=== PATIENT | female | born 1960 | race Caucasian/White ===

== ENCOUNTER → 2016-06-22 | Outpatient (CLI) | payer OTHER ==
[~2016-06-22] VITALS: Ht 157.5 cm; Wt 109.1 kg
[~2016-06-22] MED LIST: CALCTAB5 PO; EFFSR150 PO; IBUP-1428 PO; MELO7.5T5 PO; ONDA4TAB7 SL; PANT40TA PO; TOPI100T20 PO
[2016-06-22 12:09] VITALS: BP 151/84; PULSE 96; Ht 157.5 cm; Wt 109.1 kg
== END | disposition home or self-care (01) ==
LOC: C.NEUR 11:45
PROVIDERS: ATTEND Internal Medicine Pulmonary Disease
DX: G47.33 Obstructive sleep apnea (adult) (pediatric) (principal); G43.009 Migraine without aura, not intractable, without status migrainosus; I10 Essential (primary) hypertension

== ENCOUNTER → 2016-08-25 | Outpatient (CLI) | payer OTHER ==
--- NOTE | 2016-08-25 12:32 | MAMMOGRAPHY REPORT ---
BILATERAL DIGITAL SCREENING MAMMOGRAM TOMOSYNTHESIS WITH CAD: 08/25/2016 CLINICAL HISTORY: Routine screening. Patient has no complaints. TECHNIQUE: Breast tomosynthesis in addition to standard 2D mammography was performed. Current study was also evaluated with a Computer Aided Detection (CAD) system. COMPARISON: Comparison is made to exams dated: 08/21/2015 mammogram, 08/14/2013 mammogram, 08/20/2014 mammogram, 08/08/2012 mammogram, and 02/15/2012 mammogram - [facility]. BREAST COMPOSITION: The tissue of both breasts is almost entirely fatty. FINDINGS: No suspicious masses, calcifications, or areas of architectural distortion are noted in e ither breast. There has been no significant interval change compared to prior exams. There are stab le postsurgical changes from bilateral reduction mammoplasty. Bilateral benign-appearing calcificat ions are not significantly changed. Bilateral asymmetries are stable. IMPRESSION: ACR BI-RADS CATEGORY 2: BENIGN There is no mammographic evidence of malignancy. A 1 year screening mammogram is recommended. The p atient will receive written notification of the results. Approximately 10% of breast cancers are not detected with mammography. A negative mammographic repor t should not delay biopsy if a clinically suggestive mass is present. Alena Cervantes M.D. ah/:08/25/2016 07:40:42 Credit Support Counselor: Selene HARTMAN(R)(M), [facility] letter sent: Normal 1/2 BI-RADS Code: ACR BI-RADS Category 2: Benign
== END | disposition home or self-care (01) ==
LOC: C.MAMM 07:13
PROVIDERS: ATTEND Family Medicine
DX: Z12.31 Encounter for screening mammogram for malignant neoplasm of breast (principal)

== ENCOUNTER → 2017-06-21 | Outpatient (CLI) | payer OTHER ==
[~2017-06-21] VITALS: Ht 157.5 cm; Wt 110.7 kg
[2017-06-21 15:26] VITALS: BP 135/82; PULSE 83; Ht 157.5 cm; Wt 110.7 kg
== END | disposition home or self-care (01) ==
LOC: C.NEUR 14:42
PROVIDERS: ATTEND Internal Medicine Pulmonary Disease
DX: G47.33 Obstructive sleep apnea (adult) (pediatric) (principal); I10 Essential (primary) hypertension; G43.009 Migraine without aura, not intractable, without status migrainosus

== ENCOUNTER → 2017-08-31 | Outpatient (CLI) | payer OTHER ==
--- NOTE | 2017-09-01 07:49 | MAMMOGRAPHY REPORT ---
BILATERAL DIGITAL SCREENING MAMMOGRAM TOMOSYNTHESIS WITH CAD: 08/31/2017 CLINICAL HISTORY: Routine screening. TECHNIQUE: Breast tomosynthesis in addition to standard 2D mammography was performed. Current study was also evaluated with a Computer Aided Detection (CAD) system. COMPARISON: Comparison is made to exams dated: 08/25/2016 mammogram, 08/20/2014 mammogram, 08/21/2015 m ammogram, 08/14/2013 mammogram, 08/08/2012 mammogram, and 08/06/2011 mammogram - [facility]. BREAST COMPOSITION: The tissue of both breasts is almost entirely fatty. FINDINGS: There is evidence of bilateral reduction mammoplasty. Stable focal asymmetry in the upper outer quadrant of the right breast appears similar dating back to at least 07/31/2009, therefore likel y benign. No new suspicious mass, architectural distortion or cluster of microcalcifications is seen . IMPRESSION: ACR BI-RADS CATEGORY 1: NEGATIVE There is no mammographic evidence of malignancy. A 1 year screening mammogram is recommended. The pa tient will receive written notification of the results. Approximately 10% of breast cancers are not detected with mammography. A negative mammographic report should not delay biopsy if a clinically suggestive mass is present. Caitlin Byrne M.D. ay/:08/31/2017 08:09:53 Endodontics Dentist: John Paul HARTMAN(Hi)(M), [facility] letter sent: Normal 1/2 BI-RADS Code: ACR BI-RADS Category 1: Negative
== END | disposition home or self-care (01) ==
LOC: C.MAMM 07:17
PROVIDERS: ATTEND Family Medicine
DX: Z12.31 Encounter for screening mammogram for malignant neoplasm of breast (principal)

== ENCOUNTER 2023-02-01 23:40 | Inpatient (IN) ==
[2023-02-02 00:24] LABS: Appearance Urine Slightly Cloudy (Clear); Bilirubin Urine Negative (Negative); Blood Urine Negative (Negative); Color Urine Yellow; Glucose Urine UA Negative (Negative); Ketones Urine Negative (Negative); Leukocyte Esterase Urine Negative (Negative); Nitrite Urine Negative (Negative); Protein Urine Negative (Negative); Urobilinogen Urine Negative (Negative)
[2023-02-02 00:25] LABS: Basophils # (auto) 0.02 K/uL (0.00-0.20); Basophils % (auto) 0.3 %; Eosinophils # (auto) 0.02 K/uL (0.00-0.50); Eosinophils % (auto) 0.3 %; Hemoglobin 12.3 g/dl (12.0-16.0); Immature Granulocytes # (auto) 0.02 K/uL (0.01-0.20); Immature Granulocytes % (auto) 0.3 %; Lymphocytes % (auto) 16.2 %; Mean Corpuscular Hemoglobin 27.8 pg (25.0-34.0); Mean Corpuscular Hgb Conc 33.2 g/dL (32.0-36.0); Mean Corpuscular Volume 83.7 fL (80.0-100.0); Mean Platelet Volume 10.2 fL (9.4-12.4); Monocytes # (auto) 0.29 K/uL (0.11-0.59); Monocytes % (auto) 4.7 %; Neutrophils # (auto) 4.84 K/uL (1.40-6.50); Neutrophils % (auto) 78.2 %; Platelet Count 177 K/uL (130-400); RDW Coefficient of Variation 14.3 % (11.5-14.5); RDW Standard Deviation 43.4 fL (36.4-46.3); Red Blood Count 4.42 M/uL (4.20-5.40); White Blood Count 6.19 K/ul (4.8-10.8)
[2023-02-02 00:42] LABS: Albumin Globulin Ratio 1.5 (0.9-2); Albumin Level 4.1 gm/dl (3.4-5.0); BUN Creatinine Ratio 14.6 (10-20); Creatinine Clr Calc Pharmacy 77.3 ml/min; Est GFR (African American) 88.3 ml/min; Est GFR (Non-African American) 76.2 ml/min; Globulin 2.8 gm/dl (2.5-4.0); Potassium 3.8 mmol/L (3.5-5.1); Total Protein 6.9 gm/dl (6.0-8.3)
[2023-02-02] MEDS ORDERED: ONDANSETRON INJ 2 MG/ML 2 ML VIAL IV STA (00:42)
[2023-02-02] MEDS ORDERED: SODIUM CHLORIDE 0.9% 1,000 ML IV ONE ×3 (00:42→02:56)
[2023-02-02] MEDS ORDERED: MoRPHine SULFATE 4 MG/ML 1 ML CARP\\VIAL IV STA (00:42)
--- NOTE | 2023-02-02 00:44 | Emergency Department Note ---
Impression & Plan Fever ADMIT ED Provider Note HPI: The patient is a 63-year-old female who presents emergency department with a chief complaint of epigastric pain. Patient states this pain has been ongoing since yesterday morning. Patient states that she was drinking on Tuesday aftern oon had multiple alcoholic beverages and the pain began Tuesday morning when she woke up. Patient states that last night she also began developing some subjective fevers. Patient denies any vomiting but states the pain was getting worse today and therefore she came to the ED to be assessed. Patient states she has had a diminished appetite, on arrival here to the ED the patient is hemodynamically stable, she is in no acute distress on my initial assessment. ROS: - Per HPI Differential Diagnosis: Acute gastritis, acute pancreatitis, acute cholecystitis, choledocholithiasis, diverticulitis flare, pneumonia, urinary tract infection, pyelonephritis, amongst other potential pathologies. *Outpatient medications and allergy history reviewed. *Pertinent external medical records reviewed. PE: General: Alert HEENT: Normocephalic, trachea midline Eyes: Extraocular eye movement is intact, no scleral erythema Pulmonary: Clear to auscultation bilaterally, no wheezing Cardio: Regular rate and rhythm GI: Abdomen is soft to palpation, there is moderate tenderness over the e pigastric area to palpation without guarding or rigidity : No suprapubic tenderness MSK: No evidence of trauma or malformation of the extremities, no edema Skin: No evidence of rash Neuro: Alert, no focal deficits Psychiatric: Cooperative feed mixer: (As interpreted by myself): - An order was placed for continuous cardiac monitoring - Patient was noted to be in sinus rhythm with a rate of 102 EKG: (As interpreted by myself): Rate: 85 Rhythm: Normal sinus rhythm Intervals: Within normal limits ST changes: No ST elevation Time: 0008 Interventions provided in ED: -IV Tylenol, IV fluid bolus, IV Zofran, IV cefepime Medical Decision Making: Shortly after the patient arrived IV was established lab work obtained, patient was placed on drug abuse social worker. Lab work shows no leukocytosis, hemoglobin is normal, platelet count is normal, CMP does not show any critical findings, lipase is noted to be slightly elevated at 151. Urinalysis does not show any evidence of infection. Viral panel testing was obtained and is negative. CT imaging of the abdomen pelvis does not show any acute inflammatory pathology. There is no evidence of any peripancreatic inflammation. Patient's lipase is slightly elevated at 151. She does have epigastric tenderness, she may have an early mild pancreatitis. While here in the ED patient became tachycardic into the low 100s and also spiked a fever to 38.3. She denies any headache and does not appear meningitic on my exam, denies any recent cough or shortness of breath. Denies any recent dysuria. Unclear source for the patient's fever but given her abdominal pain and worsening vital signs she was ordered a full 30 cc/kg of IV fluid, lactic acid, procalcitonin, Lyme testing, and Anaplasma testing were also added. Chest x-ray also added. Patient was prophylactically treated with IV cefepime following drawing blood cultures. I discussed all the above findings with the patient, at this time given fever of unknown origin with tachycardia will admit for broad-spectrum antibiotics and follow-up on blood cultures over concern for sepsis of unknown origin. Patient is in agreement to this plan. [facility] hospitalist service was consulted for admission and the patient was placed for admission in stable condition. Consultants: Dr. Tracy, hospitalist Disposition discussion held by myself with: Patient Diagnosis: 1. Fever of unknown origin 2. Abdominal pain, acute 3. Nausea, acute 4. Elevated lipase Disposition: Admission Gen Guzman DO Emergency Medicine Past Med/Surg History Medical History Common migraine without aura Depression Diabetes mellitus, type 2 Diverticular disease Esophageal reflux Hepatic steatosis Hiatal hernia HTN (hypertension) Hyperlipidemia IBS (irritable bowel syndrome) Insomnia Severe sleep apnea Vertigo Surgical History History of colonoscopy History of esophagogastroduodenoscopy (EGD) History of tooth extraction Hx of arthroscopy of left knee Hx of cataract extraction Hx of section S/P ORIF (open reduction internal fixation) fracture S/P reduction mammoplasty Tear of meniscus of left knee Family History Mother Lung cancer Heart valve replaced Stomach cancer Gallbladder disease Hypertension Kidney disease Lung disease Father Lung cancer Sister Hypertension Atrial fibrillation Ovarian cancer Brother Obstructive sleep apnea Atrial fibrillation Other No significant family history Denies family history of Prostate cancer Myocardial infarction Breast cancer Colorectal cancer Social History Smoking Status: Never smoker Second Hand Exposure: Yes (hx. parents smoked); Do You Dip or Chew Tobacco: No; Hx Alcohol Use: Yes Alcohol type: beer, wine and hard liquor Alcohol Intake Frequency: 2-3 x/Week Alcohol Intake Frequency Comment: 3 drinks/week Hx Substance Use: No Preferred Language: Turkmen Communication Ability: Effective Visual Impairment: No Limitations Hearing Ability: Normal Tube Turner Required: No Beliefs That Will Affect Care: None marital status: Current Living Situation: Spouse current occupational status: retired current occupation: [employer] Work[employer] How many Children do You have: 1 Feels Safe at Home: Yes Childhood Exposure to Second-Hand Smoke: Yes Diet: regular caffeine: Yes during the past year weight has: decreased > 10 lbs Dental Care, Regularly: Yes Physical Activity Frequency: Does not Exercise Seatbelt Use: always Sunscreen Use: Yes Assistive Devices: CPAP and Glasses Allergies Allergies Allergy/AdvReac Type Severity Reaction Status Date / Time hydromorphone [From Dilaudid] AdvReac Severe Migraine Verified 02/02/23 00:53 morphine AdvReac Severe HEADACHE Verified 02/02/23 00:53 Home Meds Home Medications Medication Instructions Recorded Confirmed lorazepam 0.5 mg tablet 0.5 mg PO UD PRN Anxiety #30 tabs 12/28/18 02/02/23 meclizine 25 mg tablet 12.5 - 25 mg PO UD PRN Vertigo #30 03/06/19 02/02/23 tabs cholecalciferol (vitamin D3) 125 125 mcg PO QAM 11/17/21 02/02/23 mcg (5,000 unit) capsule alendronate 5 mg tablet 5 mg PO WK 03/23/22 02/02/23 atorvastatin 10 mg tablet 10 mg PO QPM 02/02/23 02/02/23 metformin 750 mg tablet,extended 750 mg PO QAM 02/02/23 02/02/23 release 24 hr semaglutide 1 mg/dose (4 mg/3 mL) 1 mg subcut WK 02/02/23 02/02/23 subcutaneous pen injector Previous Rx's Medication Instructions Recorded cyclobenzaprine 5 mg tablet 5 mg PO TID PRN muscle spasm #30 12/13/19 tabs dicyclomine 20 mg tablet 20 mg PO QID PRN diarrhea #120 tabs 11/13/20 naproxen 500 mg tablet 500 mg PO BID PRN pain #14 tabs 05/13/21 blood-glucose meter (SmithaTouch #1 ea 08/11/21 Ultra2 Meter kit) pen needle, diabetic 32 gauge x #100 ea 11/04/21" (BD Manju 2nd Gen Pen Needle) lancets (TanslerTouch UltraSoft #100 ea 04/19/22 Lancets) lisinopril 10 mg tablet 10 mg PO QAM #90 tabs 11/08/22 pantoprazole 40 mg tablet,delayed 40 mg PO QAM #90 tabs 11/08/22 release venlafaxine 75 mg capsule,extended 75 mg PO QAM #90 caps 11/08/22 release 24 hr Results & Data (ED) Vital Signs Vital Signs - 24 hr 02/01/23 23:45 02/02/23 00:30 02/02/23 01:00 Temperature 37.5 C Temperature Source Temporal Artery Scan Pulse Rate 95 H 90 82 Pulse Rate from SpO2 Sensor 89 83 Respiratory Rate 17 23 22 Blood Pressure 121/77 148/82 H 159/73 H Blood Pressure Mean 91 104 101 Pulse Oximetry 95 96 93 Oxygen Delivery Method Room Air Room Air Room Air Sepsis Recent Fever Within 48 Hours Yes Sepsis New/Unexplained Change in Mental Status No Sepsis Action Taken by Nursing No Action Required 02/02/23 01:32 02/02/23 01:34 02/02/23 01:34 Temperature Temperature Source Pulse Rate 122 H 114 H Pulse Rate from SpO2 Sensor 115 H Respiratory Rate 15 17 Blood Pressure 146/91 H Blood Pressure Mean 108 Pulse Oximetry 98 Oxygen Delivery Method Sepsis Recent Fever Within 48 Hours Sepsis New/Unexplained Change in Mental Status Sepsis Action Taken by Nursing 02/02/23 02:03 02/02/23 02:00 Temperature 38.3 C H Temperature Source Oral Pulse Rate 111 H Pulse Rate from SpO2 Sensor 111 H Respiratory Rate 24 Blood Pressure 130/76 Blood Pressure Mean 94 Pulse Oximetry 94 Oxygen Delivery Method Room Air Sepsis Recent Fever Within 48 Hours Sepsis New/Unexplained Change in Mental Status Sepsis Action Taken by Nursing Laboratory Data 02/02/23 00:00 02/02/23 00:00 Lab Results 02/02/23 02/02/23 02/02/23 Range/Units 00:00 00:00 00:00 WBC 6.19 (4.8-10.8) K/ul RBC 4.42 (4.20-5.40) M/uL Hgb 12.3 (12.0-16.0) g/dl Hct 37.0 (37.0-47.0) % MCV 83.7 (80.0-100.0) fL MCH 27.8 (25.0-34.0) pg MCHC 33.2 (32.0-36.0) g/dL RDW Std Deviation 43.4 (36.4-46.3) fL RDW Coeff of Louis 14.3 (11.5-14.5) % Plt Count 177 (130-400) K/uL MPV 10.2 (9.4-12.4) fL Immature Gran % (Auto) 0.3 % Neut % (Auto) 78.2 % Lymph % (Auto) 16.2 % [place] % (Auto) 4.7 % Eos % (Auto) 0.3 % Baso % (Auto) 0.3 % Neut # (Auto) 4.84 (1.40-6.50) K/uL Lymph # (Auto) 1.00 L (1.20-3.40) K/uL [place] # (Auto) 0.29 (0.11-0.59) K/uL Eos # (Auto) 0.02 (0.00-0.50) K/uL Baso # (Auto) 0.02 (0.00-0.20) K/uL Immature Gran # (Auto) 0.02 (0.01-0.20) K/uL PT 11.0 (9.0-12.0) Seconds INR 1.0 (0.9-1.1) Sodium 135 L (136-145) mmol/L Potassium 3.8 (3.5-5.1) mmol/L Chloride 101 (98-107) mmol/L Carbon Dioxide 25 (21-32) mmol/L Anion Gap 9 (3-11) BUN 12 (6-23) mg/dl Creatinine 0.82 (0.6-1.2) mg/dl Est Cr Clr Drug Dosing 77.3 ml/min Est GFR ( Amer) 88.3 ml/min Est GFR (Non-Af Amer) 76.2 ml/min BUN/Creatinine Ratio 14.6 (10-20) Glucose 125 H (70-99(Fasting)) mg/dl Calcium 9.0 (8.6-10.3) mg/dl Total Bilirubin 1.0 (0.2-1.0) mg/dl AST 30 (13-39) U/L ALT 74 H (7-52) U/L Alkaline Phosphatase 74 (34-104) U/L Troponin I High Sens 3.4 (0-14) pg/ml Total Protein 6.9 (6.0-8.3) gm/dl Albumin 4.1 (3.4-5.0) gm/dl Globulin 2.8 (2.5-4.0) gm/dl Albumin/Globulin Ratio 1.5 (0.9-2) Lipase 151 H (11-82) U/L Urine Color Urine Appearance (Clear) Urine pH (4.5-7.5) Ur Specific Violet (1.000-1.030) Urine Protein (Negative) Urine Glucose (UA) (Negative) Urine Ketones (Negative) Urine Blood (Negative) Urine Nitrite (Negative) Urine Bilirubin (Negative) Urine Urobilinogen (Negative) Ur Leukocyte Esterase (Negative) Adenovirus (PCR) (NotDetected) B. pertussis DNA (PCR) (NotDetected) B.parapertussis DNA PCR (NotDetected) C. pneumoniae DNA (PCR) (NotDetected) Coronavirus OC43 (PCR) (NotDetected) Coronavirus HKU1 (PCR) (NotDetected) Coronavirus 229E (PCR) (NotDetected) SARS-CoV-2 (PCR) (NotDetected) Coronavirus NL63 (PCR) (NotDetected) Human Metapneumovir PCR (NotDetected) Influenza Type A (PCR) (NotDetected) Influenza Type B (PCR) (NotDetected) M. pneumoniae (PCR) (NotDetected) Parainfluenza 1 (PCR) (NotDetected) Parainfluenza 2 (PCR) (NotDetected) Parainfluenza 3 (PCR) (NotDetected) Parainfluenza 4 (PCR) (NotDetected) RSV (PCR) (NotDetected) Entero/Rhino (PCR) (NotDetected) 02/02/23 02/02/23 Range/Units 00:00 01:44 WBC (4.8-10.8) K/ul RBC (4.20-5.40) M/uL Hgb (12.0-16.0) g/dl Hct (37.0-47.0) % MCV (80.0-100.0) fL MCH (25.0-34.0) pg MCHC (32.0-36.0) g/dL RDW Std Deviation (36.4-46.3) fL RDW Coeff of Louis (11.5-14.5) % Plt Count (130-400) K/uL MPV (9.4-12.4) fL Immature Gran % (Auto) % Neut % (Auto) % Lymph % (Auto) % [place] % (Auto) % Eos % (Auto) % Baso % (Auto) % Neut # (Auto) (1.40-6.50) K/uL Lymph # (Auto) (1.20-3.40) K/uL [place] # (Auto) (0.11-0.59) K/uL Eos # (Auto) (0.00-0.50) K/uL Baso # (Auto) (0.00-0.20) K/uL Immature Gran # (Auto) (0.01-0.20) K/uL PT (9.0-12.0) Seconds INR (0.9-1.1) Sodium (136-145) mmol/L Potassium (3.5-5.1) mmol/L Chloride (98-107) mmol/L Carbon Dioxide (21-32) mmol/L Anion Gap (3-11) BUN (6-23) mg/dl Creatinine (0.6-1.2) mg/dl Est Cr Clr Drug Dosing ml/min Est GFR ( Amer) ml/min Est GFR (Non-Af Amer) ml/min BUN/Creatinine Ratio (10-20) Glucose (70-99(Fasting)) mg/dl Calcium (8.6-10.3) mg/dl Total Bilirubin (0.2-1.0) mg/dl AST (13-39) U/L ALT (7-52) U/L Alkaline Phosphatase (34-104) U/L Troponin I High Sens (0-14) pg/ml Total Protein (6.0-8.3) gm/dl Albumin (3.4-5.0) gm/dl Globulin (2.5-4.0) gm/dl Albumin/Globulin Ratio (0.9-2) Lipase (11-82) U/L Urine Color Yellow Urine Appearance Slightly Cloudy (Clear) Urine pH 6.0 (4.5-7.5) Ur Specific Violet 1.010 (1.000-1.030) Urine Protein Negative (Negative) Urine Glucose (UA) Negative (Negative) Urine Ketones Negative (Negative) Urine Blood Negative (Negative) Urine Nitrite Negative (Negative) Urine Bilirubin Negative (Negative) Urine Urobilinogen Negative (Negative) Ur Leukocyte Esterase Negative (Negative) Adenovirus (PCR) Not Detected (NotDetected) B. pertussis DNA (PCR) Not Detected (NotDetected) B.parapertussis DNA PCR Not Detected (NotDetected) C. pneumoniae DNA (PCR) Not Detected (NotDetected) Coronavirus OC43 (PCR) Not Detected (NotDetected) Coronavirus HKU1 (PCR) Not Detected (NotDetected) Coronavirus 229E (PCR) Not Detected (NotDetected) SARS-CoV-2 (PCR) Not Detected (NotDetected) Coronavirus NL63 (PCR) Not Detected (NotDetected) Human Metapneumovir PCR Not Detected (NotDetected) Influenza Type A (PCR) Not Detected (NotDetected) Influenza Type B (PCR) Not Detected (NotDetected) M. pneumoniae (PCR) Not Detected (NotDetected) Parainfluenza 1 (PCR) Not Detected (NotDetected) Parainfluenza 2 (PCR) Not Detected (NotDetected) Parainfluenza 3 (PCR) Not Detected (NotDetected) Parainfluenza 4 (PCR) Not Detected (NotDetected) RSV (PCR) Not Detected (NotDetected) Entero/Rhino (PCR) Not Detected (NotDetected) Administered Medications Discontinued Medications Sodium Chloride (Nss 1000ml) 1,000 mls @ 999 mls/hr IV .Q1H1M ONE Stop: 02/02/23 01:42 Last Infusion: 02/02/23 01:59 Dose: 0 mls/hr Documented By: Admin: 02/02/23 00:53 Dose: 999 mls/hr Documented By: MARYJO Acetaminophen (Ofirmev) 1,000 mg in 100 mls @ 400 mls/hr IV NOW STA Stop: 02/02/23 02:18 Last Infusion: 02/02/23 02:28 Dose: 0 mls/hr Documented By: Admin: 02/02/23 02:07 Dose: 400 mls/hr Documented By: MARYJO Ioversol (Optiray 320 100ml) 100 ml IV ONCE ONE Stop: 02/02/23 01:33 Last Admin: 02/02/23 01:32 Dose: 90 ml Documented By: PHU Morphine Sulfate (Morphine Sulfate 4 Mg/Ml 1 Ml Carp\\Vial) 4 mg IV NOW STA Stop: 02/02/23 00:43 Last Admin: 02/02/23 00:50 Dose: Not Given Documented By: MARYJO Ondansetron HCl (Ondansetron Inj 2 Mg/Ml 2 Ml Vial) 4 mg IV NOW STA Stop: 02/02/23 00:43 Last Admin: 02/02/23 00:53 Dose: 4 mg Documented By: MARYJO Imaging Data Radiologist's Impression: Abdomen/Pelvis CT 02/02/23 00:36 Exam(s): CT ABDOMEN + PELVIS With Contrast IV Amt: 90 ML OPTIRAY 320 EXAM: CT Abdomen and Pelvis With Intravenous Contrast CLINICAL HISTORY: Reason for exam: epigastric pain. TECHNIQUE: Axial computed tomography images of the abdomen and pelvis with intravenous contrast. CTDI is 28.04 mGy and DLP is 1437.97 mGy-cm. Automated exposure control was utilized for the study. A dose lowering technique was utilized adhering to the principles of ALARA. CONTRAST: Patient received 90 ML OPTIRAY 320 of IV contrast COMPARISON: 02/12/2018. FINDINGS: Lung bases: Minimal bilateral lower lobe atelectasis. ABDOMEN: Liver: Mild diffuse fatty liver. Gallbladder and bile ducts: Unremarkable. No calcified stones. No ductal dilation. Pancreas: Unremarkable. No mass. No ductal dilation. Spleen: Unremarkable. No splenomegaly. Adrenals: Unremarkable. No mass. Kidneys and ureters: Unremarkable. No solid mass. No hydronephrosis. Stomach and bowel: Mild multilevel diverticulosis with no signs of diverticulitis. No obstruction. PELVIS: Appendix: Normal appendix. Bladder: Unremarkable. No mass. Reproductive: Unremarkable as visualized. ABDOMEN and PELVIS: Intraperitoneal space: Unremarkable. No free air. No significant fluid collection. Bones/joints: Multilevel degenerative disease of the spine. No acute fracture. No dislocation. Soft tissues: Unremarkable. Vasculature: Unremarkable. No abdominal aortic aneurysm. Lymph nodes: Unremarkable. No enlarged lymph nodes. IMPRESSION: 1. Diverticulosis with no signs of diverticulitis. No acute appendicitis or bowel obstruction. 2. Mild diffuse fatty liver, otherwise unremarkable abdominal viscera. Electronically signed by: Ny Adam MD 02/02/23 02:22 AM Discharge Plan Visit Data Chief Complaint: Abdominal Pain Stated Complaint: ABDOMINAL PAIN -UPPER INTO BACK,[id number] ED Provider: Gen Guzman Discharge Problem: Fever Forms Stand Alone Forms: [facility] [employer] Prescriptions Prescriptions: No Action dicyclomine 20 mg tablet 20 mg PO QID PRN (Reason: diarrhea) Qty: 120 2RF (DME) pen needle, diabetic [BD Manju 2nd Gen Pen Needle] 32 gauge x 5/32" needle See Rx Instructions .Route Qty: 100 5RF Rx Instructions: USE ONCE DAILY WITH INSULIN; DX CODE- E11.9 (DME) lancets [TanslerTouch UltraSoft Lancets] [facility] See Rx Instructions .Route Qty: 100 3RF Rx Instructions: TEST TWICE DAILY lisinopril 10 mg tablet 10 mg PO QAM Qty: 90 1RF Rx Instructions: TAKE 1 TABLET EVERY MORNING venlafaxine 75 mg capsule,extended release 24hr 75 mg PO QAM Qty: 90 1RF Rx Instructions: TAKE 1 CAPSULE EVERY MORNING pantoprazole 40 mg tablet,delayed release (DR/EC) 40 mg PO QAM Qty: 90 1RF Rx Instructions: TAKE 1 TABLET EVERY MORNING lorazepam 0.5 mg tablet 0.5 mg PO UD PRN (Reason: Anxiety) Qty: 30 meclizine 25 mg tablet 12.5 - 25 mg PO UD PRN (Reason: Vertigo) Qty: 30 (DME) blood-glucose meter [TanslerTouch Ultra2 Meter] Kit See Rx Instructions .Route Qty: 1 0RF Rx Instructions: TEST TWICE DAILY cholecalciferol (vitamin D3) 125 mcg (5,000 unit) capsule 125 mcg PO QAM alendronate 5 mg tablet 5 mg PO WK Rx Instructions: MONDAYS cyclobenzaprine 5 mg tablet 5 mg PO TID PRN (Reason: muscle spasm) Qty: 30 0RF naproxen 500 mg tablet 500 mg PO BID PRN (Reason: pain) Qty: 14 1RF atorvastatin 10 mg tablet 10 mg PO QPM Rx Instructions: TAKE 1 TABLET DAILY IN THE EVENING metformin 750 mg tablet extended release 24 hr 750 mg PO QAM Rx Instructions: TAKE 1 TABLET DAILY IN THE MORNING semaglutide 1 mg/dose (4 mg/3 mL) pen injector 1 mg subcut WK Rx Instructions: THURSDAYS Referrals Referrals: Gisell Massey MD [Primary Care Provider] -
[2023-02-02 00:48] LABS: Troponin I High Sensitivity 3.4 pg/ml (0-14)
[2023-02-02] MEDS ORDERED: OPTIRAY 320 100ml IV ONE (01:32)
[2023-02-02] MEDS ORDERED: ACETAMINOPHEN 1,000 MG/100 ML VIAL IV STA (02:04)
--- NOTE | 2023-02-02 02:23 | CT Scan Report ---
Exam(s): CT ABDOMEN + PELVIS With Contrast IV Amt: 90 ML OPTIRAY 320 EXAM: CT Abdomen and Pelvis With Intravenous Contrast CLINICAL HISTORY: Reason for exam: epigastric pain. TECHNIQUE: Axial computed tomography images of the abdomen and pelvis with intravenous contrast. CTDI is 28.04 mGy and DLP is 1437.97 mGy-cm. Automated exposure control was utilized for the study. A dose lowering technique was utilized adhering to the principles of ALARA. CONTRAST: Patient received 90 ML OPTIRAY 320 of IV contrast COMPARISON: 02/12/2018. FINDINGS: Lung bases: Minimal bilateral lower lobe atelectasis. ABDOMEN: Liver: Mild diffuse fatty liver. Gallbladder and bile ducts: Unremarkable. No calcified stones. No ductal dilation. Pancreas: Unremarkable. No mass. No ductal dilation. Spleen: Unremarkable. No splenomegaly. Adrenals: Unremarkable. No mass. Kidneys and ureters: Unremarkable. No solid mass. No hydronephrosis. Stomach and bowel: Mild multilevel diverticulosis with no signs of diverticulitis. No obstruction. PELVIS: Appendix: Normal appendix. Bladder: Unremarkable. No mass. Reproductive: Unremarkable as visualized. ABDOMEN and PELVIS: Intraperitoneal space: Unremarkable. No free air. No significant fluid collection. Bones/joints: Multilevel degenerative disease of the spine. No acute fracture. No dislocation. Soft tissues: Unremarkable. Vasculature: Unremarkable. No abdominal aortic aneurysm. Lymph nodes: Unremarkable. No enlarged lymph nodes. IMPRESSION: 1. Diverticulosis with no signs of diverticulitis. No acute appendicitis or bowel obstruction. 2. Mild diffuse fatty liver, otherwise unremarkable abdominal viscera. Electronically signed by: Ny Adam MD 02/02/23 02:22 AM
[2023-02-02] MEDS ORDERED: PANTOprazole 40 MG in SYRINGE 0 ML IV ONE (02:25)
[2023-02-02 02:42] LABS: Adenovirus PCR Not Detected (NotDetected); Bordetella parapertussis PCR Not Detected (NotDetected); Bordetella pertussis PCR Not Detected (NotDetected); Chlamydia pneumoniae PCR Not Detected (NotDetected); Coronavirus 229E PCR Not Detected (NotDetected); Coronavirus CoV-2 (COVID19)PCR Not Detected (NotDetected); Coronavirus HKU1 PCR Not Detected (NotDetected); Coronavirus NL63 PCR Not Detected (NotDetected); Coronavirus OC43PCR Not Detected (NotDetected); Human Metapneumovirus PCR Not Detected (NotDetected); Influenza A PCR Not Detected (NotDetected); Influenza B PCR Not Detected (NotDetected); Mycoplasma pneumoniae PCR Not Detected (NotDetected); Parainfluenza Virus 1 PCR Not Detected (NotDetected); Parainfluenza Virus 2 PCR Not Detected (NotDetected); Parainfluenza Virus 3 PCR Not Detected (NotDetected); Parainfluenza Virus 4 PCR Not Detected (NotDetected); Respiratory Syncytial VirusPCR Not Detected (NotDetected); Rhinovirus/Enterovirus PCR Not Detected (NotDetected)
[2023-02-02] MEDS ORDERED: CEFEPIME 2,000 MG/20 ML VIAL IV STA (02:54)
--- NOTE | 2023-02-02 03:32 | History & Physical Report ---
Date of Service February 02, 2023 Assessment & Plan (1) Hepatic steatosis: (2) Hyperlipidemia: (3) Depression: (4) Esophageal reflux: (5) Transaminitis: (6) Elevated lipase: (7) Right upper quadrant pain: (8) Fever: (9) Hypertension: (10) DM2 (diabetes mellitus, type 2): (11) Severe sleep apnea: Plan Fever/right upper quadrant pain/transaminitis/elevated lipase- CT scan with mild fatty liver ALT 74, lipase 151 Examination and laboratories consistent with gallbladder issue possible gallstone pancreatitis Differential also includes alcohol associated pancreatitis NPO Cefepime 2 g IV every 12 hours Order HIDA scan Pantoprazole 40 mg IV daily NSS + KCl 20 mEq at 80 mils per hour Zofran 4 mg IV every 6 hours as needed Serial CBC with differential, chemistry profile and lipase Patient reports having a EGD performed on 01/03/[address] Peck, in which she had gastric polyps but no other issues Consult GI/surgery depend upon results of HIDA scan Diabetes mellitus- Hold metformin and semaglutide Place on Accu-Cheks with NovoLog SSI Hypertension- Hold lisinopril GERD- Pantoprazole changed to IV as noted above History of Present Illness Chief Complaint: The patient presents to the emergency department with complaint of epigastric pain that began yesterday morning, after having had food and alcohol intake the previous day. Last evening she developed fevers, felt warm, had some nausea wit hout vomiting, and did occasionally have pain radiating from her epigastric area around to her side and back. Primary Care Provider: Gisell Massey MD The patient is a 63-year-old female with a past medical history including hypertension, diabetes mellitus, ELVIRA requiring CPAP, hyperlipidemia, GERD, depression, hepatic steatosis and common migraine without aura. Patient presents emergency department with fever, generalized malaise, epigastric pain radiating to her back, and nausea without vomiting. CT scan of abdomen and pelvis showed mild diffuse fatty liver. Significant abnormal laboratories: ALT 74, lipase 151 and glucose 125 Allergies Allergy/AdvReac Type Severity Reaction Status Date / Time hydromorphone [From Dilaudid] AdvReac Severe Migraine Verified 02/02/23 00:53 morphine AdvReac Severe HEADACHE Verified 02/02/23 00:53 Home Medications Medication Instructions Recorded Confirmed Type lorazepam 0.5 mg tablet 0.5 mg PO UD PRN Anxiety #30 tabs 12/28/18 02/02/23 History meclizine 25 mg tablet 12.5 - 25 mg PO UD PRN Vertigo #30 03/06/19 02/02/23 History tabs cyclobenzaprine 5 mg tablet 5 mg PO TID PRN muscle spasm #30 12/13/19 02/02/23 Rx tabs dicyclomine 20 mg tablet 20 mg PO QID PRN diarrhea #120 tabs 11/13/20 02/02/23 Rx naproxen 500 mg tablet 500 mg PO BID PRN pain #14 tabs 05/13/21 02/02/23 Rx blood-glucose meter (OneTouch #1 ea 08/11/21 01/20/23 Rx Ultra2 Meter kit) pen needle, diabetic 32 gauge x #100 ea 11/04/21 01/20/23 Rx 5/32" (BD Manju 2nd Gen Pen Needle) cholecalciferol (vitamin D3) 125 125 mcg PO QAM 11/17/21 02/02/23 History mcg (5,000 unit) capsule alendronate 5 mg tablet 5 mg PO WK 03/23/22 02/02/23 History lancets (OneTouch UltraSoft #100 ea 04/19/22 01/20/23 Rx Lancets) lisinopril 10 mg tablet 10 mg PO QAM #90 tabs 11/08/22 02/02/23 Rx pantoprazole 40 mg tablet,delayed 40 mg PO QAM #90 tabs 11/08/22 02/02/23 Rx release venlafaxine 75 mg capsule,extended 75 mg PO QAM #90 caps 11/08/22 02/02/23 Rx release 24 hr atorvastatin 10 mg tablet 10 mg PO QPM 02/02/23 02/02/23 History metformin 750 mg tablet,extended 750 mg PO QAM 02/02/23 02/02/23 History release 24 hr semaglutide 1 mg/dose (4 mg/3 mL) 1 mg subcut WK 02/02/23 02/02/23 History subcutaneous pen injector Past Med/Surg History Medical History Common migraine without aura Depression Diabetes mellitus, type 2 Diverticular disease Esophageal reflux Hepatic steatosis Hiatal hernia HTN (hypertension) Hyperlipidemia IBS (irritable bowel syndrome) Insomnia Severe sleep apnea Vertigo Surgical History History of colonoscopy History of esophagogastroduodenoscopy (EGD) History of tooth extraction Hx of arthroscopy of left knee Hx of cataract extraction Hx of section S/P ORIF (open reduction internal fixation) fracture S/P reduction mammoplasty Tear of meniscus of left knee Family History Mother Lung cancer Heart valve replaced Stomach cancer Gallbladder disease Hypertension Kidney disease Lung disease Father Lung cancer Sister Hypertension Atrial fibrillation Ovarian cancer Brother Obstructive sleep apnea Atrial fibrillation Other No significant family history Denies family history of Prostate cancer Myocardial infarction Breast cancer Colorectal cancer Social History Smoking Status: Never smoker Second Hand Exposure: Yes (hx. 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 How many Children do You have: 1 Feels Safe at Home: Yes Childhood Exposure to Second-Hand Smoke: Yes Diet: regular caffeine: Yes during the past year weight has: decreased > 10 lbs Dental Care, Regularly: Yes Physical Activity Frequency: Does not Exercise Seatbelt Use: always Sunscreen Use: Yes Assistive Devices: CPAP and Glasses Review of Systems Review of Systems: The patient denies chest pain, palpitations, shortness of breath, dyspnea on exertion, cough, lower extremity swelling, sore throat, chills, sweats, vomiting, diarrhea , constipation, blood in urine or stool, dysuria, urinary frequency or urgency, lightheadedness, dizziness, headache, memory loss, loss of consciousness, rash, abnormal bruising or bleeding, imbalance, focal or generalized weakness, numbness or tingling in arms or legs, generalized arthralgias or myalgias, neck pain, or night sweats. The review of systems is otherwise negative other than for that already noted above, and at least 10 systems have been reviewed. Physical Exam Physical Exam: The patient is awake, alert and oriented 3, well developed and well nourished, normocephalic and atraumatic, lying in bed and in no acute distress. HEENT--PERRL, EOMI, mucous membranes and oropharynx mildly dry. Neck--supple. No JVD. No bruits. Thyroid normal, trachea midline, no adenopathy. Heart--normal S1 and S2. No murmurs, rubs or gallops. Lungs--clear bilaterally, no respiratory distress, no accessory muscle use. Abdomen--tender upon palpation right upper quadrant greater than epigastric area. Extremities--no cyanosis or clubbing. No edema. Dermatologic--normal skin turgor, normal color, no abnormal lymph nodes, no rash. Neurologic--cranial nerves II through XII grossly intact. Rheumatologic--normal range of motion. Psychiatric--normal affect. Results & Data Results & Data Vital Signs (Past 12 Hours) Vital Signs Temp Pulse Resp BP Pulse Ox O2 Del Method 02/02/23 03:07 37.9 C H 02/02/23 03:00 103 H 22 128/64 92 Room Air 02/02/23 02:00 111 H 24 130/76 94 Room Air 02/02/23 02:03 38.3 C H 02/02/23 01:34 146/91 H 02/02/23 01:34 114 H 17 98 02/02/23 01:32 122 H 15 02/02/23 01:00 82 22 159/73 H 93 Room Air 02/02/23 00:30 90 23 148/82 H 96 Room Air 02/01/23 23:45 37.5 C 95 H 17 121/77 95 Room Air Laboratory Results Laboratory Results WBC 6.19 K/ul (4.8-10.8) 02/02/23 00:00 RBC 4.42 M/uL (4.20-5.40) 02/02/23 00:00 Hgb 12.3 g/dl (12.0-16.0) 02/02/23 00:00 Hct 37.0 % (37.0-47.0) 02/02/23 00:00 MCV 83.7 fL (80.0-100.0) 02/02/23 00:00 MCH 27.8 pg (25.0-34.0) 02/02/23 00:00 MCHC 33.2 g/dL (32.0-36.0) 02/02/23 00:00 RDW Std Deviation 43.4 fL (36.4-46.3) 02/02/23 00:00 RDW Coeff of Louis 14.3 % (11.5-14.5) 02/02/23 00:00 Plt Count 177 K/uL (130-400) 02/02/23 00:00 MPV 10.2 fL (9.4-12.4) 02/02/23 00:00 Immature Gran % (Auto) 0.3 % 02/02/23 00:00 Neut % (Auto) 78.2 % 02/02/23 00:00 Lymph % (Auto) 16.2 % 02/02/23 00:00 [place] % (Auto) 4.7 % 02/02/23 00:00 Eos % (Auto) 0.3 % 02/02/23 00:00 Baso % (Auto) 0.3 % 02/02/23 00:00 Neut # (Auto) 4.84 K/uL (1.40-6.50) 02/02/23 00:00 Lymph # (Auto) 1.00 K/uL (1.20-3.40) L 02/02/23 00:00 [place]eadle # (Auto) 0.29 K/uL (0.11-0.59) 02/02/23 00:00 Eos # (Auto) 0.02 K/uL (0.00-0.50) 02/02/23 00:00 Baso # (Auto) 0.02 K/uL (0.00-0.20) 02/02/23 00:00 Immature Gran # (Auto) 0.02 K/uL (0.01-0.20) 02/02/23 00:00 PT 11.0 Seconds (9.0-12.0) 02/02/23 00:00 INR 1.0 (0.9-1.1) 02/02/23 00:00 Sodium 135 mmol/L (136-145) L 02/02/23 00:00 Potassium 3.8 mmol/L (3.5-5.1) 02/02/23 00:00 Chloride 101 mmol/L (98-107) 02/02/23 00:00 Carbon Dioxide 25 mmol/L (21-32) 02/02/23 00:00 Anion Gap 9 (3-11) 02/02/23 00:00 BUN 12 mg/dl (6-23) 02/02/23 00:00 Creatinine 0.82 mg/dl (0.6-1.2) 02/02/23 00:00 Est Cr Clr Drug Dosing 77.3 ml/min 02/02/23 00:00 Est GFR ( Amer) 88.3 ml/min 02/02/23 00:00 Est GFR (Non-Af Amer) 76.2 ml/min 02/02/23 00:00 BUN/Creatinine Ratio 14.6 (10-20) 02/02/23 00:00 Glucose 125 mg/dl (70-99(Fasting)) H 02/02/23 00:00 Lactate 1.2 mmol/L (0.4-2.0) 02/02/23 02:59 Calcium 9.0 mg/dl (8.6-10.3) 02/02/23 00:00 Total Bilirubin 1.0 mg/dl (0.2-1.0) 02/02/23 00:00 AST 30 U/L (13-39) 02/02/23 00:00 ALT 74 U/L (7-52) H 02/02/23 00:00 Alkaline Phosphatase 74 U/L (34-104) 02/02/23 00:00 Troponin I High Sens 3.4 pg/ml (0-14) 02/02/23 00:00 Total Protein 6.9 gm/dl (6.0-8.3) 02/02/23 00:00 Albumin 4.1 gm/dl (3.4-5.0) 02/02/23 00:00 Globulin 2.8 gm/dl (2.5-4.0) 02/02/23 00:00 Albumin/Globulin Ratio 1.5 (0.9-2) 02/02/23 00:00 Lipase 151 U/L (11-82) H 02/02/23 00:00 Procalcitonin 0.26 ng/ml (0-0.5) 02/02/23 00:00 Urine Color Yellow 02/02/23 00:00 Urine Appearance Slightly Cloudy (Clear) 02/02/23 00:00 Urine pH 6.0 (4.5-7.5) 02/02/23 00:00 Ur Specific [place] 1.010 (1.000-1.030) 02/02/23 00:00 Urine Protein Negative (Negative) 02/02/23 00:00 Urine Glucose (UA) Negative (Negative) 02/02/23 00:00 Urine Ketones Negative (Negative) 02/02/23 00:00 Urine Blood Negative (Negative) 02/02/23 00:00 Urine Nitrite Negative (Negative) 02/02/23 00:00 Urine Bilirubin Negative (Negative) 02/02/23 00:00 Urine Urobilinogen Negative (Negative) 02/02/23 00:00 Ur Leukocyte Esterase Negative (Negative) 02/02/23 00:00 Adenovirus (PCR) Not Detected (NotDetected) 02/02/23 01:44 Anaplasma Smear See Comment 02/02/23 00:00 Babesia Smear See Comment 02/02/23 00:00 B. pertussis DNA (PCR) Not Detected (NotDetected) 02/02/23 01:44 B.parapertussis DNA PCR Not Detected (NotDetected) 02/02/23 01:44 Lyme Disease IgG Ab Negative (Negative) 02/02/23 00:00 Lyme Disease IgM Ab Negative (Negative) 02/02/23 00:00 C. pneumoniae DNA (PCR) Not Detected (NotDetected) 02/02/23 01:44 Coronavirus OC43 (PCR) Not Detected (NotDetected) 02/02/23 01:44 Coronavirus HKU1 (PCR) Not Detected (NotDetected) 02/02/23 01:44 Coronavirus 229E (PCR) Not Detected (NotDetected) 02/02/23 01:44 SARS-CoV-2 (PCR) Not Detected (NotDetected) 02/02/23 01:44 Coronavirus NL63 (PCR) Not Detected (NotDetected) 02/02/23 01:44 Human Metapneumovir PCR Not Detected (NotDetected) 02/02/23 01:44 Influenza Type A (PCR) Not Detected (NotDetected) 02/02/23 01:44 Influenza Type B (PCR) Not Detected (NotDetected) 02/02/23 01:44 M. pneumoniae (PCR) Not Detected (NotDetected) 02/02/23 01:44 Parainfluenza 1 (PCR) Not Detected (NotDetected) 02/02/23 01:44 Parainfluenza 2 (PCR) Not Detected (NotDetected) 02/02/23 01:44 Parainfluenza 3 (PCR) Not Detected (NotDetected) 02/02/23 01:44 Parainfluenza 4 (PCR) Not Detected (NotDetected) 02/02/23 01:44 RSV (PCR) Not Detected (NotDetected) 02/02/23 01:44 Entero/Rhino (PCR) Not Detected (NotDetected) 02/02/23 01:44 Impressions Abdomen/Pelvis CT 02/02/23 00:36 Exam(s): CT ABDOMEN + PELVIS With Contrast IV Amt: 90 ML OPTIRAY 320 EXAM: CT Abdomen and Pelvis With Intravenous Contrast CLINICAL HISTORY: Reason for exam: epigastric pain. TECHNIQUE: Axial computed tomography images of the abdomen and pelvis with intravenous contrast. CTDI is 28.04 mGy and DLP is 1437.97 mGy-cm. Automated exposure control was utilized for the study. A dose lowering technique was utilized adhering to the principles of ALARA. CONTRAST: Patient received 90 ML OPTIRAY 320 of IV contrast COMPARISON: 02/12/2018. FINDINGS: Lung bases: Minimal bilateral lower lobe atelectasis. ABDOMEN: Liver: Mild diffuse fatty liver. Gallbladder and bile ducts: Unremarkable. No calcified stones. No ductal dilation. Pancreas: Unremarkable. No mass. No ductal dilation. Spleen: Unremarkable. No splenomegaly. Adrenals: Unremarkable. No mass. Kidneys and ureters: Unremarkable. No solid mass. No hydronephrosis. Stomach and bowel: Mild multilevel diverticulosis with no signs of diverticulitis. No obstruction. PELVIS: Appendix: Normal appendix. Bladder: Unremarkable. No mass. Reproductive: Unremarkable as visualized. ABDOMEN and PELVIS: Intraperitoneal space: Unremarkable. No free air. No significant fluid collection. Bones/joints: Multilevel degenerative disease of the spine. No acute fracture. No dislocation. Soft tissues: Unremarkable. Vasculature: Unremarkable. No abdominal aortic aneurysm. Lymph nodes: Unremarkable. No enlarged lymph nodes. IMPRESSION: 1. Diverticulosis with no signs of diverticulitis. No acute appendicitis or bowel obstruction. 2. Mild diffuse fatty liver, otherwise unremarkable abdominal viscera. Electronically signed by: Ny Adam MD 02/02/23 02:22 AM Code Status & VTE Plan Code Status Full code VTE Prophylaxis Plan VTE Prophylaxis will be ordered: Yes PG Care Time/CCT Total # of Minutes Spent Total Time Spent with Patient: Total time spent is greater than 50% in coordination of care (as documented) at patient's floor/unit and/or counseling patient: Coding Level of Care Code 61297 INT INP/OBS CARE 3/75MIN Diagnoses Hepatic steatosis K76.0 Hyperlipidemia E78.5 Depression F32.9 Esophageal reflux K21.9 Transaminitis R74.01 Elevated lipase R74.8 Right upper quadrant pain R10.11 Fever R50.9 Hypertension I10 DM2 (diabetes mellitus, type 2) E11.9 Severe sleep apnea G47.30
[2023-02-02 03:38] LABS: Procalcitonin 0.26 ng/ml (0-0.5)
[2023-02-02 03:44] LABS: Lyme Ab IgG w/WB Rflx Negative (Negative); Lyme Ab IgM w/WB Rflx Negative (Negative)
[2023-02-02] MEDS ORDERED: ONDANSETRON INJ 2 MG/ML 2 ML VIAL IV PRN (05:33)
[2023-02-02] MEDS ORDERED: CARBOHYDRATES FOR HYPOGLYCEMIA PO PRN (05:33)
[2023-02-02] MEDS ORDERED: GLUCOSE 10 TAB/TUBE PO PRN (05:33)
[2023-02-02] MEDS ORDERED: GLUCAGON FOR INJ 1 MG VIAL SQ PRN (05:33)
[2023-02-02] MEDS ORDERED: MoRPHine SULFATE 4 MG/ML 1 ML CARP\\VIAL IV PRN (05:33)
[2023-02-02] MEDS ORDERED: DEXTROSE 50% 50 ML SYRINGE IV PRN (05:33)
[2023-02-02] MEDS ORDERED: GLUCOSE 40% GEL 15 GM TUBE PO PRN (05:33)
[2023-02-02] MEDS ORDERED: PNEUMOCOCCAL POLYSACCHARIDES 25 MCG/0.5 ML VIAL/SYR IM ONE (06:17)
[2023-02-02] MEDS: PANTOprazole 40 MG in DEXTROSE 5% 100 ML IV SCH ×3 (06:24→16:08)
[2023-02-02] MEDS: NSS + 20MEQ KCL 20 MEQ/1,000 ML BAG IV SCH ×2 (06:24→18:13)
--- NOTE | 2023-02-02 07:32 | XRay Report ---
XR chest 1V portable CLINICAL HISTORY: fever TECHNIQUE: Single frontal radiograph of the chest was obtained. Comparison: Comparison is made to chest radiograph 02/17/2010 FINDINGS: Exam is limited by underpenetration. The cardiomediastinal silhouette is normal. The lungs are clear. No evidence of pleural effusion or pneumothorax. IMPRESSION: No acute abnormalities and in particular no radiographic evidence of pneumonia. ACT 112: Negative or not required by law. Electronically signed by: Surinder Cortes M.D. 02/02/2023 7:30 AM
[2023-02-02] MEDS: INSULIN ASPART PER UNIT CHARGE SC SCH ×4 (08:57→20:51)
[2023-02-02] MEDS: CEFEPIME 2,000 MG in SYRINGE 0 ML IV SCH ×2 (09:43→22:02)
--- OUTSIDE RECORDS SUMMARY | 2023-02-02 12:54 | External Medical Summary | Summary of Care ---
Author Name Unknown Organization [place] [address] Care Team Providers Care Steel Finisher Name Role Phone Gisell Massey MD Primary Care Provider Reason for Visit * Auth/Cert Specialty Diagnoses / Procedures Referred By Michael t Referred To Contact Diagnoses Combined forms of age-related cataract of left eye Combined forms of age-related cataract of left eye [H25.812] Procedures REMOVE CATARACT, INSERT LENS PROSTH LEFT EXTRACAPSULAR CATARACT REMOVAL WITH INTRAOCULAR LENS Referral ID Status Reason Start Date Expiration Date Visits Re quested Visits Authorized [id number] Encounter Details Date Type Department Care Team Description 03/11/2022 Hospital Encounter OR [facility], Operating Room [facility] [address] [facility] [place] [id number] Eder Alberts MD [facility] Eleazar Schofield [address] [address] Allergies Active Allergy Reactions Severity Noted Date Comments Hydromorphone 12/09/2021 Morphine Hcl 09/29/2010 Per patient-severe migraines documented as of this encounter (statuses as of 03/11/2022) Medications Medication Sig Dispensed Refills Start Date End Date Status VITAMIN D 1000 UNIT PO CAPS 2 capsule daily 30 11 02/12/2009 Active LORAzepam (ATIVAN) 0.5 MG TabletIndications:An xiety state Take 1 Tab by mouth 3 times a day as needed for Anxiety. 30 Tab 0 09/24/2014 Active meclizine (ANTIVERT) 25 MG TabletIndications:Ve rtigo Take 1 Tab by mouth 3 times a day as needed for Dizziness. 30 Tab 1 04/03/2015 Active Additional Information Patient not taking. Reported on 03/08/2022 RELPAX 40 MG Tablet Take 40 mg by mouth as needed. 0 04/28/2015 Active pantoprazole (PROTONIX) 40 MG TBECIndications:Esop hageal reflux Take 1 Tab by mouth daily. 90 Tab 1 12/16/2015 Active lisinopril (PRINIVIL) 10 MG Tablet Take 1 Tab by mouth daily. 0 05/03/2016 Active venlafaxine XR (EFFEXOR XR) 75 MG CP24 Take 1 Cap by mouth daily. 0 05/05/2016 Active Atorvastatin Calcium 10 MG Oral Tablet (Lipitor) atorvastatin 10 mg tablet 0 Active metFORMIN HCl ER 750 MG Oral Tablet Extended Release 24 Hour (Glucophage XR) metformin 750 mg tablet extended release 24 hr 0 Active Basaglar KwikPen 100 UNIT/ML Subcutaneous Solution Pen-injector (Insulin Glargine) Basaglar KwikPen U-100 Insulin 100 unit/mL (3 mL) insulin pen 0 Active Ozempic (1 MG/DOSE) 4 MG/3ML Subcutaneous Solution Pen-injector INJECT 1mg ONCE WEEKLY 0 11/17/2021 Active Alendronate Sodium 70 MG Oral Tablet (Fosamax) 0 12/07/2021 Active CPAP every night at bedtime . 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 Allergic rhinitis due to pollen 11/24/19 16 Plantar fasciitis 11/24/2015 Depression with anxiety 05/19/2015 Migraine without aura, not intractable 1 07/20/2014 Benign paroxysmal vertigo 05/19/2015 Obesity, morbid (more than 100 lbs over ideal weight or BMI > 40) 05/19/2015 Impaired fasting glucose 02/12/2009 Esophageal reflux 02/12/2009 ADVANCE DIRECTIVE INFORMATION 01/18/2007 Overview: Yes, Patient instructed to provide copy of advance directive for provider to review and to be scanned into Electronic Medical Record documented as of this encounter (statuses as of 03/11/2022) Resolved Problems Problem Noted Date Resolved Date Nevus, choroidal 09/29/2010 05/19/2015 Obesity, Class II, BMI 35-39.9, isolated (see ac tual BMI) 11/17/2009 05/19/2015 Overview: Per Obesity Protocol, #19 Retinal edema 09/25/2009 05/19/2015 Major depressive disorder 02/12/20092014 Overview: ICD-10 update of inactive term Migraine without aura, intractable 02/12/2009 05/19/2015 Insomnia 02/12/2009 05/19/2015 Overview: ICD-10 update of inactive term Hypertrophy of breast 12/28/2006 02/12/2009 documented as of this encounter (statuses as of 03/11/2022) Immunizations Name Administration Dates Next Due TDAP (age 10 and older)(Boostrix) 02/18/2010 documented as of this encounter Social History Tobacco Use Types Packs/Day Years Used Date Never Smoker Smokeless Tobacco: Never Used Alcohol Use Standard Drinks/Week Comments Yes 0 (1 standard drink = 0.6 oz pure alcohol) drinks 2 x per month- drinks 2 beer or 2 glasses of wine at a time Alcohol Habits Answer Date Recorded How often do you have a drin k containing alcohol? Not asked How many drinks containing a lcohol do you have on a typical day when you are drinking? Not asked How often do you have six or more drinks on one occasion? Not asked Comment: drinks 2 x per month - drinks 2 beer or 2 glasses of wine at a time 05/19/2015 Sex Assigned at Date Recorded Not on file Job Start Date Occupation Industry Not on file Not on file Not on file documented as of this encounter Last Filed Vital Signs Vital Sign Reading Time Taken Comments Blood Pressure 111/76 03/11/2022 8:36 AM EDT Pulse 78 03/11/2022 8:36 AM EDT Temperature 36.5 C (97.7 F) 03/11/2022 8:21 AM ED T Respiratory Rate 16 03/11/2022 8:36 AM EDT Oxygen Saturation 97% 03/11/2022 8:36 AM EDT Inhaled Oxygen Concentration - - Weight 98.4 kg (217 lb) 03/11/2022 7:06 AM EDT Height 157.5 cm (5' 2.01") 03/11/2022 7:06 AM ED T Body Mass Index 39.68 03/11/2022 7:06 AM EDT documented in this encounter Discharge Instructions * Discharge Instr - AVS* Eder Alberts MD - 02/23/2022 2:00 PM EDT Discharge Date: 03/11/22 You may call Doctor Lexus at during business hours and for after-hours emergencies. Your attending physician at the time of your discharge was: Eder Alberts MD The information below provides you with the instructions and the list of medications you need to betaking following discharge from the hospital. If you have any questions, please ask before leaving.Please carry this letter with you when you see your doctor in the clinic. Diet: Normal diet Activity: No lifting or pushing or pulling more than 10 lbs for 1 week. Driving: Do not drive for 24 hours after surgery . Date you may return to work or school: N/A Follow Up - Return appointment(s): 03/12/22 @11:[address] 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 SPECIAL INSTRUCTIONS EYEDROPS for healing and infection prevention. 8 am (Breakfast) 12 noon (Lunch) 6 pm (Supper) 10 pm (Bedtime) Duration PGB X X X X 1 Day PGB X 4 Weeks 1. Use your eye drops 4 times on the afternoon and evening after your surgery. 2. DO NOT RUB OR PUT PRESSURE ON THE EYE for 4 weeks after surgery. 3. Please keep your surgical eye closed on the ride home and then at home for a total of 1-2 hours after surgery. 4. You may sit, walk, watch TV, read, and perform routine activities. 5. NO exercise for 2 weeks after surgery. It is OK to walk. 6. DO NOT go underwater for 2 weeks after surgery, e.g. no swimming or hot-tubs. 7. It is OK to shower, wash your face, shave, shampoo your hair the day AFTER Surgery (a few drops of water are OK). 8. Continue warm compresses for 5 minutes, 2 times per day. 9. Sleep with the shield taped over your eyes for 2 weeks after surgery. 10. NO eye make-up for 2 weeks after surgery. 11. DO NOT make any eye drop changes to your other eye. 12. Dr. Alberts suggests that all patients remain in the area for a minimum of the one week following surgery if traveling within the [place]. Patients traveling internationally should wait 4 weeks. 13. You may return to work soon after surgery; please discuss this with Dr. Alberts. 14. You can expect the following after surgery during the first 4-6 weeks. Itchiness/scratchiness around the eye. Redness in the white of the eye. Double vision/ Fluctuation in vision. Droopiness of the eyelid. 15. Your vision should gradually improve in days and weeks after surgery. If your vision is gettingworse (not better), or your eye more red, or you are having increasing pain, or you are having new floaters or flashing lights, CALL US IMMEDIATELY. IF YOU HAVE ANY PROBLEMS, QUESTIONS OR CONCERNS, DO NOT HESITATE TO CALL US AT [phone] AT ANY TIME I, Eder Alberts MD personally performed the services described in this documentation. All medical record entries made by the scribe were at my direction and in my presence. I have reviewed the chart and agree that the record reflects my personal performance and is accurate and complete. Eder lujan MD. 03/11/2022. 8:19 AM. documented in this encounter H&P Notes * Eder Alberts MD - 03/11/2022 7:31 AM EDT HISTORY & PHYSICAL INTERVAL NOTE [facility] [place] [address] [facility] [place] [id number] History and Physical Update: Name: Rabia Patel Location: OR [facility]/OR Date: 03/11/2022 Time: 7:31 AM DATE OF HISTORY AND PHYSICAL: 03/08/22 BP: 125 mmHg/48 mmHg (03/11/22705) Pulse: 75 (03/11/22705) Temp: 36.61 C (03/11/22705) Resp: 16 (03/11/22705) SpO2: 99 % (03/11/22705) Does patient take a beta yoli? No Did patient stop anticoagulants? No Heart Exam: regular rate and rhythm Lung Exam: clear to auscultation bilaterally Other Pertinent Physical Exam: none This patient has undergone a preprocedural evaluation. A determination has been made to proceed with the planned procedure under [facility] procedural guidelines and the [facility] Non-Emergent, Elective Medical Services and Treatment Recommendations (published on 09-11-19). The community and hospital prevalence of COVID-19 has been discussed as well as this patient's specific risks associated with SARS-CoV-19 infection. Based upon the clinical acuity and patient-specific care considerations, this procedure is deemed a Tier II - Intermediate acuity treatment or service with either progression or the threat of progressive disease related to the delay in treatment. Not providing the service has the potential for increasing morbidity or mortality. I have reviewed the H&P previously performed and examined the patient today. There are no new findings noted. documented in this encounter Nursing Notes * Haily Fraire RN - 03/11/2022 8:49 AM EDT Patient awake and oriented x3. Denies pain. No drainage from eye noted. Tolerating PO fluids. Discharge instructions given and patient verbalizes understanding. Patient ambulated to private vehicle and discharged to home. * Carmen Mcdonald RN - 03/11/2022 8:[address] Alberts was in room at 0807am; signed in at the end. * Haily Fraire RN - 03/11/2022 8:21 AM EDT Pt received PACU II awake, denies pain, eye tape intact to L eye documented in this encounter Plan of Treatment Upcoming Encounters Date Type Specialty Care Team Description 03/25/2022 Hospital Encounter Surgery Eder Alberts MD [address] [place] [address] 03/25/2022 Surgery Surgery Eder Alberts MD [address] [place] [address] right EXTRACAPSULAR CATARACT REMOVAL WITH INTRAOCULAR LENS Scheduled Orders Name Type Priority Associated Diagnoses Orde r Schedule GLUCOSE METER, POINT OF CARE (COMMUNICATION ORDER) Point of Care Testing Routine As Needed until discontinued starting 03/11/2022 GLUCOSE METER, POINT OF CARE (COMMUNICATION ORDER) Point of Care Testing Routine Perform Now for 1 Occurrences starting 03/11/2022 until 03/11/2022 Scheduled Procedures Name Priority Associated Diagnoses Date/Ti me EXTRACAPSULAR CATARACT REMOVAL WITH INTRAOCULAR LENS Combined forms of age-related cataract of left eye 03/11/2022 7:10 AM EDT EXTRACAPSULAR CATARACT REMOVAL WITH INTRAOCULAR LENS Combined forms of age-related cataract of right eye 03/25/2022 7:28 AM EDT Health Maintenance Due Date Last Done Comments Pneumococcal Vaccine: Pediatrics (0 to 5 Years) and At-Risk Patients (6 to 64 Years) (1 - PCV) 01/21/1966 HIV Screening 01/21/1975 Hepatitis C Screening 01/21/1978 Cologuard: Ages 45-75 01/21/2005 FOBT: Ages 45-75 01/21/2005 Sigmoidoscopy: Ages 45-75 01/21/2005 Zoster Vaccines (1 of 2) 01/21/2010 Depression Screening, Annual for Pts 12 and Over 12/29/2016 12/30/2015 Mammogram 08/20/2017 08/21/2015, 08/04, 08/14/2013, Additional history exists PAP SMEAR-EVERY 3 YRS,AGES 21-65 08/03/2018 08/04/2015, 07/24/2012 Diabetes Screening 11/23/2018 11/24/2015, 0 11/24/2015, 05/24/2015, Additional history exists DTaP,Tdap,and Td Vaccines (2 - Td or Tdap) 02/19/2020 02/18/2010 Lipid Panel 05/24/2020 05/24/2015, 11/05, 02/18/2009 Colonoscopy: Ages 45-75 11/24/2020 11/24/2010 Colorectal Cancer Screening (Colonoscopy 10 Years; Sigmoidoscopy 5 Years; Cologuard 3 Years; FOBT 1 Year): Ages 45-75 11/24/2020 COVID-19 Vaccine (4 - Booster for Moderna series) 08/26/2021 07/01/2021, 09/17/2020, 08/20/2020 Influenza Vaccine (FLU shot) (#1) 2022 GARDASIL-HPV IMMUNIZATION SERIES Aged Out No longer eligible based on patient's age to complete this topic Hepatitis B Aged Out No longer eligi ble based on patient's age to complete this topic MENINGOCOCCAL (MENACTRA/MENVEO) Aged Out No longer eligible based on patient's age to complete this topic documented as of this encounter Implants Implanted Type Area Certified Medical Coding Specialist Device Identifier Shelf Expiration Date Model / Serial / Lot Lens Intraoc 19.0 - [id number] - [id number] Implanted:Qty: 1 on 03/11/2022 by Eder Alberts MD at OR [facility] Left: Eye [employer] 11/03/2026 [id number] / [id number] / [id number] documented as of this encounter Procedures Procedure Name Priority Date/Time Associated Diagnosis Comments GLUCOSE METER, POINT OF CARE PERRY 03/11/2022 8:31 AM EDT GLUCOSE METER, POINT OF CARE PERRY 03/11/2022 7:08 AM EDT documented in this encounter Results * GLUCOSE METER, POINT OF CARE (03/11/2022 8:31 AM EDT) Glucose Meter 97 70 - 120 mg/dL LAB[facility] [place] 57-00 Specimen Blood [facility] [place] [address] [facility] [place] [address] * (ABNORMAL) GLUCOSE METER, POINT OF CARE (03/11/2022 7:08 AM EDT) Glucose Meter 126(H) 70 - 120 mg/dL LAB[facility]ATORY [facility] [place] Specimen Blood [facility] [place] [address] [place] [address] documented in this encounter Administered Medications Inactive Administered Medications - up to 3 most recent administrations Medication Order MAR Action Action Date Dose Rate Site Acetaminophen (Tylenol) tab 650 mg 650 mg, Oral, PRN Pain, Mild, Starting on Jaqueline 03/11/22 at 0832, Until Jaqueline 03/11/22 at 1250, For 1 dose, Maximum of 4 grams (4000 mg) per day., Post-op Diclofenac Sodium (Voltaren) 0.1 % ophthalmic solution 1 Drop 1 Drop, Left eye, Q5 MINUTES, First dose on Jaqueline 03/11/22 at 0730, Last dose on Jaqueline 03/11/22 at 0740, For 3 doses, PRE-OP: One drop to left eye every 5 minutes for 3 doses, Pre-Op Given 03/11/2022 7:18 AM EDT 1 Drop documented in this encounter Active and Recently Administered Medications Times are shown in EDT. Scheduled Medication Order 03/09/2022 03/10/2022 03/11/2022 Diclofenac Sodium (Voltaren) 0.1 % ophthalmic solution 1 Drop (COMPLETED) 1 Drop, Left eye, Q5 MINUTES, First dose on Jaqueline 03/11/22 at 0730, Last dose on Jaqueline 03/11/22 at 0740, For 3 doses, PRE-OP: One drop to left eye every 5 minutes for 3 doses, Pre-Op 07 (Given - Provid er: Paola Church RN)07 (Given - Provider: Paola Churhc RN)07 (Given - Provider: Paola Church RN) moxifloxacin (Vigamox) 0.5 % ophthalmic solution 1 Drop (COMPLETED) 1 Drop, Left eye, Q5 MINUTES, First dose on Jaqueline 03/11/22 at 0730, Last dose on Jaqueline 03/11/22 at 0740, For 3 doses, PRE-OP: One drop to left eye every 5 minutes for 3 doses, Pre-Op 0708 (Given - Provid er: Paola Church RN)0712 (Given - Provider: Paola Church RN)0718 (Given - Provider: Paola Church RN) Povidone-Iodine (Betadine) 5 % 2 mL syringe ophthalmic solution 1 Drop 1 Drop, Left eye, ONCE, On Jaqueline 03/11/22 at 0730, For 1 dose, Pre-Op 0730 (Due) proparacaine (Alcaine) 0.5 % ophthalmic solution 1 Drop (COMPLETED) 1 Drop, Left eye, ONCE, On Jaqueline 03/11/22 at 0730, For 1 dose, PRE-OP: 15 minutes prior to scheduled surgery time for 1 dose, Pre-Op 0708 (Given - Provid er: Paola Church RN) tropicamide 1%-cyclopentolate 1%-phenylephrine 2.5% ophthalmic solution 1 Drop (COMPLETED) 1 Drop, Left eye, Q5 MINUTES, First dose on Jaqueline 03/11/22 at 0730, Last dose on Jaqueline 03/11/22 at 0740, For 3 doses, Pre-Op 0708 (Given - Provid er: Paola Church RN)0712 (Given - Provider: Paola Church RN)0718 (Given - Provider: Paola Church RN) Continuous Medication Order 03/09/2022 03/10/2022 03/11/2022 isolyte-S pH 7.4 infusion Intravenous, at 100 mL/hr, Plasma-LYTE 148, isolyte-S, and isolyte-S pH 7.4 are considered equivalent - including for MAR barcode scanning., CONTINUOUS, Starting on Jaqueline 03/11/22 at 0730, Until Jaqueline 03/11/22 at 1250, Pre-Op 0712 (New Bag - Prov ider: Paola Church RN)0744 (Continue from Pre-Op - Provider: All Oshea CRNA)0817 (Anes Intra-Op Fluid - Provider: All Oshea CRNA) PRN Medication Order 03/09/2022 03/10/202203/1103/11/2022 Acetaminophen (Tylenol) tab 650 mg 650 mg, Oral, PRN Pain, Mild, Starting on Jaqueline 03/11/22 at 0832, Until Jaqueline 03/11/22 at 1250, For 1 dose, Maximum of 4 grams (4000 mg) per day., Post-op balanced salt solution (Bss) ophthalmic solution (CANCELED) ONCE PRN INTRA PROCEDURE, Starting on Jaqueline 03/11/22 at 0809, Until Jaqueline 03/11/22 at 0814, Intra-Op 08 (Given - Provid er: Eder Alberts MD - Comment: qs) DUOVISC inj KIT (CANCELED) ONCE PRN INTRA PROCEDURE, Starting on Jaqueline 03/11/22 at 0809, Until Jaqueline 03/11/22 at 0814, Intra-Op 08 (Given - Provid er: Eder Alberts MD) hydroxypropyl methylcellulose (Ocucoat) 2 % intraocular inj (CANCELED) ONCE PRN INTRA PROCEDURE, Starting on Jaqueline 03/11/22 at 0809, Until Jaqueline 03/11/22 at 0814, Intra-Op 08 (Given - Provid er: Eder Alberts MD) Lidocaine 1 % (PF) inj (CANCELED) ONCE PRN INTRA PROCEDURE, Starting on Jaqueline 03/11/22 at 0809, Until Jaqueline 03/11/22 at 0814, Intra-Op 08 (Given - Provid er: Eder Alberts MD) Moxifloxacin intracameral inj (CANCELED) ONCE PRN INTRA PROCEDURE, Starting on Jaqueline 03/11/22 at 0810, Until Jaqueline 03/11/22 at 0814, Intra-Op 08 (Given - Provid er: Eder Alberts MD) tetracaine (Pontocaine) 0.5 % ophthalmic solution (CANCELED) ONCE PRN INTRA PROCEDURE, Starting on Jaqueline 03/11/22 at 0810, Until Jaqueline 03/11/22 at 0814, Intra-Op 0810 (Given - Provid er: Carmen Mcdonald RN) Triamcinolone Acetonide (Triesence) ophth inj (CANCELED) ONCE PRN INTRA PROCEDURE, Starting on Jaqueline 03/11/22 at 0810, Until Jaqueline 03/11/22 at 0814, Intra-Op 0810 (Given - Provid er: Eder Alberts MD) documented in this encounter Advance Directives Documents on File Type Date Recorded 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 Discussion of Advance Directives occurred with: Patient Does the patient have a Living Will? No Does the patient have Health Care Power of Attor toyin? No Care Teams Steel Finisher Relationship Specialty Start Date End Date Gisell Massey MD [address] [place] [address] PCP - General Family Medicine 03/11/22 documented as of this encounter
--- OUTSIDE RECORDS SUMMARY | 2023-02-02 12:54 | External Medical Summary ---
Author Name Unknown Address Unknown Organization : Laboratory Report Ordering Provider Test Date Status RUMA SCOTT 03/11/2022 08:31:11 Final Observation Date Value Abnormality Reference (Units ) Status Glucose Point of Care 03/11/2022 08:31:11 97 70-120 (mg/dL) Final Performing Location
--- OUTSIDE RECORDS SUMMARY | 2023-02-02 12:54 | External Medical Summary ---
Author Name Unknown Address Unknown Organization : Laboratory Report Ordering Provider Test Date Status RUMA SCOTT 03/11/2022 07:08:18 Final Observation Date Value Abnormality Reference (Units ) Status Glucose Point of Care 03/11/2022 07:08:18 126 Above high normal 70-120 (mg/dL) Final Performing Location
--- OUTSIDE RECORDS SUMMARY | 2023-02-02 12:54 | External Medical Summary ---
Author Name Unknown Address Unknown Organization : Laboratory Report Ordering Provider Test Date Status RUMA SCOTT 03/25/2022 07:07:36 Final Observation Date Value Abnormality Reference (Units ) Status Glucose Point of Care 03/25/2022 07:07:36 128 Above high normal 70-120 (mg/dL) Final Performing Location
--- OUTSIDE RECORDS SUMMARY | 2023-02-02 12:54 | External Medical Summary | Summary of Care ---
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 [H25.811] Procedures REMOVE CATARACT, INSERT LENS PROSTH right EXTRACAPSULAR CATARACT REMOVAL WITH INTRAOCULAR LENS Referral ID Status Reason Start Date Expiration Date Visits Re quested Visits Authorized [id number] Encounter Details Date Type Department Care Team Description 03/25/2022 Hospital Encounter OR [facility], Operating Room [facility] [address] [facility] [place] [id number] Eder Alberts MD [facility] Eleazar Schofield [address] [address] Allergies Active Allergy Reactions Severity Noted Date Comments Hydromorphone 12/09/2021 Morphine Hcl 09/29/2010 Per patient-severe migraines documented as of this encounter (statuses as of 03/25/2022) Medications Medication Sig Dispensed Refills Start Date End Date Status VITAMIN D 1000 UNIT PO CAPS 2 capsule daily 30 11 02/12/2009 Active LORAzepam (ATIVAN) 0.5 MG TabletIndications:An xiety state Take 1 Tab by mouth 3 times a day as needed for Anxiety. 30 Tab 0 09/24/2014 Active Additional Information Patient not taking. Reported on 03/25/2022 meclizine (ANTIVERT) 25 MG TabletIndications:Ve rtigo Take [...] (1 MG/DOSE) 4 MG/3ML Subcutaneous Solution Pen-injector Inject under the skin 2 mg once a week . 0 11/17/2021 Active Alendronate Sodium 70 MG Oral Tablet (Fosamax) 0 12/07/2021 Active CPAP every night at bedtime . 0 Active documented as of this encounter (statuses as of 03/25/2022) Active Problems Problem Noted Date Nevus, choroidal [...] as of this encounter (statuses as of 03/25/2022) Resolved Problems Problem Noted Date Resolved Date [...] as of this encounter (statuses as of 03/25/2022) Immunizations Name Administration Dates Next Due TDAP [...] Sign Reading Time Taken Comments Blood Pressure 117/51 03/25/2022 8:15 AM EDT Pulse 80 03/25/2022 8:15 AM EDT Temperature 36.5 C (97.7 F) 03/25/2022 8:15 AM ED T Respiratory Rate 24 03/25/2022 8:15 AM EDT Oxygen Saturation 95% 03/25/2022 8:15 AM EDT Inhaled Oxygen Concentration - - Weight 98.4 kg (217 lb) 03/08/2022 12:38 PM EDT Height 157.5 cm (5' 2") 03/08/2022 12:38 PM EDT Body Mass Index 39.69 03/08/2022 12:38 PM EDT documented in this encounter Discharge Instructions * Discharge Instr - AVS* Eder Alberts MD - 03/09/2022 11:24 AM EDT Discharge Date: 03/25/22 You may call Doctor Lexus at during [...] school: N/A Follow Up - Return appointment(s): 03/26/22 @9:[address] Barrington [facility]- [facility] ([place]) See your medical underwriter in 1day(s). SPECIAL INSTRUCTIONS EYEDROPS for healing [...] DO NOT HESITATE TO CALL US AT [phone] AT ANY TIME I, Eder Alberts MD personally performed the services described in this documentation. All medical record entries made by the scribe were at my direction and in my presence. I have reviewed the chart and agree that the record reflects my personal performance and is accurate and complete. Eder lujan MD. 03/25/2022. 8:03 AM. documented in this encounter H&P Notes * Eder Alberts MD - 03/25/2022 7:20 AM EDT HISTORY & PHYSICAL INTERVAL NOTE [facility] [place] [address] [facility] [place] [id number] History and Physical Update: Name: Rabia Patel Location: OR [facility]/OR Date: 03/25/2022 Time: 7:20 AM DATE OF HISTORY AND PHYSICAL: 03/08/22 BP: 137 mmHg/51 mmHg (03/25/22655) Pulse: 70 (03/25/22655) Temp: 36.5 C (03/25/22655) Resp: 18 (03/25/22655) SpO2: 96 % (03/25/22655) Does patient take a beta yoli? No Did patient stop anticoagulants? No Heart Exam: regular rate and rhythm Lung Exam: clear to auscultation bilaterally Other Pertinent Physical Exam: none This patient has undergone a preprocedural evaluation. A determination has been made to proceed with the planned procedure under [facility] procedural guidelines and the [facility] Non-Emergent, Elective Medical Services and Treatment Recommendations [...] documented in this encounter Nursing Notes * Donna Hicks RN - 03/25/2022 8:10 AM EDT 0803 Patient arrived to PACU2 s/p right eye procedure. Patient awake and orient. Vital signs stable. No complaints of pain noted. IV fluids infusing per MD order. Report received by RN at bedside. documented in this encounter Plan of Treatment Scheduled Orders Name Type Priority Associated Diagnoses Orde r Schedule GLUCOSE METER, POINT OF CARE (COMMUNICATION ORDER) Point of Care Testing Routine Perform Now for 1 Occurrences starting 03/25/2022 until 03/25/2022 Scheduled Procedures Name Priority Associated Diagnoses Date/Ti me EXTRACAPSULAR CATARACT REMOVAL WITH INTRAOCULAR LENS Combined forms of age-related cataract of right eye 03/25/2022 7:02 AM EDT Health Maintenance Due Date Last [...] of this encounter Implants Implanted Type Area Booking Prizer Device Identifier Shelf Expiration Date Model / Serial / Lot Lens Intraoc 19.0 - [id number] - [id number] Implanted:Qty: 1 on 03/11/2022 by Eder Alberts MD at OR [facility] Left: Eye [employer] 11/03/2026 [id number] / [id number] / [id number] Lens Intraoc 18.0 - [id number] - [id number] Implanted:Qty: 1 on 03/25/2022 by Eder Alberts MD at OR [facility] Right: Eye [employer] 01/03/2027 [id number] / [id number] / [id number] documented as of this encounter Procedures Procedure Name Priority Date/Time Associated Diagnosis Comments GLUCOSE METER, POINT OF CARE PERRY 03/25/2022 7:07 AM EDT documented in this encounter Results * (ABNORMAL) GLUCOSE METER, POINT OF CARE (03/25/2022 7:07 AM EDT) Glucose Meter 128(H) 70 - 120 mg/dL LAB[facility]ATORY P [facility]T [place] [address] Specimen Blood LABORATORY [facility] [address] [place] [address] documented in this encounter Administered Medications Inactive Administered Medications - up to 3 most recent administrations Medication Order MAR Action Action Date Dose Rate Site Diclofenac Sodium (Voltaren) 0.1 % ophthalmic solution 1 Drop 1 Drop, Right eye, Q5 MINUTES, First dose on Jaqueline 03/25/22 at 0715, Last dose on Jaqueline 03/25/22 at 0725, For 3 doses, PRE-OP: One drop to right eye every 5 minutes for 3 doses, Pre-Op Given 03/25/2022 7:09 AM EDT 1 Drop documented in this encounter Active and Recently Administered Medications Times are shown in EDT. Scheduled Medication Order 03/23/2022 03/24/2022 03/25/2022 Diclofenac Sodium (Voltaren) 0.1 % ophthalmic solution 1 Drop (COMPLETED) 1 Drop, Right eye, Q5 MINUTES, First dose on Jaqueline 03/25/22 at 0715, Last dose on Jaqueline 03/25/22 at 0725, For 3 doses, PRE-OP: One drop to right eye every 5 minutes for 3 doses, Pre-Op 0659 (Given - Provid er: Estee Baron RN)0704 (Given - Provider: Estee Baron RN)0709 (Given - Provider: Estee Baron RN) moxifloxacin (Vigamox) 0.5 % ophthalmic solution 1 Drop (COMPLETED) 1 Drop, Right eye, Q5 MINUTES, First dose on Jaqueline 03/25/22 at 0715, Last dose on Jaqueline 03/25/22 at 0725, For 3 doses, PRE-OP: One drop to right eye every 5 minutes for 3 doses, Pre-Op 0659 (Given - Provid er: Estee Baron RN)0704 (Given - Provider: Estee Baron RN)0709 (Given - Provider: Estee Baron RN) Povidone-Iodine (Betadine) 5 % 2 mL syringe ophthalmic solution 1 Drop 1 Drop, Right eye, ONCE, On Jaqueline 03/25/22 at 0715, For 1 dose, Pre-Op 0715 (Due) proparacaine (Alcaine) 0.5 % ophthalmic solution 1 Drop (COMPLETED) 1 Drop, Right eye, ONCE, On Jaqueline 03/25/22 at 0715, For 1 dose, PRE-OP: 15 minutes prior to scheduled surgery time for 1 dose, Pre-Op 0658 (Given - Provid er: Estee Baron RN) tropicamide 1%-cyclopentolate 1%-phenylephrine 2.5% ophthalmic solution 1 Drop (COMPLETED) 1 Drop, Right eye, Q5 MINUTES, First dose on Jaqueline 03/25/22 at 0715, Last dose on Jaqueline 03/25/22 at 0725, For 3 doses 0658 (Given - Provid er: Estee Baron RN)0704 (Given - Provider: Estee Baron RN)0709 (Given - Provider: Estee Baron RN) Continuous Medication Order 03/23/2022 03/24/2022 03/25/2022 isolyte-S pH 7.4 infusion Intravenous, at 100 mL/hr, Plasma-LYTE 148, isolyte-S, and isolyte-S pH 7.4 are considered equivalent - including for MAR barcode scanning., CONTINUOUS, Starting on Jaqueline 03/25/22 at 0715, Until Jaqueline 03/25/22 at 1222, Pre-Op 0709 (New Bag - Prov ider: Estee Baron RN)0734 (Continue from Pre-Op - Provider: Caren Jenkins CRNA)0758 (Paused - Provider: Caren Jenkins CRNA - Comment: Switch to gravity)0759 (Restarted - Provider: Caren Jenkins CRNA) isolyte-S pH 7.4 infusion Intravenous, at 100 mL/hr, Plasma-LYTE 148, isolyte-S, and isolyte-S pH 7.4 are considered equivalent - including for MAR barcode scanning., CONTINUOUS, Starting on Jaqueline 03/25/22 at 0845, Until Jaqueline 03/25/22 at 1222, Post-op PRN Medication Order 03/23/2022 03/24/2022 03/25/2022 balanced salt solution (Bss) ophthalmic solution (CANCELED) ONCE PRN INTRA PROCEDURE, Starting on Jaqueline 03/25/22 at 0751, Until Jaqueline 03/25/22 at 0759, Intra-Op 075 (Given - Provid er: Eder Alberts MD - Comment: qs) DUOVISC inj KIT (CANCELED) ONCE PRN INTRA PROCEDURE, Starting on Jaqueline 03/25/22 at 0751, Until Jaqueline 03/25/22 at 0759, Intra-Op 075 (Given - Provid er: Eder Alberts MD - Comment: qs) hydroxypropyl methylcellulose (Ocucoat) 2 % intraocular inj (CANCELED) ONCE PRN INTRA PROCEDURE, Starting on Jaqueline 03/25/22 at 0752, Until Jaqueline 03/25/22 at 0759, Intra-Op 0752 (Given - Provid er: Eder Alberts MD - Comment: qs) Lidocaine 1 % (PF) inj (CANCELED) ONCE PRN INTRA PROCEDURE, Starting on Jaqueline 03/25/22 at 0752, Until Jaqueline 03/25/22 at 0759, Intra-Op 0752 (Given - Provid er: Eder Alberts MD - Comment: qs) Moxifloxacin intracameral inj (CANCELED) ONCE PRN INTRA PROCEDURE, Starting on Jaqueline 03/25/22 at 0752, Until Jaqueline 03/25/22 at 0759, Intra-Op 0752 (Given - Provid er: Eder Alberts MD - Comment: qs) tetracaine (Pontocaine) 0.5 % ophthalmic solution (CANCELED) ONCE PRN INTRA PROCEDURE, Starting on Jaqueline 03/25/22 at 0742, Until Jaqueline 03/25/22 at 0759, Intra-Op 0742 (Given - Provid er: Amanda Ibrahim RN) Triamcinolone Acetonide (Triesence) ophth inj (CANCELED) ONCE PRN INTRA PROCEDURE, Starting on Jaqueline 03/25/22 at 0752, Until Jaqueline 03/25/22 at 0759, Intra-Op 0752 (Given - Provid er: Eder Alberts MD - Comment: qs) documented in this encounter Advance Directives Documents on File Type Date 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 Discussion of Advance Directives occurred with: Patient Does the patient have a Living Will? No Does the patient have Health Care Power of Attor toyin? No No Code 03/11/2022 6:49 AM 03/11/2022 12:55 PM This order reflects the patients wishes and were consensually agreed upon. Discussion of Advance Directives occurred with: Patient Does the patient have a Living Will? No Does the patient have Health Care Power of Attor toyin? No Care Teams Window Cutter Relationship Specialty Start Date End Date Gisell Massey MD [address] [address] PCP - General Family Medicine 03/11/22 documented as of this encounter
--- OUTSIDE RECORDS SUMMARY | 2023-02-02 12:55 | External Medical Summary | Summary of Care ---
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 [address] [place] [address] Maurice Wilder, [address] [place] [address] Choroidal nevus, right*; Type 2 diabetes mellitus with hemoglobin A1c goal of less than 7.0% ([facility]); Mixed type age-related cataract, both eyes Allergies Active Allergy Reactions Severity Noted Date Comments Hydromorphone 12/09/2021 Morphine Hcl 09/29/2010 Per patient-severe migraines documented as of this encounter (statuses as of 12/24/2021) Medications Medication Sig Dispensed Refills Start Date End Date Status VITAMIN D 1000 UNIT PO CAPS 2 capsule daily 30 11 02/12/2009 Active LORAzepam (ATIVAN) 0.5 MG TabletIndications: Anxiety state Take 1 Tab by mouth 3 times a day as needed for Anxiety. 30 Tab 0 09/24/2014 Active meclizine (ANTIVERT) 25 MG TabletIndications: Vertigo Take 1 Tab by mouth 3 times a day as needed for Dizziness. 30 Tab 1 04/03/2015 Active RELPAX 40 MG Tablet Take 40 mg by mouth as needed. 0 04/28/2015 Active pantoprazole (PROTONIX) 40 MG TBECIndications:Es ophageal reflux Take 1 Tab by mouth daily. [...] MG Oral Tablet (Fosamax) 0 12/07/2021 Active MAGNESIUM 500 MG PO TABS one daily 0 02/12/2009 2 Discontinue d(Medicatio n List Clean Up) documented as of this encounter (statuses as of 12/24/2021) Active Problems Problem Noted Date Nevus, choroidal [...] as of this encounter (statuses as of 12/24/2021) Resolved Problems Problem Noted Date Resolved Date [...] as of this encounter (statuses as of 12/24/2021) Immunizations Name Administration Dates Next Due TDAP (age 10 and older)(Boostrix) 02/18/2010 documented as of this encounter Social History Tobacco Use Types Packs/Day Years Used Date Never Smoker Smokeless Tobacco: Never Used Tobacco Cessation:Counseling Given: No Alcohol Use Standard Drinks/Week Comments Yes 0 [...] Sign Reading Time Taken Comments Blood Pressure 117/65 12/09/2021 9:39 AM EDT Pulse 73 12/09/2021 9:39 AM EDT Temperature - - Respiratory Rate 16 12/09/2021 9:39 AM EDT Oxygen Saturation - - Inhaled Oxygen Concentration - - Weight - - Height - - Body Mass Index - - documented in this encounter Progress Notes * Maurice Wilder, - 12/09/2021 9:30 AM EDT [facility] [place] Nursing notes reviewed. Mood and Affect: normal HPI: Rabia Patel is a 61 year old female who presents for choroidal nevus check No other eye complaints. Denies significant pain. Consultation requested by: Dr. Sexton Base Eye Exam Visual Acuity (Snellen - Linear) Right Left Dist cc 20/25 -1 20/30 -2 Correction: Glasses Tonometry (Tonopen, 9:19 AM) Right Left Pressure 21 21 Pupils Pupils Dark Light Shape React APD Right PERRL 3 2 Round Brisk None Left PERRL 3 2 Round Brisk None Visual Hess (Counting fingers) Right Left Full Full Extraocular Movement Right Left Full Full Dilation Both eyes: 0.5% Proparacaine, 1.0% Mydriacyl, 2.5% Phenylephrine @ 9:19 AM Patient cautioned that effects of dilation may last 2-7 hours dependant upon individual reaction. It was discussed that driving while dilated is not recommended. EXTERNAL: The ocular adnexae are unremarkable. SLE: Lids/Lashes: wnl OU Conjunctiva/Sclera: quiet OU Cornea: clear OU Anterior Chamber: deep and quiet OU Iris: normal OU; no NVI OU Lens: 1-2+NSC OU Dilated fundus exam OD: vitreous: clear optic nerve: 0.3, no edema/pallor/NVD macula: +3x3DD flat amelanotic lesion, no orange pigment/srf vessels: trace av nicking midperiphery: wnl periphery: no RT/RD Dilated fundus exam OS: vitreous: clear optic nerve: 0.3, no edema/pallor/NVD macula: wnl vessels: wnl midperiphery: wnl periphery: no RT/RD OCT Interpretation: OD: wnl, no CME/SRFluid, no PVD, OCT over nevus shows no elevation/srfluid--STABLE OS: wnl, no CME/SRFluid, no PVD--STABLE Fundus Photo Interpretation: 05/07/15 OD: +amelontic lesion, no srfluid/orange pig OS: n/a A/P: 1. 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 DM2 -no retinopathy -recommend HgbA1C <7, BP and lipid control. 3. Cataracts OU -becoming visually significant. CC: Dr. Sexton f/u w/ 2 years F/u w/ Dr. Sexton routine yearly Maurice Wilder DO documented in this encounter Nursing Notes * Chana Campoverde, CARMEN - 12/09/2021 9:19 AM EDT Rabia Patel is a 61 year old year old female referred by Dr. Sexton to evaluate for possible nevus. Patient's name preference, 'Rabia'. Patient currently states she has been seen by Dr. Wilder previously for a "freckle in my eye." Pt states she saw Dr. Sexton recently for an ocular health exam and noted she has not had an exam with aretina specialist since before [facility] and Dr. Sexton recommended she re-establish with a retina specialist. Pt denies pain, flashes, or floaters OU. COMPREHENSIVE OCULAR HISTORY Any history in yourself or blood related family of: -Blindness- No -Macular Degeneration- No -Retinal Detachment- No -Glaucoma/Pressure in the Eye- No -Have you ever had any major surgery of serious injury of or around the eyes- no FAMILY HISTORY: Family History Problem Relation Age of Onset Lung Disorder Mother COPD, smoker Hypertension Mother ESRD, PVD Heart Disorder Mother valve replacement, bicuspid aortic valve Cancer Mother lung Cancer Father ,lung cancer, smoker Hypertension Father Other (Other) Father PVD, carotid stenosis Heart Disorder Sister palpitations No Past Hx Sister No Past Hx Brother No Past Hx Brother No Past Hx Daughter Diabetes No significant family history Eye Problems No significant family history Thyroid Disorder No significant family history Stroke No significant family history SOCIAL HISTORY: Social History Tobacco Use Smoking status: Never Smoker Smokeless tobacco: Never Used Substance Use Topics Alcohol use: Yes Comment: drinks 2 x per month- drinks 2 beer or 2 glasses of wine at a time Drug use: No PMH: Past Medical History: Diagnosis Date Allergic rhinitis due to pollen 11/24/2015 Benign neoplasm of colon 11/24/2010 polyp, path shows hyperplastic tissue repeat in 10 years Benign paroxysmal vertigo 05/19/2015 Depression with anxiety 05/19/2015 Hypertension Migraine without aura, not intractable 05/19/2015 Obesity, morbid (more than 100 lbs over ideal weight or BMI > 40) (FORM[facility]LY [facility]) 05/19/2015 Plantar fasciitis 11/24/2015 Patient Active Problem List Diagnosis Code ADVANCE DIRECTIVE INFORMATION Impaired fasting glucose R73.01 Esophageal reflux K21.9 Depression with anxiety F41.8 Migraine without aura, not intractable G43.009 Benign paroxysmal vertigo H81.10 Obesity, morbid (more than 100 lbs over ideal weight or BMI > 40) ([facility]LY [facility]) E66.01 Allergic rhinitis due to pollen J30.1 Plantar fasciitis M72.2 Nevus, choroidal D31.30 History obtained from: Patient ROS: 1. Constitutional : No weight loss, feeling tired, fever. 2. HENT: No hearing loss, headache. 3. Cardio: No MD, CHF, Aneurysm. 4. Pulm: No asthma, COPD, trouble breathing. 5. GI: Positive for acid reflux. 6. : No protein in urine, dialysis, kidney stones. 7. Neuro: No stroke, seizures. 8. Endo: Positive for diabetes How long have you been diabetic? Since approx age 53. Do you check your sugar daily? YES. Fasting BS this mornin mg/dl. Last Hemoglobin A1C: 7.2 (October 2021) Lab Results Component Value Date/Time HGBA1C 5.4 11/24/2015 08:35 AM HGBA1C 5.9 05/24/2015 09:28 AM HGBA1C 6.1 (H) 02/18/2009 08:16 AM 9. Skin: No rashes, unusual moles. 10. Muscl/skel: No arthritis. 11. Eyes: see exam. Do you drive? yes documented in this encounter Plan of Treatment Health Maintenance Due Date Last Done Comments COVID-19 Vaccine (#1) 1960 Pneumococcal Vaccine: Pediatrics (0 to 5 Years) and At-Risk Patients (6 to 64 Years) (1 - PCV) 01/21/1966 Cologuard: Ages 45-75 01/21/2005 FOBT: Ages 45-75 01/21/2005 Sigmoidoscopy: Ages 45-75 01/21/2005 Zoster Vaccines (1 of 2) 01/21/2010 BREAST CANCER SCREENING DISCUSSION YEARLY AGES 40-75 08/20/2016 08/21/2015, 08/20/2014, 08/14/2013, Additional history exists Depression Screening, Annual for Pts 12 and Over 12/29/2016 12/30/2015 PAP SMEAR-EVERY 3 YRS,AGES 21-65 08/03/2018 08/04/2015, 07/24/2012 Diabetes Screening 11/23/2018 11/24/2015, 0 11/24/2015, 05/24/2015, Additional history exists DTaP,Tdap,and Td Vaccines (2 - Td or Tdap) 02/19/2020 02/18/2010 Lipid Panel 05/24/2020 05/24/2015, 11/05, 02/18/2009 Colonoscopy: Ages 45-75 11/24/2020 11/24/2010 Colorectal Cancer Screening (Colonoscopy 10 Years; Sigmoidoscopy 5 Years; Cologuard 3 Years; FOBT 1 Year): Ages 45-75 11/24/2020 Influenza Vaccine (FLU shot) (#1) 2022 GARDASIL-HPV IMMUNIZATION SERIES Aged Out No longer eligible based on patient's age to complete this topic Hepatitis B Aged Out No longer eligi ble based on patient's age to complete this topic MENINGOCOCCAL (MENACTRA/MENVEO) Aged Out No longer eligible based on patient's age to complete this topic documented as of this encounter Implants Not on filedocumented as of this encounter Visit Diagnoses Diagnosis Choroidal nevus, right- Primary Type 2 diabetes mellitus with hemoglobin A1c goal of less than 7.0% (HCC) Mixed type age-related cataract, both eyes documented in this encounter Advance Directives Documents on File Type Date Recorded 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
--- OUTSIDE RECORDS SUMMARY | 2023-02-02 12:55 | External Medical Summary | Summary of Care ---
Author Name Unknown Organization [place] [address] Care Team Providers Care Photovoltaic Testing Technician Name Role Phone Unavailable Primary Care Provider Unavailabl e Encounter Details Date Type Department Care Team Description 11/09/2021 Orders Only Outcomes Research Department [address] [place] [address] Enrike Ferris CHRA MyCode Research Other*[id number] Allergies Active Allergy Reactions Severity Noted Date Comments Morphine Hcl 09/29/2010 Per patient-severe migraines documented as of this encounter (statuses as of 11/09/2021) Medications Medication Sig Dispensed Refills Start Date End Date Status MAGNESIUM 500 MG PO TABS one daily 0 02/12/2009 Active VITAMIN D 1000 UNIT PO CAPS 2 capsule daily 30 11 02/12/2009 Active LORAzepam (ATIVAN) 0.5 MG TabletIndications:Anxi ety state Take 1 Tab by mouth 3 times a day as needed for Anxiety. 30 Tab 0 09/24/2014 Active meclizine (ANTIVERT) 25 MG TabletIndications:Vert igo Take 1 Tab by mouth 3 times a day as needed for Dizziness. 30 Tab 1 04/03/2015 Active RELPAX 40 MG Tablet Take 40 mg by mouth as needed. 0 04/28/2015 Active pantoprazole (PROTONIX) 40 MG TBECIndications:Esopha geal reflux Take 1 Tab by mouth daily. 90 Tab 1 12/16/2015 Active lisinopril (PRINIVIL) 10 MG Tablet Take 1 Tab by mouth daily. 0 05/03/2016 Active venlafaxine XR (EFFEXOR XR) 75 MG CP24 Take 1 Cap by mouth daily. 0 05/05/2016 Active documented as of this encounter (statuses as of 11/09/2021) Active Problems Problem Noted Date Nevus, choroidal [...] as of this encounter (statuses as of 11/09/2021) Resolved Problems Problem Noted Date Resolved Date [...] as of this encounter (statuses as of 11/09/2021) Immunizations Name Administration Dates Next Due TDAP [...] Assigned at Date Recorded Not on file documented as of this encounter Plan of Treatment Scheduled Orders Name Type Priority Associated Diagnoses Orde r Schedule MYCODE INITIAL ADULT Lab Routine MyCode Research Other*[id number] Expected: 11/09/2021 (Approximate), Expires: 11/29/2022 Health Maintenance Due Date Last Done Comments COVID-19 Vaccine (1) 01[birth year]21/1965 Cologuard: Ages 45-75 01/21/2005 FOBT: Ages 45-75 01/21/2005 Sigmoidoscopy: Ages 45-75 01/21/2005 Zoster Vaccines (1 of 2) 01/21/2010 BREAST CANCER SCREENING DISCUSSION YEARLY AGES 40-75 08/20/2016 08/21/2015, 08/20/2014, 08/14/2013, Additional history exists Depression Screening, Annual for Pts 12 and Over 12/29/2016 12/30/2015 PAP SMEAR-EVERY 3 YRS,AGES 21-65 08/03/2018 08/04/2015, 07/24/2012 DIABETES SCREEN EVERY 3 YRS-AGE 45 AND ABOVE 11/23/2018 11/24/2015, 11/24/2015, 05/24/2015, Additional history exists DTaP,Tdap,and Td Vaccines (2 - Td or Tdap) 02/19/2020 02/18/2010 LIPID SCREEN EVERY 5 YRS-WOMEN AGE 45-75 05/24/2020 05/24/2015, 11/27/2013, 02/18/2009 Colonoscopy: Ages 45-75 11/24/2020 11/24/2010 Colorectal Cancer Screening (Colonoscopy 10 Years; Sigmoidoscopy 5 Years; Cologuard 3 Years; FOBT 1 Year): Ages 45-75 11/24/2020 Influenza Vaccine (FLU shot) (Season Ended) 2022 GARDASIL-HPV IMMUNIZATION SERIES Aged Out No longer eligible based on patient's age to complete this topic MENINGOCOCCAL (MENACTRA/MENVEO) Aged Out No longer eligible based on patient's age to complete this topic Pneumococcal Vaccine: Pediatrics (0 to 5 Years) and At-Risk Patients (6 to 64 Years) Aged Out No longer eligible based on patient's age to complete this topic documented as of this encounter Implants Not on filedocumented as of this encounter Visit Diagnoses Diagnosis MyCode Research Other*[id number] documented in this encounter Advance Directives Documents on File Type Date Recorded Patient Training Development Manager Expl anation Advanced Directive service a yasmin default Advanced Directive Advanced Directive Advanced Directive Advanced Directive Advanced Directive Advanced Directive Advanced Directive 12/09/2006 12:00 AM serv ice area default
--- OUTSIDE RECORDS SUMMARY | 2023-02-02 12:55 | External Medical Summary | Summary of Care ---
Author Name Unknown Organization [place] [address] Care Team Providers Care Hand Brush Filler Name Role Phone Unavailable Primary Care Provider Unavailabl e Reason for Visit * Reason Comments NEW PATIENT Encounter Details Date Type Department Care Team Description 12/09/2021 Office Visit Ophthalmology, [facility] [address] [place] [address] Maurice Wilder, [address] [place] [address] Choroidal nevus, right*; Type 2 diabetes mellitus with hemoglobin A1c goal of less than 7.0% ([facility]); Mixed type age-related cataract, both eyes Allergies Active Allergy Reactions Severity Noted Date Comments Hydromorphone 12/09/2021 Morphine Hcl 09/29/2010 Per patient-severe migraines documented as of this encounter (statuses as of 01/25/2022) Medications Medication Sig Dispensed Refills Start Date [...] as of this encounter (statuses as of 01/25/2022) Active Problems Problem Noted Date Nevus, choroidal [...] as of this encounter (statuses as of 01/25/2022) Resolved Problems Problem Noted Date Resolved Date [...] as of this encounter (statuses as of 01/25/2022) Immunizations Name Administration Dates Next Due TDAP [...] - 12/09/2021 9:30 AM EDT [facility]LES [facility] [place] Nursing notes reviewed. [...] an exam with aretina specialist since before ANTWAN and Dr. Sexton recommended she re-establish with [...] ideal weight or BMI > 40) ([facility]) 05/19/2015 Plantar fasciitis 11/24/2015 Patient Active Problem List Diagnosis Code ADVANCE DIRECTIVE INFORMATION Impaired fasting glucose R73.01 Esophageal reflux K21.9 Depression with anxiety F41.8 Migraine without aura, not intractable G43.009 Benign paroxysmal vertigo H81.10 Obesity, morbid (more than 100 lbs over ideal weight or BMI > 40) ([facility]) E66.01 Allergic rhinitis due to pollen J30.1 [...] Documents on File Type Date Recorded Patient Systems Trainer Expl anation Advanced Directive service a yasmin default Advanced Directive Advanced Directive Advanced Directive Advanced Directive Advanced Directive Advanced Directive Advanced Directive Advanced Directive 12/09/2006 12:00 AM serv [facility] default
--- OUTSIDE RECORDS SUMMARY | 2023-02-02 12:55 | External Medical Summary | Summary of Care ---
Author Name Unknown Organization [place] [address] Care Team Providers Care Fashion Editor Name Role Phone Unavailable Primary Care Provider Unavailabl e Encounter Details Date Type Department Care Team Description 09/18/2019 Orders Only Outcomes Research Department [address] [place] [address] Enrike Ferris CHRA MyCode Research Other*[id number] Allergies Active Allergy Reactions Severity Noted Date Comments Morphine Hcl 09/29/2010 Per patient-severe migraines documented as of this encounter (statuses as of 09/18/2019) Medications Medication Sig Dispensed Refills Start Date [...] as of this encounter (statuses as of 09/18/2019) Active Problems Problem Noted Date Nevus, choroidal [...] as of this encounter (statuses as of 09/18/2019) Resolved Problems Problem Noted Date Resolved Date [...] as of this encounter (statuses as of 09/18/2019) Immunizations Name Administration Dates Next Due TDAP (age 10 and older)(Boostrix) 02/18/2010 documented as of this encounter Social History Tobacco Use Types Packs/Day Years Used Date Never Smoker Smokeless Tobacco: Never Used Alcohol Use Drinks/Week oz/Week Comments Yes drinks 2 x per month- drinks 2 beer or 2 glasses of wine at a time Sex Assigned at Date Recorded Not on file Job Start Date Occupation Industry Not on file Not on file Not on file Travel History Travel Start Travel End documented as of this encounter Plan of Treatment Scheduled Orders Name Type Priority Associated Diagnoses Orde r Schedule MYCODE INITIAL ADULT Lab Routine MyCode Research Other*[id number] Expected: 09/18/2019 (Approximate), Expires: 10/07/2020 Health Maintenance Due Date Last Done Comments Zoster Vaccines (1 of 2) 01/21/2010 *DEPRESSION SCREENING,ANNUAL FOR PTS 12 AND OVER 07/01/2014 BREAST CANCER SCREENING DISCUSSION YEARLY AGES 40-75 08/20/2016 08/21/2015, 08/20/2014, 08/14/2013, Additional history exists *BASIC METABOLIC PANEL (BMP) FOR HTN YEARLY 11/26/2016 PAP SMEAR-EVERY 3 YRS,AGES 21-65 08/03/2018 08/04/2015, 07/24/2012 DIABETES SCREEN EVERY 3 YRS-AGE 45 AND ABOVE 11/23/2018 11/24/2015, 11/24/2015, 05/24/2015, Additional history exists Influenza Vaccine (FLU shot) (#1) 2019 DTaP,Tdap,and Td Vaccines (2 - Td) 02/19/2020 02/18/2010 LIPID SCREEN EVERY 5 YRS-WOMEN AGE 45-75 05/24/2020 05/24/2015, 11/27/2013, 02/18/2009 MENINGOCOCCAL (MENACTRA/MENVEO) Aged Out No longer eligible based on patient's age to complete this topic Pneumococcal Vaccine: Pediatrics (0 to 5 Years) and At-Risk Patients (6 to 64 Years) Aged Out No longer eligible based on patient's age to complete this topic documented as of this encounter Implants Not on filedocumented as of this encounter Visit Diagnoses Diagnosis MyCode Research Other*[id number] documented in this encounter Advance Directives Documents on File Type Date Recorded Patient Real Estate Photographer Expl anation Advanced Directive service a yasmin default Advanced Directive 12/09/2006 12:00 AM serv ice area default Advanced Directive Advanced Directive Advanced Directive Advanced Directive Advanced Directive Advanced Directive
--- OUTSIDE RECORDS SUMMARY | 2023-02-02 12:55 | External Medical Summary | Summary of Care ---
Author Name Unknown Organization [place] [address] Care Team Providers Care Music Industry Intern Name Role Phone Unavailable Primary Care Provider Unavailabl e Reason for Visit * Reason Onset Date Comments Pre Op Discussion 03/08/2022 PAT call-surge timothy Encounter Details Date Type Department Care Team Description 03/08/2022 Telephone OR [facility], Operating Room [facility] [address] [facility] [place] [id number] Eder Alberts MD [facility] [address] [address] Pre Op Discussion (PAT call-surgeries ) Allergies Active Allergy Reactions Severity Noted Date Comments Hydromorphone 12/09/2021 Morphine Hcl 09/29/2010 Per patient-severe migraines documented as of this encounter (statuses as of 03/08/2022) Medications Medication Sig Dispensed Refills Start Date [...] MG Oral Tablet (Fosamax) 0 12/07/2021 Active documented as of this encounter (statuses as of 03/08/2022) Active Problems Problem Noted Date Nevus, choroidal [...] as of this encounter (statuses as of 03/08/2022) Resolved Problems Problem Noted Date Resolved Date [...] as of this encounter (statuses as of 03/08/2022) Immunizations Name Administration Dates Next Due TDAP [...] as of this encounter Plan of Treatment Upcoming Encounters Date Type Specialty Care Team Description 03/11/2022 Hospital Encounter Surgery Eder Alberts MD [address] [place] [address] 03/11/2022 Surgery Surgery Eder Alberts MD [address] [place] [address] LEFT EXTRACAPSULAR CATARACT REMOVAL WITH INTRAOCULAR LENS 03/25/2022 Hospital Encounter Surgery Eder Alberts MD [address] [place] [address] 03/25/2022 Surgery Surgery Eder Alberts MD [address] [place], [place] [address] right EXTRACAPSULAR CATARACT REMOVAL WITH INTRAOCULAR LENS Scheduled Procedures Name Priority Associated Diagnoses Date/Ti me EXTRACAPSULAR CATARACT REMOVAL WITH INTRAOCULAR LENS Combined forms of age-related cataract of left eye 03/11/2022 7:45 AM EDT EXTRACAPSULAR CATARACT REMOVAL WITH INTRAOCULAR [...] Not on filedocumented as of this encounter Advance Directives Documents on File Type Date Recorded Patient Engineering Design Supervisor Expl anation Advanced Directive service a yasmin default Advanced Directive Advanced Directive Advanced Directive Advanced Directive Advanced Directive Advanced Directive Advanced Directive Advanced Directive Advanced Directive Advanced Directive 12/09/2006 12:00 AM serv ice area default
--- OUTSIDE RECORDS SUMMARY | 2023-02-02 12:55 | External Medical Summary | Summary of Care ---
Author Name Unknown Organization [place] [address] Care Team Providers Care Golf Course Ranger Name Role Phone Unavailable Primary Care Provider Unavailabl e Encounter Details Date Type Department Care Team Description 10/13/2020 Orders Only Outcomes Research Department [address] [place] [address] Enrike Ferris CHRA MyCode Research Other*[id number] Allergies Active Allergy Reactions Severity Noted Date Comments Morphine Hcl 09/29/2010 Per patient-severe migraines documented as of this encounter (statuses as of 10/13/2020) Medications Medication Sig Dispensed Refills Start Date [...] as of this encounter (statuses as of 10/13/2020) Active Problems Problem Noted Date Nevus, choroidal [...] as of this encounter (statuses as of 10/13/2020) Resolved Problems Problem Noted Date Resolved Date [...] as of this encounter (statuses as of 10/13/2020) Immunizations Name Administration Dates Next Due TDAP [...] MYCODE INITIAL ADULT Lab Routine MyCode Research Other*[id number] Expected: 10/13/2020 (Approximate), Expires: 11/02/2021 Health Maintenance Due Date Last Done Comments [...] history exists DTaP,Tdap,and Td Vaccines (2 - Td) 02/19/2020 02/18/2010 LIPID SCREEN EVERY 5 YRS-WOMEN AGE 45-75 05/24/2020 05/24/2015, 11/27/2013, 02/18/2009 Influenza Vaccine (FLU shot) (Season Ended) 2021 MENINGOCOCCAL (MENACTRA/MENVEO) Aged Out No longer eligible based on patient's age to complete this topic Pneumococcal Vaccine: Pediatrics (0 to 5 Years) and At-Risk Patients (6 to 64 Years) Aged Out No longer eligible based on patient's age to complete this topic documented as of this encounter Implants Not on filedocumented as of this encounter Visit Diagnoses Diagnosis MyCode Research Other*[id number] documented in this encounter Advance Directives Documents on File Type Date Recorded Patient Disaster Recovery Analyst Expl anation Advanced Directive service a yasmin default Advanced Directive 12/09/2006 12:00 AM serv ice area default Advanced Directive Advanced Directive Advanced Directive Advanced Directive Advanced Directive Advanced Directive
--- OUTSIDE RECORDS SUMMARY | 2023-02-02 12:55 | External Medical Summary | Summary of Care ---
Author Name Unknown Organization [place] [address] Care Team Providers Care Copy Camera Operator Name Role Phone Unavailable Primary Care Provider Unavailabl e Reason for Visit * Reason Comments NEW PATIENT Encounter Details Date Type Department Care Team Description 12/09/2021 Office Visit Ophthalmology, [facility] [address] [place] [address] Maurice Wilder, [address] [place] [address] Choroidal nevus, right*; Type 2 diabetes mellitus with hemoglobin A1c goal of less than 7.0% ([facility]); Mixed type age-related cataract, both eyes Allergies Active Allergy Reactions Severity Noted Date Comments Hydromorphone 12/09/2021 Morphine Hcl 09/29/2010 Per patient-severe migraines documented as of this encounter (statuses as of 12/09/2021) Medications Medication Sig Dispensed Refills Start Date [...] as of this encounter (statuses as of 12/09/2021) Active Problems Problem Noted Date Nevus, choroidal [...] as of this encounter (statuses as of 12/09/2021) Resolved Problems Problem Noted Date Resolved Date [...] as of this encounter (statuses as of 12/09/2021) Immunizations Name Administration Dates Next Due TDAP [...] - 12/09/2021 9:30 AM EDT [facility]LES SN[facility]ER [facility] [place] Nursing notes reviewed. [...] over ideal weight or BMI > 40) ([facility]) 05/19/2015 Plantar fasciitis 11/24/2015 Patient Active Problem List Diagnosis Code ADVANCE DIRECTIVE INFORMATION Impaired fasting glucose R73.01 Esophageal reflux K21.9 Depression with anxiety F41.8 Migraine without aura, not intractable G43.009 Benign paroxysmal vertigo H81.10 Obesity, morbid (more than 100 lbs over ideal weight or BMI > 40) ([facility]) E66.01 Allergic rhinitis due to pollen J30.1 Plantar fasciitis M72.2 Nevus, choroidal D31.30 History obtained from: Patient ROS: 1. Constitutional : No weight loss, feeling tired, fever. 2. HENT: No hearing loss, headache. 3. Cardio: No SC, CHF, Aneurysm. 4. Pulm: No asthma, COPD, [...] Last Done Comments COVID-19 Vaccine (#1) 1960 Cologuard: Ages 45-75 01/21/2005 FOBT: Ages 45-75 [...] Documents on File Type Date Recorded Patient Senior Project Engineer Expl anation Advanced Directive service a yasmin default Advanced Directive Advanced Directive Advanced Directive Advanced Directive Advanced Directive Advanced Directive Advanced Directive Advanced Directive 12/09/2006 12:00 AM serv [facility] default
--- OUTSIDE RECORDS SUMMARY | 2023-02-02 12:55 | External Medical Summary | Summary of Care ---
Author Name Unknown Organization [place] [address] Phone Care Team Providers Care Fertilizer Mixer Name Role Phone Unavailable Primary Care Provider Unavailabl e Encounter Details Date Type Department Care Team Description 02/10/2018 Orders Only Outcomes Research Department [address] [place] [address] Kervin Mercado CHRA MyCode Research Other*[id number] Allergies Active Allergy Reactions Severity Noted Date Comments Morphine Hcl 09/29/2010 Per patient-severe migraines as of this encounter Medications Prescription Sig. Disp. Refills Start Date End Date Status MAGNESIUM 500 MG PO TABS one daily 0 02/12/2009 Active VITAMIN D 1000 UNIT PO CAPS 2 capsule daily 30 11 02/12/2009 Active LORAzepam (ATIVAN) 0.5 MG TabletIndications:Anxie ty state Take 1 Tab by mouth 3 times a day as needed for Anxiety. 30 Tab 0 09/24/2014 Active meclizine (ANTIVERT) 25 MG TabletIndications:Verti go Take 1 Tab by mouth 3 times a day as needed for Dizziness. 30 Tab 1 04/03/2015 Active RELPAX 40 MG Tablet Take 40 mg by mouth as needed. 04/28/2015 Active pantoprazole (PROTONIX) 40 MG TBECIndications:Esophag eal reflux Take 1 Tab by mouth daily. 90 Tab 1 12/16/2015 Active lisinopril (PRINIVIL) 10 MG Tablet Take 1 Tab by mouth daily. 05/03/2016 Active venlafaxine XR (EFFEXOR XR) 75 MG CP24 Take 1 Cap by mouth daily. 05/05/2016 Active as of this encounter Active Problems Problem Noted Date Nevus, choroidal 05/08/2016 Allergic rhinitis due to pollen 11/24/19 16 Plantar fasciitis 11/24/2015 Depression with anxiety 05/19/2015 Migraine without aura, not intractable 1 07/20/2014 Benign paroxysmal vertigo 05/19/2015 Obesity, morbid (more than 100 lbs over ideal weight or BMI > 40) ([facility]) 05/19/2015 Impaired fasting glucose 02/12/2009 Esophageal reflux 02/12/2009 ADVANCE DIRECTIVE INFORMATION 01/18/2007 Overview: Yes, Patient instructed to provide copy of advance directive for provider to review and to be scanned into Electronic Medical Record as of this encounter Resolved Problems Problem Noted Date Resolved Date Nevus, choroidal 09/29/2010 05/19/2015 Obesity, Class II, BMI 35-39.9, isolated (see ac tual BMI) 11/17/2009 05/19/2015 Overview: Per Obesity Protocol, #19 Retinal edema 09/25/2009 05/19/2015 Major depressive disorder 02/12/20092014 Overview: ICD-10 update of inactive term Migraine without aura, intractable 02/12/2009 05/19/2015 Insomnia 02/12/2009 05/19/2015 Overview: ICD-10 update of inactive term Hypertrophy of breast 12/28/2006 02/12/2009 as of this encounter Immunizations Name Dates Previously Given Next Due TDAP (age 10 and older)(Boostrix) 02/18/2010 as of this encounter Social History Tobacco Use Types Packs/Day Years Used Date Never Smoker Smokeless Tobacco: Never Used Alcohol Use Drinks/Week oz/Week Comments Yes drinks 2 x per month- drinks 2 beer or 2 glasses of wine at a time Sex Assigned at Date Recorded Not on file as of this encounter Plan of Treatment Scheduled Tests Name Priority Associated Diagnoses Order S chedule MYCODE INITIAL ADULT Routine MyCode Research Other*[id number] Expected: 02/10/2018, Expires: 03/02/2019 Health Maintenance Due Date Last Done Comments *DEPRESSION SCREENINGDANIELLE FOR PTS 18 AND OVER 07/01/2014 BREAST CANCER SCREENING DISCUSSION YEARLY AGES 40-75 08/20/2016 08/21/2015, 08/20/2014, 08/14/2013, Additional history exists *BASIC METABOLIC PANEL (BMP) FOR HTN YEARLY 11/26/2016 Influenza Vaccine (FLU shot) (#1) 2018 PAP SMEAR-EVERY 3 YRS,AGES 21-65 08/03/2018 08/04/19 16, 07/24/2012 DIABETES SCREEN EVERY 3 YRS- AGE 45 AND ABOVE 11/23/2018 11/24/2015, 11/24/2015, 05/24/2015, Additional history exists DTaP,Tdap,and Td Vaccines (2 - Td) 02/19/2020 02/18/2010 LIPID SCREEN EVERY 5 YRS-WOM EN AGE 45-75 05/24/2020 05/24/2015, 11/27/2013, 02/18/2009 as of this encounter Implants Not on fileas of this encounter Visit Diagnoses Diagnosis MYCODE RESEARCH OTHER*[id number] in this encounter
--- OUTSIDE RECORDS SUMMARY | 2023-02-02 12:55 | External Medical Summary | Summary of Care ---
Author Name Unknown Organization [facility] Address [place] [address] Care Team Providers Care Planning And Analysis Manager Name Role Phone Unavailable Primary Care Provider Unavailabl e Reason for Visit * Reason Comments Follow Up Encounter Details Date Type Department Care Team Description 04/26/2018 Office Visit Ophthalmology, [facility] [address] [facility] [place] [address] Maurice Wilder DO [address] [facility] [place] [address] [phone] Nevus of choroid of right eye* Allergies Active Allergy Reactions Severity Noted Date Comments Morphine Hcl 09/29/2010 Per patient-severe migraines as of this encounter Medications Medication Sig Dispensed Refills Start Date [...] Cap by mouth daily. 0 05/05/2016 Active as of this encounter Active [...] file Travel History Travel Start Travel End as of this encounter Progress Notes * Maurice Wilder, - 04/26/2018 7:45 AM EST MYLES SNID[facility] [place] Nursing notes reviewed. Mood and Affect: normal HPI: Rabia Patel is a 58 year old female who presents for choroidal nevus check No other eye complaints. Denies significant pain. Consultation requested by: Dr. Sexton Base Eye Exam Visual Acuity (Snellen - Linear) Right Left Dist cc 20/25-1 20/20 Correction: Glasses Tonometry (Tonopen, 7:54 AM) Right Left Pressure 26 16 Tonometry #2 (Tonopen, 7:54 AM) Right Left Pressure 26 Tonometry #3 (Tonopen, 7:54 AM) Right Left Pressure 22 Pupils Pupils APD Right PERRL None Left PERRL None Visual Hess (Counting fingers) Right Left Full Full Extraocular Movement Right Left Full Full EXTERNAL: The ocular adnexae are unremarkable. SLE: Lids/Lashes: wnl OU Conjunctiva/Sclera: quiet OU Cornea: clear OU Anterior Chamber: deep and quiet OU Iris: normal OU; no NVI OU Lens: trace-1+ NSC OU Dilated fundus exam OD: vitreous: clear optic nerve: 0.3, no edema/pallor/NVD macula: +3x3DD flat amelanotic lesion, no orange pigment/srf vessels: +av nicking midperiphery: wnl periphery: no RT/RD Dilated [...] -photos 09/25/09, 09/14, 05/20 -no change 2. H/o Resolved Retinal heme OD -CBC w/ diff unremarkable, FBS showed pre-diabetes 3. Trace NSC OU -not visually significant CC: Dr. Sexton f/u w/ ri 2 years nevus check, repeat fundus photos F/u w/ Dr. Sexton routine Maurice Wilder, in this encounter Nursing Notes * Chana Mcgrath, [facility] - 04/26/2018 7:54 AM JELLY Patel is a 58 year old female who presents for follow up amelanotic nevus OD. Referred by: Self Patient's name preference, 'Rabia'. [email or web address] User Status: Active Have you addressed [facility] with the patient? Yes Last visit: 05/07/2016 She currently c/o that vision is a little worse. Are you diabetic? No Are you being treated for macular degeneration? NO. Phenylephrine Hydrochloride 2.5% and Tropicamide Ophthalmic Solution 1% inserted into Both eyes 7:[address]? yes Patient advised not to drive while eye's are dilated or vision is blurred. Pt/Family verbalizes understanding. Date of last OCT OU: 05/07/2016 OCT image(s) of both eyes acquired and filed/scanned into chart. in this encounter Plan of Treatment Health Maintenance Due Date Last Done Comments *DEPRESSION SCREENING, DANIELLE Summers FOR PTS 18 AND OVER 07/01/2014 BREAST [...] fileas of this encounter Visit Diagnoses Diagnosis Nevus of choroid of right eye- Primary in this encounter Advance Directives Patient has advance care planning documents on file. For more information, please contact: [place] [phone]
--- OUTSIDE RECORDS SUMMARY | 2023-02-02 12:55 | External Medical Summary | Summary of Care ---
Author Name Unknown Organization [place] [address] Care Team Providers Care Emergency Response Coordinator Name Role Phone Unavailable Primary Care Provider Unavailabl e Reason for Visit * Reason Comments NEW PATIENT Encounter Details Date Type Department Care Team Description 12/09/2021 Office Visit Ophthalmology, [facility] [address] [place] [address] Maurice Wilder, [address] [place] [address] Choroidal nevus, right*; Type 2 diabetes mellitus with hemoglobin A1c goal of less than 7.0% ([facility]); Mixed type age-related cataract, both eyes [...] - 12/09/2021 9:30 AM EDT MYLES SNIDER [facility] [place] Nursing notes reviewed. [...] ideal weight or BMI > 40) ([facility]) 05/19/2015 Plantar fasciitis 11/24/2015 Patient Active Problem List Diagnosis Code ADVANCE DIRECTIVE INFORMATION Impaired fasting glucose R73.01 Esophageal reflux K21.9 Depression with anxiety F41.8 Migraine without aura, not intractable G43.009 Benign paroxysmal vertigo H81.10 Obesity, morbid (more than 100 lbs over ideal weight or BMI > 40) ([facility]) E66.01 Allergic rhinitis due to pollen J30.1 Plantar fasciitis M72.2 Nevus, choroidal D31.30 History obtained from: Patient ROS: 1. Constitutional : No weight loss, feeling tired, fever. 2. HENT: No hearing loss, headache. 3. Cardio: No RI, CHF, Aneurysm. 4. Pulm: No asthma, COPD, [...] Documents on File Type Date Recorded Patient Clinical Rn Manager Expl anation Advanced Directive service a yasmin default Advanced Directive Advanced Directive Advanced Directive Advanced Directive Advanced Directive Advanced Directive Advanced Directive Advanced Directive 12/09/2006 12:00 AM [facility] default
--- OUTSIDE RECORDS SUMMARY | 2023-02-02 12:56 | External Medical Summary ---
Author Name Unknown Organization K08:[facility] [address] [place] [address] Laboratory Report Ordering Provider Test Date Status JAIME CHAN MCNULTY 11/27/2013 14:10:00-0400 Pamela l Obs # Observation Date Value ABNL Reference Status Pe rforming Location 1 hours fasting 11/27/2013 14:14-0400 12 hours Final 2 Triglyceride 11/27/2013 22:20-0400 122 <200 mg/dL Final TRIGLYCERIDE REFERENCE RANGES (mg/dL) <150 NORMAL 150-199 BORDERLINE HIGH 200-499 HIGH >499 VERY HIGH TOTAL CHOLESTEROL REFERENCE RANGES(mg/dL) <200 DESIRABLE 200-239 BORDERLINE HIGH >239 HIGH HDL CHOLESTEROL REFERENCE RANGES(mg/dL) <40 LOW(UNDESIRABLE) >59 HIGH(DESIRABLE) LDL CHOLESTEROL REFERENCE RANGES(mg/dL) <100 OPTIMAL GOAL FOR HIGH RISK PATIENTS 100-129 NEAR OR ABOVE NORMAL 130-159 BORDERLINE HIGH 160-189 HIGH >189 VERY HIGH
--- OUTSIDE RECORDS SUMMARY | 2023-02-02 12:56 | External Medical Summary ---
Author Name BERNARDO PHAM Organization K01:[facility], [address] [address] Support Name Relationship Address Phone BERNARDO PHAMSANDRA PROV Unknown Unavailabl e Laboratory Report Ordering Provider Test Date Status SANDRA BERNARDO PHAM 05/01/2012 14:40:00-0500 Final Obs # Observation Date Value ABNL Reference Status Pe rforming Location 1 specimen 05/01/2012 14:40-0500 CLEAN CATCH URINE Final 2 result 05/02/2012 13:51-0500 LESS THAN 10,000 COLONIES/ML MIXED DAVID Final 3 report status 05/02/2012 13:51-0500 05/02/2012 FINAL Final
--- OUTSIDE RECORDS SUMMARY | 2023-02-02 12:56 | External Medical Summary ---
Author Name Unknown Address [address] [place] [address] [place] [address] Phone Organization K08:[address] [place] [address] Laboratory Report Ordering Provider Test Date Status JOSIE SANDOVALBRYANNARADHA PAC [id number] Final Obs # Observation Date Value Abnormality Reference Status [facility] Location 0 specimen [id number] VAGINAL Final [address] [place] [address] 1 Wet Prep / YRN [id number] MANY EPITHELIAL CELLS PRESENT Final [address] [place] [address] 2 Wet Prep / YRN [id number] FEW POLYMORPHONUCLE AR LEUKOCYTES SEEN Final [address] [place] [address] 3 Wet Prep / YRN [id number] FEW BACTERIA SEEN Final [address] [place] [address] 4 Wet Prep / YRN [id number] NO TRICHOMONAS VAGINALIS DETECTED. Final [address] [place] [address] 5 report status [id number] 06/05/2015 FINAL Final [address] [place] [address]
--- OUTSIDE RECORDS SUMMARY | 2023-02-02 12:56 | External Medical Summary ---
Author Name SEAN VALDEZ MD Organization K08:[address] [place] [address] Support Name Relationship Address Phone MIGUEL ESTRADA III, MD PROV Unknown Unavailabl e Laboratory Report Ordering Provider Test Date Status MIGUEL ESTRADA III, MD 05/15/2012 07:40:00-0500 Final Obs # Observation Date Value ABNL Reference Status Pe rforming Location 1 ESR 05/15/2012 09:25-0500 15 0-20 mm/hour Final
--- OUTSIDE RECORDS SUMMARY | 2023-02-02 12:56 | External Medical Summary ---
Author Name Unknown Organization K08:[facility] [address] [place] [address] Laboratory Report Ordering Provider Test Date Status SHEILA GUERRA DO 04/05/2014 07:38:00-0400 F inal Obs # Observation Date Value ABNL Reference Status Pe rforming Location 1 Glucose, fasting 04/05/2014 09:38-0400 112 H 70-99 mg/dL Final Based on guidlines from [place] <100 mg/dL normal 100-125 mg/dL pre-diabetes >125 mg/dL diabetes, confirm by repeat testing on a different day
--- OUTSIDE RECORDS SUMMARY | 2023-02-02 12:56 | External Medical Summary ---
Author Name SEAN VALDEZ MD Organization K01:[facility] [address] [address] Support Name Relationship Address Phone MIGUEL ESTRADA III, MD PROV Unknown Unavailabl e Laboratory Report Ordering Provider Test Date Status MIGUEL ESTRADA III, MD 05/15/2012 07:40:00-0500 Final Obs # Observation Date Value ABNL Reference Status Pe rforming Location 1 Vitamin B12 05/15/2012 15:09-0500 294 211-946 pg/mL Final
--- OUTSIDE RECORDS SUMMARY | 2023-02-02 12:56 | External Medical Summary ---
Author Name Unknown Address [address] [id number] Phone Organization K01:[facility] [address] [id number] Laboratory Report Ordering Provider Test Date Status TRACE GRAFF MD [id number] Final Obs # Observation Date Value Abnormality Reference Status Performing Location 0 TSH [id number] 3.49 0.27-4.2 Final [facility] [address] [facility] [address] 1 FREE T4 REFLEXIVE [id number] NOT APPLICABLE 0.9-1.7 Final [facility] [address] [facility] [address]
--- OUTSIDE RECORDS SUMMARY | 2023-02-02 12:56 | External Medical Summary ---
Author Name Unknown Address [address] [id number] Phone Organization K01:[facility] [address] [facility] [address] Laboratory Report Ordering Provider Test Date Status TRACE GRAFF MD 11/24/2015 08:35:00 Final Obs # Observation Date Value Abnormality Reference Status Performing Location 0 BUN 11/24/2015 14:44 11 6-20 Final [facility] [address] [facility] [address] 1 Creatinine 11/24/2015 14:44 0.8 0.5-1.0 Final
--- OUTSIDE RECORDS SUMMARY | 2023-02-02 12:56 | External Medical Summary ---
Author Name Unknown Organization K08:[facility] [address] [place] [address] Laboratory Report Ordering Provider Test Date Status JAIME MCNULTY 11/27/2013 14:10:00-0400 Pamela garcia Obs # Observation Date Value ABNL Reference Status Pe rforming Location 1 Glucose 11/27/2013 15:09-0400 84 70-120 mg/dL Final
--- OUTSIDE RECORDS SUMMARY | 2023-02-02 12:56 | External Medical Summary ---
Author Name Unknown Organization K08:[facility] [address] [place] [address] Laboratory Report Ordering Provider Test Date Status SHEILA GUERRA DO 04/05/2014 07:38:00-0400 F inal Obs # Observation Date Value ABNL Reference Status Pe rforming Location 1 WBC 04/05/2014 08:51-0400 5.71 4.00-10.80 K/uL Final 2 RBC 04/05/2014 08:51-0400 4.53 3.85-5.15 M/uL Final 3 HGB 04/05/2014 08:51-0400 12.2 12.0-15.3 g/dL Final 4 HCT 04/05/2014 08:51-0400 38.3 36.0-45.2 % Final 5 MCV 04/05/2014 08:51-0400 84.5 81.5-97.5 fL Final 6 MCH 04/05/2014 08:51-0400 26.9 L 27.0-34.0 pg Final 7 MCHC 04/05/2014 08:51-0400 31.9 L 32.0-36.0 g/dL Final 8 RDW 04/05/2014 08:51-0400 14.7 11.5-15.5 % Final 9 PLT 04/05/2014 08:51-0400 249 140-400 K/uL Final 10 MPV 04/05/2014 08:51-0400 10.7 6.6-11.1 fL Final 11 Segs 04/05/2014 08:51-0400 55 40-75 % Final 12 Lymphocytes 04/05/2014 08:51-0400 35 18-42 % Final 13 Monos 04/05/2014 08:51-0400 7 1-11 % Final 14 Eosinophils 04/05/2014 08:51-0400 3 0-6 % Final 15 Basos 04/05/2014 08:51-0400 0 0-2 % Final 16 Segmented Neutrophils, Abs 04/05/2014 08:51-0400 3.16 1.8-7.7 K/uL Final 17 Lymphs, Abs 04/05/2014 08:51-0400 1.98 1.0-4.8 K/uL Final 18 Monos, Abs 04/05/2014 08:51-0400 0.39 0.0-1.1 K/uL Final 19 Eos, Abs 04/05/2014 08:51-0400 0.16 0.0-0.7 K/uL Final 20 Basos, Abs 04/05/2014 08:51-0400 0.02 0.0-0.2 K/uL Final
--- OUTSIDE RECORDS SUMMARY | 2023-02-02 12:56 | External Medical Summary ---
Author Name Unknown Address [address] [phone] Phone Organization K01:[facility] [address] [facility] [address] Laboratory Report Ordering Provider Test Date Status TRACE GRAFF MD 11/24/2015 08:35:00 Final Obs # Observation Date Value Abnormality Reference Status Performing Location 0 HbA1C 11/24/2015 14:44 5.4 4.0-6.4 Final [facility] [address] [facility] [address]
--- OUTSIDE RECORDS SUMMARY | 2023-02-02 12:56 | External Medical Summary ---
Author Name SEAN VALDEZ MD Organization K08:[address] [place] [address] Support Name Relationship Address Phone SEAN VALDEZ MD, MIGUEL PROV Unknown Unavailabl e Laboratory Report Ordering Provider Test Date Status IMGUEL ESTRADA III, MD 05/15/2012 07:40:00-0500 Final Obs # Observation Date Value ABNL Reference Status Pe rforming Location 1 WBC 05/15/2012 08:35-0500 6.23 4.00-10.80 K/uL Final 2 RBC 05/15/2012 08:35-0500 4.68 3.85-5.15 M/uL Final 3 HGB 05/15/2012 08:35-0500 12.6 12.0-14.5 g/dL Final 4 HCT 05/15/2012 08:35-0500 38.2 36.0-44.5 % Final 5 MCV 05/15/2012 08:35-0500 81.6 81.5-97.5 fL Final 6 MCH 05/15/2012 08:35-0500 26.9 L 27.0-34.0 pg Final 7 MCHC 05/15/2012 08:35-0500 33.0 32.0-36.0 g/dL Final 8 RDW 05/15/2012 08:35-0500 14.2 11.5-15.5 % Final 9 PLT 05/15/2012 08:35-0500 260 140-400 K/uL Final 10 MPV 05/15/2012 08:35-0500 9.8 6.6-11.1 fL Final 11 diff type 05/15/2012 08:35-0500 AUTO Final 12 Segs 05/15/2012 08:37-0500 57 40-75 % Final 13 Lymphocytes 05/15/2012 08:37-0500 35 18-42 % Final 14 Monos 05/15/2012 08:37-0500 6 1-11 % Final 15 Eosinophils 05/15/2012 08:37-0500 2 0-6 % Final 16 Segmented Neutrophils, Abs 05/15/2012 08:37-0500 3.56 1.8-7.7 K/uL Final 17 Lymphs, Abs 05/15/2012 08:37-0500 2.18 1.0-4.8 K/uL Final 18 Monos, Abs 05/15/2012 08:37-0500 0.37 0.0-1.1 K/uL Final 19 Eos, Abs 05/15/2012 08:37-0500 0.12 0.0-0.7 K/uL Final
--- OUTSIDE RECORDS SUMMARY | 2023-02-02 12:56 | External Medical Summary ---
Author Name SEAN VALDEZ MD Organization K01:[facility], [address] [address] Support Name Relationship Address Phone MIGUEL ESTRADA III, MD PROV Unknown Unavailabl e Laboratory Report Ordering Provider Test Date Status MIGUEL ESTRADA III, MD 05/15/2012 07:40:00-0500 Final Obs # Observation Date Value ABNL Reference Status Pe rforming Location 1 TSH 05/15/2012 15:09-0500 3.92 0.27-4.2 uIU/mL Final
--- OUTSIDE RECORDS SUMMARY | 2023-02-02 12:56 | External Medical Summary ---
Author Name Unknown Address [address] [phone] Phone Organization K01:[facility] [address] [phone] Laboratory Report Ordering Provider Test Date Status TRACE GRAFF MD [id number] Final Obs # Observation Date Value Abnormality Reference Status Performing Location 0 BUN [id number] 12 6-20 Final [facility] [address] [facility] [address] 1 Creatinine [id number] 0.8 0.5-1.0 [facility] [address] [facility] [address]
--- OUTSIDE RECORDS SUMMARY | 2023-02-02 12:56 | External Medical Summary ---
Author Name SEAN VALDEZ MD Organization K08:[facility] [address] [place] [address] Support Name Relationship Address Phone MIGUEL ESTRADA III, MD PROV Unknown Unavailabl e Laboratory Report Ordering Provider Test Date Status MIGUEL ESTRADA III, MD 05/15/2012 07:40:00-0500 Final Obs # Observation Date Value ABNL Reference Status Pe rforming Location 1 BUN 05/15/2012 09:28-0500 10 6-20 mg/dL Final 2 Creatinine 05/15/2012 09:28-0500 0.8 0.5-1.1 mg/dL Final GFR should be used to assess renal function. Plasma/Serum creatinine may not be able to properly reflect renal function in some cases.
--- OUTSIDE RECORDS SUMMARY | 2023-02-02 12:56 | External Medical Summary ---
Author Name Unknown Address [address] [phone] Phone Organization K01:[facility] [address] [id number] Laboratory Report Ordering Provider Test Date Status TRACE GRAFF MD [id number] Final Obs # Observation Date Value Abnormality Reference Status Performing Location 0 HbA1C [id number] 5.9 4.0-6.4 Final [facility] [address] [facility] [address]
--- OUTSIDE RECORDS SUMMARY | 2023-02-02 12:56 | External Medical Summary ---
Author Name Unknown Address [address] [place] [address] [place] [address] Phone Organization K08:[address] [place] [address] Laboratory Report Ordering Provider Test Date Status TRACE GRAFF MD [id number] Final Obs # Observation Date Value Abnormality Reference Status Performing Location 0 hours fasting [id number] [address] [place] [address] 1 Triglyceride [id number] 78 <[address] [place] [address]
--- OUTSIDE RECORDS SUMMARY | 2023-02-02 12:56 | External Medical Summary ---
Author Name SEAN VALDEZ MD Organization K01:[employer] [facility], [address] [address] Support Name Relationship Address Phone SEAN VALDEZ MD, MIGUEL PROV Unknown Unavailabl e Laboratory Report Ordering Provider Test Date Status MIGUEL ESTRADA III, MD 05/15/2012 07:40:00-0500 Final Obs # Observation Date Value ABNL Reference Status Pe rforming Location 1 LYME G/M AB 2 11:08-050 0 NEGATIVE NEG Final 2 B. burgdorferi IgG / IgM Index (Lyme Dz) 2 11:08-050 0 0.09 <0.91 INDEX Final 3 LYME G/M COMMENT 2 11:08-050 0 Lyme screen negative,per CDC guidelines Western blot testing not performed. Final
[2023-02-02] MEDS ORDERED: SINCALIDE 2 MCG in 0.9 % SODIUM CHLORIDE 100 ML IV ONE (13:15)
--- NOTE | 2023-02-02 17:03 | Nuclear Medicine Report ---
NM hepatobiliary EF CLINICAL HISTORY: RUQ pain, elevated AST, Lipase COMPARISON STUDY: CT of the abdomen and pelvis February 02, 2023. TECHNIQUE: 5.5 mCi of technetium 99m Choletec was injected IV at 12:49 PM on February 02, 2023. Imaging of the abdomen was performed in the anterior projection at 60 minutes. No gallbladder activity was i dentified and therefore imaging was carried out for an additional 3 hours. FINDINGS: Hepatic uptake of radiotracer is prompt and homogeneous. No activity within the gallbladder was noted at 60 minutes. Imaging was carried out for additional 3 hours and no gallbladder activity is identified. This suggests cystic duct obstruction. IMPRESSION: No radiotracer within the gallbladder at 4 hours. This suggests cystic duct obstruction a nd favors acute cholecystitis. ACT 112: Negative or not required by law. Electronically signed by: Marvin Souza M.D. 02/02/2023 5:01 PM
[2023-02-02] MEDS: metroNIDAZOLE 500 MG/100 ML BAG IV SCH (19:52)
[2023-02-02] MEDS: ACETAMINOPHEN 1,000 MG/100 ML VIAL IV PRN (20:55)
[2023-02-03] MEDS: metroNIDAZOLE 500 MG/100 ML BAG IV SCH (03:02)
[2023-02-03 06:25] LABS: Basophils # (auto) 0.01 K/uL (0.00-0.20); Basophils % (auto) 0.3 %; Eosinophils # (auto) 0.03 K/uL (0.00-0.50); Eosinophils % (auto) 0.8 %; Hematocrit (blood only) 30.6 % (37.0-47.0); Hemoglobin 9.7 g/dl (12.0-16.0); Immature Granulocytes # (auto) 0.01 K/uL (0.01-0.20); Immature Granulocytes % (auto) 0.3 %; Lymphocytes # (auto) 1.31 K/uL (1.20-3.40); Lymphocytes % (auto) 35.2 %; Mean Corpuscular Hemoglobin 27.2 pg (25.0-34.0); Mean Corpuscular Hgb Conc 31.7 g/dL (32.0-36.0); Monocytes # (auto) 0.42 K/uL (0.11-0.59); Monocytes % (auto) 11.3 %; Neutrophils # (auto) 1.94 K/uL (1.40-6.50); Neutrophils % (auto) 52.1 %; Platelet Count 118 K/uL (130-400); RDW Coefficient of Variation 14.6 % (11.5-14.5); RDW Standard Deviation 46.6 fL (36.4-46.3); Red Blood Count 3.56 M/uL (4.20-5.40); White Blood Count 3.72 K/ul (4.8-10.8)
[2023-02-03 06:49] LABS: Albumin Globulin Ratio 1.4 (0.9-2); Albumin Level 3.3 gm/dl (3.4-5.0); BUN Creatinine Ratio 11.9 (10-20); Bilirubin,Total 0.6 mg/dl (0.2-1.0); Calcium 7.7 mg/dl (8.6-10.3); Creatinine Clr Calc Pharmacy 95.4 ml/min; Est GFR (African American) 108.4 ml/min; Est GFR (Non-African American) 93.5 ml/min; Globulin 2.4 gm/dl (2.5-4.0); Potassium 3.8 mmol/L (3.5-5.1); Total Protein 5.7 gm/dl (6.0-8.3)
[2023-02-03 07:11] LABS: Estimated Average Glucose 120 mg/dl; Hemoglobin A1C 5.8 % (4.5-5.6)
[2023-02-03] MEDS: NSS + 20MEQ KCL 20 MEQ/1,000 ML BAG IV SCH ×2 (07:27→20:06)
[2023-02-03] MEDS: ACETAMINOPHEN 1,000 MG/100 ML VIAL IV PRN ×3 (07:35→23:06)
--- NOTE | 2023-02-03 07:47 | Hospitalist Progress Note ---
Date of Service February 03, 2023 Assessment & Plan (1) Cholecystitis: Plan: With fevers and abdominal pain on admission, since improve on IV Abx Hgb 9.7, suspect dilutional, no evidence of bleeding No leukocytosis, LFTs improving CTAP without clear acute pathology, mild fatty liver HIDA scan with evidence of cystic duct obstruction and likely acute cholecystitis, abdominal US also with evidence of acute cholecystitis, as well as 1cm CBD dilation General Surgery and GI consulted to see patient today for recommendations regarding her imaging findings Continue Zosyn for gram negative/anaerobic coverage (2) DM2 (diabetes mellitus, type 2): Plan: NPO for now in the event of procedure SSI ordered, adjust as needed with BSGs and when able to have PO (3) Hypertension: Plan: Holding lisinopril at this time, BP normotensive (4) Severe sleep apnea: Plan: CPAP HS (5) Esophageal reflux: Plan: Continue PPI IV Admission and Anticipated Discharge Date Admission Date: February 02, 2023 Subjective No acute overnight events, denies abdominal pain right now, no CP/SOB/nausea. Physical Exam Constitutional: WD/WN, vitals as above Respiratory: normal respiratory effort, lungs clear to auscultation Cardiovascular: RRR, no murmur, no edema Gastrointestinal (Abdomen): normal bowel sounds, abdomen soft, RUQ tender Skin: no rashes, warm and dry Psychiatric: A+Ox3, euthymic affect Results & Data Results & Data Vital Signs (Past 12 Hours) Vital Signs Temp Pulse Resp BP Pulse Ox O2 Del Method 02/02/23 21:30 37.5 C 78 18 104/67 96 Room Air PG Care Time/CCT Total # of Minutes Spent Total Time Spent with Patient: Total time spent is greater than 50% in coordination of care (as documented) at patient's floor/unit and/or counseling patient: Coding Level of Care Code 60903 SUB INP/OBS CARE 2/35MIN Diagnoses Cholecystitis K81.9 DM2 (diabetes mellitus, type 2) E11.9 Hypertension I10 Severe sleep apnea G47.30 Esophageal reflux K21.9
[2023-02-03] MEDS: INSULIN ASPART PER UNIT CHARGE SC SCH ×4 (07:59→17:01)
[2023-02-03] MEDS ORDERED: PIPERACILLIN/TAZOBACTAM 4.5 GM in DEXTROSE 5% 100 ML IV ONE (08:00)
[2023-02-03] MEDS ORDERED: PANTOprazole 40 MG in DEXTROSE 5% 100 ML IV SCH (09:00)
[2023-02-03] MEDS: PANTOprazole 40 MG in SYRINGE 0 ML IV SCH (10:16)
[2023-02-03] MEDS: PIPERACILLIN/TAZOBACTAM 4.5 GM in DEXTROSE 5% 100 ML IV SCH ×2 (12:06→20:20)
--- NOTE | 2023-02-03 12:54 | Gastrointestinal Consultation ---
Date of Consultation February 03, 2023 Assessment & Plan (1) Right upper quadrant pain: (2) Cholecystitis: Plan -NPO for now. -Continue IV abx as prescribed. -Await general surgery consultation in regard to need for cholecystectomy. -Continue supportive care per primary team. Thank you for allowing us to participate in the care of this patient. If you have any questions or concerns, please do not hesitate to contact us. Supervising Physician Co-Signing Physician Notes I saw the patient and agree with the findings as documented by ANKIT Devine continue abx, await surgical recs regarding possible ccy. History of Present Illness Reason for Consultation: Cystic duct obstruction, acute cholecystitis Requesting Physician: Dr. Hairston Attending Physician: Neelima Hairston, History of Present Illness Patient is a 63 year-old female with a history of DM2, HLD, IBS, and sleep apnea admitted with RUQ pain, fevers and abnormal HIDA scan demonstrating cystic duct obstruction concerning for acute cholecystitis. ALT and lipase were mildly elevated at 74 and 151 respectively although repeat labs today were normal. She states she was seen by general surgery and is planned to have gall bladder ultrasound today. Reports ongoing RUQ pain but no n/v or further f/c. She has been placed on NPO status and initiated on IV abx. Outpatient work up with recent EGD by Dr. Peck and [facility]. Colonoscopy was performed in 2020. Allergies Allergy/AdvReac Type Severity Reaction Status Date / Time hydromorphone [From Dilaudid] AdvReac Severe Migraine Verified 02/02/23 00:53 morphine AdvReac Severe HEADACHE Verified 02/02/23 00:53 Home Medications Medication Instructions Recorded Confirmed Type lorazepam 0.5 mg tablet 0.5 mg PO UD PRN Anxiety #30 tabs 12/28/18 02/02/23 History meclizine 25 mg tablet 12.5 - 25 mg PO UD PRN Vertigo #30 03/06/19 02/02/23 History tabs cyclobenzaprine 5 mg tablet 5 mg PO TID PRN muscle spasm #30 12/13/19 02/02/23 Rx tabs dicyclomine 20 mg tablet 20 mg PO QID PRN diarrhea #120 tabs 11/13/20 02/02/23 Rx naproxen 500 mg tablet 500 mg PO BID PRN pain #14 tabs 05/13/21 02/02/23 Rx blood-glucose meter (OneTouch #1 ea 08/11/21 01/20/23 Rx Ultra2 Meter kit) pen needle, diabetic 32 gauge x #100 ea 11/04/21 01/20/23 Rx 5/32" (BD Manju 2nd Gen Pen Needle) cholecalciferol (vitamin D3) 125 125 mcg PO QAM 11/17/21 02/02/23 History mcg (5,000 unit) capsule alendronate 5 mg tablet 5 mg PO WK 03/23/22 02/02/23 History lancets (OneTouch UltraSoft #100 ea 04/19/22 01/20/23 Rx Lancets) lisinopril 10 mg tablet 10 mg PO QAM #90 tabs 11/08/22 02/02/23 Rx pantoprazole 40 mg tablet,delayed 40 mg PO QAM #90 tabs 11/08/22 02/02/23 Rx release venlafaxine 75 mg capsule,extended 75 mg PO QAM #90 caps 11/08/22 02/02/23 Rx release 24 hr atorvastatin 10 mg tablet 10 mg PO QPM 02/02/23 02/02/23 History metformin 750 mg tablet,extended 750 mg PO QAM 02/02/23 02/02/23 History release 24 hr semaglutide 1 mg/dose (4 mg/3 mL) 1 mg subcut WK 02/02/23 02/02/23 History subcutaneous pen injector Patient History Medical History Common migraine without aura HX Depression Diabetes mellitus, type 2 NIDDM Diverticular disease hx Esophageal reflux Hepatic steatosis Hiatal hernia HTN (hypertension) Hyperlipidemia IBS (irritable bowel syndrome) Insomnia Severe sleep apnea cpap Vertigo HX Surgical History History of colonoscopy History of esophagogastroduodenoscopy (EGD) History of tooth extraction Hx of arthroscopy of left knee Hx of cataract extraction RT/LT Hx of section x1 S/P ORIF (open reduction internal fixation) fracture left arm with hardware S/P reduction mammoplasty Tear of meniscus of left knee with surgical intervention Family History Mother Lung cancer Heart valve replaced Stomach cancer Gallbladder disease Hypertension Kidney disease Lung disease Father Lung cancer Sister Hypertension Atrial fibrillation Ovarian cancer Brother Obstructive sleep apnea Atrial fibrillation Other No significant family history Denies family history of Prostate cancer Myocardial infarction Breast cancer Colorectal cancer Social History Smoking Status: Never smoker Second Hand Exposure: Yes (hx. 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 How many Children do You have: 1 Feels Safe at Home: Yes Childhood Exposure to Second-Hand Smoke: Yes Diet: regular caffeine: Yes during the past year weight has: decreased > 10 lbs Dental Care, Regularly: Yes Physical Activity Frequency: Does not Exercise Seatbelt Use: always Sunscreen Use: Yes Assistive Devices: CPAP Review of Systems Constitutional: as per Subjective / HPI Gastrointestinal: as per Subjective / HPI Physical Exam Constitutional: + obese; no acute distress Respiratory: normal respiratory effort, lungs clear to auscultation Cardiovascular: RRR, no murmur, no edema Gastrointestinal (Abdomen): Inspection/Auscultation: normal bowel sounds Percussion/Palpation: + abdomen tender (RUQ) and abdomen soft; no guarding and abdomen not rigid Psychiatric: A+Ox3, euthymic affect Results & Data Vital Signs (Past 12 Hours) Vital Signs Temp Pulse Resp BP Pulse Ox O2 Del Method 02/03/23 07:08 36.7 C 66 16 108/69 98 Room Air Diagnostic Findings Laboratory Results WBC 3.72 K/ul (4.8-10.8) L 02/03/23 05:58 RBC 3.56 M/uL (4.20-5.40) L 02/03/23 05:58 Hgb 9.7 g/dl (12.0-16.0) L 02/03/23 05:58 Hct 30.6 % (37.0-47.0) L 02/03/23 05:58 MCV 86.0 fL (80.0-100.0) 02/03/23 05:58 MCH 27.2 pg (25.0-34.0) 02/03/23 05:58 MCHC 31.7 g/dL (32.0-36.0) L 02/03/23 05:58 RDW Std Deviation 46.6 fL (36.4-46.3) H 02/03/23 05:58 RDW Coeff of [place] 14.6 % (11.5-14.5) H 02/03/23 05:58 Plt Count 118 K/uL (130-400) L 02/03/23 05:58 MPV 10.0 fL (9.4-12.4) 02/03/23 05:58 Immature Gran % (Auto) 0.3 % 02/03/23 05:58 Neut % (Auto) 52.1 % 02/03/23 05:58 Lymph % (Auto) 35.2 % 02/03/23 05:58 [place] % (Auto) 11.3 % 02/03/23 05:58 Eos % (Auto) 0.8 % 02/03/23 05:58 Baso % (Auto) 0.3 % 02/03/23 05:58 Neut # (Auto) 1.94 K/uL (1.40-6.50) 02/03/23 05:58 Lymph # (Auto) 1.31 K/uL (1.20-3.40) 02/03/23 05:58 [place] # (Auto) 0.42 K/uL (0.11-0.59) 02/03/23 05:58 Eos # (Auto) 0.03 K/uL (0.00-0.50) 02/03/23 05:58 Baso # (Auto) 0.01 K/uL (0.00-0.20) 02/03/23 05:58 Immature Gran # (Auto) 0.01 K/uL (0.01-0.20) 02/03/23 05:58 PT 11.0 Seconds (9.0-12.0) 02/02/23 00:00 INR 1.0 (0.9-1.1) 02/02/23 00:00 Sodium 140 mmol/L (136-145) 02/03/23 05:58 Potassium 3.8 mmol/L (3.5-5.1) 02/03/23 05:58 Chloride 109 mmol/L (98-107) H 02/03/23 05:58 Carbon Dioxide 26 mmol/L (21-32) 02/03/23 05:58 Anion Gap 5 (3-11) 02/03/23 05:58 BUN 8 mg/dl (6-23) 02/03/23 05:58 Creatinine 0.67 mg/dl (0.6-1.2) 02/03/23 05:58 Est Cr Clr Drug Dosing 95.4 ml/min 02/03/23 05:58 Est GFR ( Amer) 108.4 ml/min 02/03/23 05:58 Est GFR (Non-Af Amer) 93.5 ml/min 02/03/23 05:58 BUN/Creatinine Ratio 11.9 (10-20) 02/03/23 05:58 Glucose 102 mg/dl (70-99(Fasting)) H 02/03/23 05:58 POC Glucose 99 mg/dl (70-99) 02/03/23 11:53 Estimat Average Glucose 120 mg/dl 02/03/23 05:58 Hemoglobin A1c 5.8 % (4.5-5.6) H 02/03/23 05:58 Lactate 1.2 mmol/L (0.4-2.0) 02/02/23 02:59 Calcium 7.7 mg/dl (8.6-10.3) L 02/03/23 05:58 Total Bilirubin 0.6 mg/dl (0.2-1.0) 02/03/23 05:58 AST 19 U/L (13-39) 02/03/23 05:58 ALT 40 U/L (7-52) 02/03/23 05:58 Alkaline Phosphatase 57 U/L (34-104) 02/03/23 05:58 Troponin I High Sens 3.4 pg/ml (0-14) 02/02/23 00:00 Total Protein 5.7 gm/dl (6.0-8.3) L 02/03/23 05:58 Albumin 3.3 gm/dl (3.4-5.0) L 02/03/23 05:58 Globulin 2.4 gm/dl (2.5-4.0) L 02/03/23 05:58 Albumin/Globulin Ratio 1.4 (0.9-2) 02/03/23 05:58 Lipase 42 U/L (11-82) 02/03/23 05:58 Procalcitonin 0.26 ng/ml (0-0.5) 02/02/23 00:00 Urine Color Yellow 02/02/23 00:00 Urine Appearance Slightly Cloudy (Clear) 02/02/23 00:00 Urine pH 6.0 (4.5-7.5) 02/02/23 00:00 Ur Specific [place] 1.010 (1.000-1.030) 02/02/23 00:00 Urine Protein Negative (Negative) 02/02/23 00:00 Urine Glucose (UA) Negative (Negative) 02/02/23 00:00 Urine Ketones Negative (Negative) 02/02/23 00:00 Urine Blood Negative (Negative) 02/02/23 00:00 Urine Nitrite Negative (Negative) 02/02/23 00:00 Urine Bilirubin Negative (Negative) 02/02/23 00:00 Urine Urobilinogen Negative (Negative) 02/02/23 00:00 Ur Leukocyte Esterase Negative (Negative) 02/02/23 00:00 Adenovirus (PCR) Not Detected (NotDetected) 02/02/23 01:44 Anaplasma Smear See Comment 02/02/23 00:00 Babesia Smear See Comment 02/02/23 00:00 B. pertussis DNA (PCR) Not Detected (NotDetected) 02/02/23 01:44 B.parapertussis DNA PCR Not Detected (NotDetected) 02/02/23 01:44 Lyme Disease IgG Ab Negative (Negative) 02/02/23 00:00 Lyme Disease IgM Ab Negative (Negative) 02/02/23 00:00 C. pneumoniae DNA (PCR) Not Detected (NotDetected) 02/02/23 01:44 Coronavirus OC43 (PCR) Not Detected (NotDetected) 02/02/23 01:44 Coronavirus HKU1 (PCR) Not Detected (NotDetected) 02/02/23 01:44 Coronavirus 229E (PCR) Not Detected (NotDetected) 02/02/23 01:44 SARS-CoV-2 (PCR) Not Detected (NotDetected) 02/02/23 01:44 Coronavirus NL63 (PCR) Not Detected (NotDetected) 02/02/23 01:44 Human Metapneumovir PCR Not Detected (NotDetected) 02/02/23 01:44 Influenza Type A (PCR) Not Detected (NotDetected) 02/02/23 01:44 Influenza Type B (PCR) Not Detected (NotDetected) 02/02/23 01:44 M. pneumoniae (PCR) Not Detected (NotDetected) 02/02/23 01:44 Parainfluenza 1 (PCR) Not Detected (NotDetected) 02/02/23 01:44 Parainfluenza 2 (PCR) Not Detected (NotDetected) 02/02/23 01:44 Parainfluenza 3 (PCR) Not Detected (NotDetected) 02/02/23 01:44 Parainfluenza 4 (PCR) Not Detected (NotDetected) 02/02/23 01:44 RSV (PCR) Not Detected (NotDetected) 02/02/23 01:44 Entero/Rhino (PCR) Not Detected (NotDetected) 02/02/23 01:44 Impressions Abdomen/Pelvis CT 02/02/23 00:36 Exam(s): CT ABDOMEN + PELVIS With Contrast IV Amt: 90 ML OPTIRAY 320 EXAM: CT Abdomen and Pelvis With Intravenous Contrast CLINICAL HISTORY: Reason for exam: epigastric pain. TECHNIQUE: Axial computed tomography images of the abdomen and pelvis with intravenous contrast. CTDI is 28.04 mGy and DLP is 1437.97 mGy-cm. Automated exposure control was utilized for the study. A dose lowering technique was utilized adhering to the principles of ALARA. CONTRAST: Patient received 90 ML OPTIRAY 320 of IV contrast COMPARISON: 02/12/2018. FINDINGS: Lung bases: Minimal bilateral lower lobe atelectasis. ABDOMEN: Liver: Mild diffuse fatty liver. Gallbladder and bile ducts: Unremarkable. No calcified stones. No ductal dilation. Pancreas: Unremarkable. No mass. No ductal dilation. Spleen: Unremarkable. No splenomegaly. Adrenals: Unremarkable. No mass. Kidneys and ureters: Unremarkable. No solid mass. No hydronephrosis. Stomach and bowel: Mild multilevel diverticulosis with no signs of diverticulitis. No obstruction. PELVIS: Appendix: Normal appendix. Bladder: Unremarkable. No mass. Reproductive: Unremarkable as visualized. ABDOMEN and PELVIS: Intraperitoneal space: Unremarkable. No free air. No significant fluid collection. Bones/joints: Multilevel degenerative disease of the spine. No acute fracture. No dislocation. Soft tissues: Unremarkable. Vasculature: Unremarkable. No abdominal aortic aneurysm. Lymph nodes: Unremarkable. No enlarged lymph nodes. IMPRESSION: 1. Diverticulosis with no signs of diverticulitis. No acute appendicitis or bowel obstruction. 2. Mild diffuse fatty liver, otherwise unremarkable abdominal viscera. Electronically signed by: Ny Adam MD 02/02/23 02:22 AM Chest X-Ray 02/02/23 02:54 XR chest 1V portable CLINICAL HISTORY: fever TECHNIQUE: Single frontal radiograph of the chest was obtained. Comparison: Comparison is made to chest radiograph 02/17/2010 FINDINGS: Exam is limited by underpenetration. The cardiomediastinal silhouette is normal. The lungs are clear. No evidence of pleural effusion or pneumothorax. IMPRESSION: No acute abnormalities and in particular no radiographic evidence of pneumonia. ACT 112: Negative or not required by law. Electronically signed by: Surinder Cortes M.D. 02/02/2023 7:30 AM Hepatobiliary Scan Nuclear Medicine 02/02/23 03:32 NM hepatobiliary EF CLINICAL HISTORY: RUQ pain, elevated AST, Lipase COMPARISON STUDY: CT of the abdomen and pelvis February 02, 2023. TECHNIQUE: 5.5 mCi of technetium 99m Choletec was injected IV at 12:49 PM on February 02, 2023. Imaging of the abdomen was performed in the anterior projection at 60 minutes. No gallbladder activity was identified and therefore imaging was carried out for an additional 3 hours. FINDINGS: Hepatic uptake of radiotracer is prompt and homogeneous. No activity within the gallbladder was noted at 60 minutes. Imaging was carried out for additional 3 hours and no gallbladder activity is identified. This suggests cystic duct obstruction. IMPRESSION: No radiotracer within the gallbladder at 4 hours. This suggests cystic duct obstruction and favors acute cholecystitis. ACT 112: Negative or not required by law. Electronically signed by: Marvin Souza M.D. 02/02/2023 5:01 PM PG Care Time/CCT Total # of Minutes Spent Total Time Spent with Patient: Total time spent is greater than 50% in coordination of care (as documented) at patient's floor/unit and/or counseling patient: Coding Level of Care Code 03424 OFFICE CONSULT LVL Diagnoses Right upper quadrant pain R10.11 Cholecystitis K81.9
--- NOTE | 2023-02-03 14:16 | Surgery Consultation ---
Date of Consultation February 03, 2023 Assessment & Plan (1) Cholecystitis: (2) Right upper quadrant pain: (3) Elevated lipase: (4) Transaminitis: Plan 63 year-old female with now 4 day history of epigastric and RUQ abdominal pain with associated nausea and no vomiting with HIDA scan showing acute cholecystitis, mild elevation in alt and lipase now resolved. RUQ abdominal pain on examination. No leukocytosis, afebrile. Plan: Will obtain US to further evaluate gallbladder. Continue IV antibiotics continue npo until further work-up continue pain management as needed continue medical management Dr. Davidson has seen and examined patient, agrees with above. History of Present Illness Reason for Consultation: acute cholecystitis Requesting Physician: Neelima Hairston DO Attending Physician: Neelima Hairston DO History of Present Illness Rabia is a 63 year-old female with history of HTN, DM2, IBS, migraines, hepatic steatosis, hyperlipidemia, sleep apnea, vertigo who presented to ED with complaint of mid to right upper abdominal pain with associated nausea that began at 6 am Tuesday. Had some beer and hot dogs on Tuesday and pain started on Tuesday. No associated fever, chills, chest pain, shortness of breath, changes in bowel habits, diarrhea, constipation, blood in stools, acholic stools, difficulty urinating. No prior history of gallbladder issues. ER work-up included labs which showed no leukocytosis, afebrile, slight increase in ALT and lipase, however t. bili normal. CT scan of abdomen and pelvis with IV contrast showing no acute abnormality. HIDA scan obtained which showed cystic duct obstruction consistent with acute cholecystitis. She currently states her pain is still present in RUQ but managable with Tylenol. No nausea or vomiting. [place] hot last night with sweating but no fevers. History of prior . No other abdominal surgeries. Allergies Allergy/AdvReac Type Severity Reaction Status Date / Time hydromorphone [From Dilaudid] AdvReac Severe Migraine Verified 02/02/23 00:53 morphine AdvReac Severe HEADACHE Verified 02/02/23 00:53 Home Medications Medication Instructions Recorded Confirmed Type lorazepam 0.5 mg tablet 0.5 mg PO UD PRN Anxiety #30 tabs 12/28/18 02/02/23 History meclizine 25 mg tablet 12.5 - 25 mg PO UD PRN Vertigo #30 03/06/19 02/02/23 History tabs cyclobenzaprine 5 mg tablet 5 mg PO TID PRN muscle spasm #30 12/13/19 02/02/23 Rx tabs dicyclomine 20 mg tablet 20 mg PO QID PRN diarrhea #120 tabs 11/13/20 02/02/23 Rx naproxen 500 mg tablet 500 mg PO BID PRN pain #14 tabs 05/13/21 02/02/23 Rx blood-glucose meter (OneTouch #1 ea 08/11/21 01/20/23 Rx Ultra2 Meter kit) pen needle, diabetic 32 gauge x #100 ea 11/04/21 01/20/23 Rx 532" (BD Manju 2nd Gen Pen Needle) cholecalciferol (vitamin D3) 125 125 mcg PO QAM 11/17/21 02/02/23 History mcg (5,000 unit) capsule alendronate 5 mg tablet 5 mg PO WK 03/23/22 02/02/23 History lancets (OneTouch UltraSoft #100 ea 04/19/22 01/20/23 Rx Lancets) lisinopril 10 mg tablet 10 mg PO QAM #90 tabs 11/08/22 02/02/23 Rx pantoprazole 40 mg tablet,delayed 40 mg PO QAM #90 tabs 11/08/22 02/02/23 Rx release venlafaxine 75 mg capsule,extended 75 mg PO QAM #90 caps 11/08/22 02/02/23 Rx release 24 hr atorvastatin 10 mg tablet 10 mg PO QPM 02/02/23 02/02/23 History metformin 750 mg tablet,extended 750 mg PO QAM 02/02/23 02/02/23 History release 24 hr semaglutide 1 mg/dose (4 mg/3 mL) 1 mg subcut WK 02/02/23 02/02/23 History subcutaneous pen injector Patient History Medical History Common migraine without aura HX Depression Diabetes mellitus, type 2 NIDDM Diverticular disease hx Esophageal reflux Hepatic steatosis Hiatal hernia HTN (hypertension) Hyperlipidemia IBS (irritable bowel syndrome) Insomnia Severe sleep apnea cpap Vertigo HX Surgical History History of colonoscopy History of esophagogastroduodenoscopy (EGD) History of tooth extraction Hx of arthroscopy of left knee Hx of cataract extraction RT/LT Hx of section x1 S/P ORIF (open reduction internal fixation) fracture left arm with hardware S/P reduction mammoplasty Tear of meniscus of left knee with surgical intervention Family History Mother Lung cancer Heart valve replaced Stomach cancer Gallbladder disease Hypertension Kidney disease Lung disease Father Lung cancer Sister Hypertension Atrial fibrillation Ovarian cancer Brother Obstructive sleep apnea Atrial fibrillation Other No significant family history Denies family history of Prostate cancer Myocardial infarction Breast cancer Colorectal cancer Social History Smoking Status: Never smoker Second Hand Exposure: Yes (hx. parents smoked); Do You Dip or Chew Tobacco: No; Hx Alcohol Use: Yes Alcohol type: beer Alcohol Intake Frequency: 2-3 x/Week Alcohol Intake Frequency Comment: 3 drinks/week Hx Substance Use: No Preferred Language: Gambian Communication Ability: Effective Visual Impairment: No Limitations Hearing Ability: Normal Probe Operator Required: No Beliefs That Will Affect Care: None marital status: Current Living Situation: Spouse current occupational status: retired current occupation: [employer] How many Children do You have: 1 Feels Safe at Home: Yes Childhood Exposure to Second-Hand Smoke: Yes Diet: regular caffeine: Yes during the past year weight has: decreased > 10 lbs Dental Care, Regularly: Yes Physical Activity Frequency: Does not Exercise Seatbelt Use: always Sunscreen Use: Yes Assistive Devices: CPAP Review of Systems Review of Systems: All systems reviewed & are unremarkable except as noted in HPI & below Physical Exam Constitutional: WD/WN, vitals as above + obese, cooperative and comfortable; no acute distress and not ill appearing Respiratory: normal respiratory effort, lungs clear to auscultation Cardiovascular: RRR, no murmur, no edema Gastrointestinal (Abdomen): Inspection/Auscultation: abdomen normal to inspection and + abdominal surgical scar (lower scar); abdomen not distended Percussion/Palpation: + abdomen tender (RUQ on deep palpation) and abdomen soft; no guarding, abdomen not rigid and abdomen not firm Skin: no rashes, warm and dry no jaundice Psychiatric: A+Ox3, euthymic affect Results & Data Vital Signs (Past 12 Hours) Vital Signs Temp Pulse Resp BP Pulse Ox O2 Del Method 02/03/23 07:08 36.7 C 66 16 108/69 98 Room Air Laboratory Results 02/03/23 02/03/23 02/03/23 Range/Units 16:44 11:53 07:38 WBC (4.8-10.8) K/ul RBC (4.20-5.40) M/uL Hgb (12.0-16.0) g/dl Hct (37.0-47.0) % MCV (80.0-100.0) fL MCH (25.0-34.0) pg MCHC (32.0-36.0) g/dL RDW Std Deviation (36.4-46.3) fL RDW Coeff of Louis (11.5-14.5) % Plt Count (130-400) K/uL MPV (9.4-12.4) fL Immature Gran % (Auto) % Neut % (Auto) % Lymph % (Auto) % Boyd % (Auto) % Eos % (Auto) % Baso % (Auto) % Neut # (Auto) (1.40-6.50) K/uL Lymph # (Auto) (1.20-3.40) K/uL Boyd # (Auto) (0.11-0.59) K/uL Eos # (Auto) (0.00-0.50) K/uL Baso # (Auto) (0.00-0.20) K/uL Immature Gran # (Auto) (0.01-0.20) K/uL Sodium (136-145) mmol/L Potassium (3.5-5.1) mmol/L Chloride (98-107) mmol/L Carbon Dioxide (21-32) mmol/L Anion Gap (3-11) BUN (6-23) mg/dl Creatinine (0.6-1.2) mg/dl Est Cr Clr Drug Dosing ml/min Est GFR ( Amer) ml/min Est GFR (Non-Af Amer) ml/min BUN/Creatinine Ratio (10-20) Glucose (70-99(Fasting)) mg/dl POC Glucose 96 99 117 H (70-99) mg/dl Estimat Average Glucose mg/dl Hemoglobin A1c (4.5-5.6) % Calcium (8.6-10.3) mg/dl Total Bilirubin (0.2-1.0) mg/dl AST (13-39) U/L ALT (7-52) U/L Alkaline Phosphatase (34-104) U/L Total Protein (6.0-8.3) gm/dl Albumin (3.4-5.0) gm/dl Globulin (2.5-4.0) gm/dl Albumin/Globulin Ratio (0.9-2) Lipase (11-82) U/L 02/03/23 02/03/23 02/03/23 Range/Units 05:58 05:58 05:58 WBC 3.72 L (4.8-10.8) K/ul RBC 3.56 L (4.20-5.40) M/uL Hgb 9.7 L (12.0-16.0) g/dl Hct 30.6 L (37.0-47.0) % MCV 86.0 (80.0-100.0) fL MCH 27.2 (25.0-34.0) pg MCHC 31.7 L (32.0-36.0) g/dL RDW Std Deviation 46.6 H (36.4-46.3) fL RDW Coeff of Louis 14.6 H (11.5-14.5) % Plt Count 118 L (130-400) K/uL MPV 10.0 (9.4-12.4) fL Immature Gran % (Auto) 0.3 % Neut % (Auto) 52.1 % Lymph % (Auto) 35.2 % Boyd % (Auto) 11.3 % Eos % (Auto) 0.8 % Baso % (Auto) 0.3 % Neut # (Auto) 1.94 (1.40-6.50) K/uL Lymph # (Auto) 1.31 (1.20-3.40) K/uL Boyd # (Auto) 0.42 (0.11-0.59) K/uL Eos # (Auto) 0.03 (0.00-0.50) K/uL Baso # (Auto) 0.01 (0.00-0.20) K/uL Immature Gran # (Auto) 0.01 (0.01-0.20) K/uL Sodium 140 (136-145) mmol/L Potassium 3.8 (3.5-5.1) mmol/L Chloride 109 H (98-107) mmol/L Carbon Dioxide 26 (21-32) mmol/L Anion Gap 5 (3-11) BUN 8 (6-23) mg/dl Creatinine 0.67 (0.6-1.2) mg/dl Est Cr Clr Drug Dosing 95.4 ml/min Est GFR ( Amer) 108.4 ml/min Est GFR (Non-Af Amer) 93.5 ml/min BUN/Creatinine Ratio 11.9 (10-20) Glucose 102 H (70-99(Fasting)) mg/dl POC Glucose (70-99) mg/dl Estimat Average Glucose 120 mg/dl Hemoglobin A1c 5.8 H (4.5-5.6) % Calcium 7.7 L (8.6-10.3) mg/dl Total Bilirubin 0.6 (0.2-1.0) mg/dl AST 19 (13-39) U/L ALT 40 (7-52) U/L Alkaline Phosphatase 57 (34-104) U/L Total Protein 5.7 L (6.0-8.3) gm/dl Albumin 3.3 L (3.4-5.0) gm/dl Globulin 2.4 L (2.5-4.0) gm/dl Albumin/Globulin Ratio 1.4 (0.9-2) Lipase 42 (11-82) U/L 02/02/23 Range/Units 20:47 WBC (4.8-10.8) K/ul RBC (4.20-5.40) M/uL Hgb (12.0-16.0) g/dl Hct (37.0-47.0) % MCV (80.0-100.0) fL MCH (25.0-34.0) pg MCHC (32.0-36.0) g/dL RDW Std Deviation (36.4-46.3) fL RDW Coeff of Louis (11.5-14.5) % Plt Count (130-400) K/uL MPV (9.4-12.4) fL Immature Gran % (Auto) % Neut % (Auto) % Lymph % (Auto) % Boyd % (Auto) % Eos % (Auto) % Baso % (Auto) % Neut # (Auto) (1.40-6.50) K/uL Lymph # (Auto) (1.20-3.40) K/uL Boyd # (Auto) (0.11-0.59) K/uL Eos # (Auto) (0.00-0.50) K/uL Baso # (Auto) (0.00-0.20) K/uL Immature Gran # (Auto) (0.01-0.20) K/uL Sodium (136-145) mmol/L Potassium (3.5-5.1) mmol/L Chloride (98-107) mmol/L Carbon Dioxide (21-32) mmol/L Anion Gap (3-11) BUN (6-23) mg/dl Creatinine (0.6-1.2) mg/dl Est Cr Clr Drug Dosing ml/min Est GFR ( Amer) ml/min Est GFR (Non-Af Amer) ml/min BUN/Creatinine Ratio (10-20) Glucose (70-99(Fasting)) mg/dl POC Glucose 102 H (70-99) mg/dl Estimat Average Glucose mg/dl Hemoglobin A1c (4.5-5.6) % Calcium (8.6-10.3) mg/dl Total Bilirubin (0.2-1.0) mg/dl AST (13-39) U/L ALT (7-52) U/L Alkaline Phosphatase (34-104) U/L Total Protein (6.0-8.3) gm/dl Albumin (3.4-5.0) gm/dl Globulin (2.5-4.0) gm/dl Albumin/Globulin Ratio (0.9-2) Lipase (11-82) U/L Diagnostic Findings NM hepatobiliary EF CLINICAL HISTORY: RUQ pain, elevated AST, Lipase COMPARISON STUDY: CT of the abdomen and pelvis February 02, 2023. TECHNIQUE: 5.5 mCi of technetium 99m Choletec was injected IV at 12:49 PM on February 02, 2023. Imaging of the abdomen was performed in the anterior projection at 60 minutes. No gallbladder activity was identified and therefore imaging was carried out for an additional 3 hours. FINDINGS: Hepatic uptake of radiotracer is prompt and homogeneous. No activity within the gallbladder was noted at 60 minutes. Imaging was carried out for additional 3 hours and no gallbladder activity is identified. This suggests cystic duct obstruction. IMPRESSION: No radiotracer within the gallbladder at 4 hours. This suggests cystic duct obstruction and favors acute cholecystitis. Exam(s): CT ABDOMEN + PELVIS With Contrast IV Amt: 90 ML OPTIRAY 320 EXAM: CT Abdomen and Pelvis With Intravenous Contrast CLINICAL HISTORY: Reason for exam: epigastric pain. TECHNIQUE: Axial computed tomography images of the abdomen and pelvis with intravenous contrast. CTDI is 28.04 mGy and DLP is 1437.97 mGy-cm. Automated exposure control was utilized for the study. A dose lowering technique was utilized adhering to the principles of ALARA. CONTRAST: Patient received 90 ML OPTIRAY 320 of IV contrast COMPARISON: 02/12/2018. FINDINGS: Lung bases: Minimal bilateral lower lobe atelectasis. ABDOMEN: Liver: Mild diffuse fatty liver. Gallbladder and bile ducts: Unremarkable. No calcified stones. No ductal dilation. Pancreas: Unremarkable. No mass. No ductal dilation. Spleen: Unremarkable. No splenomegaly. Adrenals: Unremarkable. No mass. Kidneys and ureters: Unremarkable. No solid mass. No hydronephrosis. Stomach and bowel: Mild multilevel diverticulosis with no signs of diverticulitis. No obstruction. PELVIS: Appendix: Normal appendix. Bladder: Unremarkable. No mass. Reproductive: Unremarkable as visualized. ABDOMEN and PELVIS: Intraperitoneal space: Unremarkable. No free air. No significant fluid collection. Bones/joints: Multilevel degenerative disease of the spine. No acute fracture. No dislocation. Soft tissues: Unremarkable. Vasculature: Unremarkable. No abdominal aortic aneurysm. Lymph nodes: Unremarkable. No enlarged lymph nodes. IMPRESSION: 1. Diverticulosis with no signs of diverticulitis. No acute appendicitis or bowel obstruction. 2. Mild diffuse fatty liver, otherwise unremarkable abdominal viscera.
--- NOTE | 2023-02-03 14:33 | Ultrasound Report ---
ULTRASOUND RIGHT UPPER QUADRANT ABDOMEN CLINICAL HISTORY: Right upper quadrant abdominal pain. Abnormal hepatobiliary scan. COMPARISON STUDY: Abdominal CT dated 02/02/2023. Nuclear hepatobiliary scan dated 02/02/2023. TECHNIQUE: Real-time, grayscale, and color flow sonography of the right upper quadrant of the abdomen was performed. Images are reviewed in the transverse and longitudinal planes. FINDINGS: Liver: The liver is enlarged and demonstrates heterogeneous increased echotexture indicating steatosi s. No significant intrahepatic biliary ductal dilatation is seen. The main portal vein is patent. Gallbladder: The gallbladder is distended, and the wall is mildly thickened measuring up to 3 mm. No shadowing gallstones are identified. No pericholecystic fluid is seen. A sonographic Ty's sign is reportedly present. The common bile duct is dilated, measuring up to 1.0 cm in diameter. Pancreas: Visualized portions of the pancreatic head and body are normal in appearance. Right kidney: Survey images of the right kidney demonstrate normal size and echotexture. There is no hydronephrosis. Ascites: None. IMPRESSION: 1. Abnormal gallbladder as above with a positive sonographic Ty's sign. No shadowing gallstones a re identified. When correlated with yesterday's HIDA scan findings are highly suspicious for acute ch olecystitis, which may be acalculus. Surgical assessment is advised. 2. The common bile duct is dilated measuring up to 1.0 cm diameter. Underlying choledocholithiasis is not excluded. 3. Hepatomegaly and hepatic steatosis. ACT 112: Negative or not required by law. Electronically signed by: Reginaldo Amin M.D. 02/03/2023 2:32 PM
[2023-02-03] MEDS ORDERED: Nursing to Pharmacy Communication SCH (17:00)
[2023-02-04] MEDS: INSULIN ASPART PER UNIT CHARGE SC SCH ×5 (00:29→20:32)
[2023-02-04] MEDS: PIPERACILLIN/TAZOBACTAM 4.5 GM in DEXTROSE 5% 100 ML IV SCH ×3 (04:02→19:49)
[2023-02-04 07:54] LABS: Basophils # (auto) 0.02 K/uL (0.00-0.20); Basophils % (auto) 0.5 %; Eosinophils # (auto) 0.07 K/uL (0.00-0.50); Eosinophils % (auto) 1.6 %; Hematocrit (blood only) 30.5 % (37.0-47.0); Hemoglobin 9.8 g/dl (12.0-16.0); Immature Granulocytes # (auto) 0.01 K/uL (0.01-0.20); Immature Granulocytes % (auto) 0.2 %; Lymphocytes # (auto) 1.15 K/uL (1.20-3.40); Lymphocytes % (auto) 26.3 %; Mean Corpuscular Hemoglobin 27.5 pg (25.0-34.0); Mean Corpuscular Hgb Conc 32.1 g/dL (32.0-36.0); Mean Corpuscular Volume 85.7 fL (80.0-100.0); Mean Platelet Volume 10.6 fL (9.4-12.4); Monocytes # (auto) 0.28 K/uL (0.11-0.59); Monocytes % (auto) 6.4 %; Neutrophils # (auto) 2.84 K/uL (1.40-6.50); Platelet Count 142 K/uL (130-400); RDW Coefficient of Variation 14.6 % (11.5-14.5); RDW Standard Deviation 45.9 fL (36.4-46.3); Red Blood Count 3.56 M/uL (4.20-5.40); White Blood Count 4.37 K/ul (4.8-10.8)
[2023-02-04 08:15] LABS: Albumin Globulin Ratio 1.4 (0.9-2); Albumin Level 3.4 gm/dl (3.4-5.0); BUN Creatinine Ratio 11.9 (10-20); Bilirubin,Total 0.7 mg/dl (0.2-1.0); Calcium 7.6 mg/dl (8.6-10.3); Creatinine Clr Calc Pharmacy 108.4 ml/min; Est GFR (African American) 113.1 ml/min; Est GFR (Non-African American) 97.5 ml/min; Globulin 2.5 gm/dl (2.5-4.0); Potassium 3.6 mmol/L (3.5-5.1); Total Protein 5.9 gm/dl (6.0-8.3)
[2023-02-04] MEDS: NSS + 20MEQ KCL 20 MEQ/1,000 ML BAG IV SCH ×2 (09:10→18:05)
--- NOTE | 2023-02-04 09:18 | Surgery Progress Note ---
Date of Service February 04, 2023 Assessment & Plan (1) Cholecystitis: (2) Right upper quadrant pain: (3) Elevated lipase: (4) Transaminitis: (5) Acute cholecystitis: Plan 63 year-old female with now 4 day history of epigastric and RUQ abdominal pain with associated nausea and no vomiting with HIDA scan showing acute cholecystitis, mild elevation in alt and lipase now resolved. RUQ abdominal pain on examination. No leukocytosis, afebrile. Plan: Will obtain US to further evaluate gallbladder. Continue IV antibiotics continue npo until further work-up continue pain management as needed continue medical management Dr. Davidson has seen and examined patient, agrees with above. 02/04/2023 9:[address] Davidson I reviewed pt's H/P, labs , U/S HIDA scan with pt. diagnosis- acute cholecystitis, plan: Recommend to do a laparoscopy cholecystectomy possible cholangiogram possible open. I did talk to patient about the benefits the risk and alternatives of the procedure. I indicated the risks may include but not limited to such as a bleeding, infection, injury to other organs. Bile leak. May need ERCP, incisional hernia. Patient understood. she agreed with surgery, she signed informed consent. I answered all questions. Admission and Anticipated Discharge Date Admission Date: February 02, 2023 Subjective No acute overnight events, denies abdominal pain right now, no CP/SOB/nausea. 02/04/2023 9:12 AM, DR. Davidson F/U acute cholecystitis. pt is still have a lot of RUQ pain with nausea, no vomiting, no fever, I reviewed U/S study and HIDA scan with pt. diagnosis- acute cholecystitis. Review of Systems Constitutional: as per Subjective / HPI Eyes: as per Subjective / HPI Respiratory: as per Subjective / HPI severe sleep apnea Cardiovascular: Additional Comments: HTN Gastrointestinal: splenomegaly, GERD, esophageal dysphagia Neurologic: memory loss, Psychiatric: insomnia, depression Endocrine: DM Hematologic / Lymphatic: as per Subjective / HPI Physical Exam Constitutional: WD/WN, vitals as above mild distress Eyes: PERRL, conjunctivae normal, anicteric sclerae Neck: trachea midline, no thyromegaly Respiratory: normal respiratory effort, lungs clear to auscultation Cardiovascular: RRR, no murmur, no edema Gastrointestinal (Abdomen): significant tenderness at RUQ, no rebound pain, no distend, BS +. Musculoskeletal: no cyanosis or clubbing, extremities motor strength 5/5 Neurologic: patellar DTR's 2+ bilat, sensation intact Psychiatric: A+Ox3, euthymic affect Results & Data Vital Signs (Past 12 Hours) Vital Signs Temp Pulse Resp BP Pulse Ox O2 Del Method 02/04/23 07:10 36.8 C 68 16 124/75 96 Room Air 02/03/23 22:45 89 20 143/85 H 100 Room Air Laboratory Results Lab Results 02/02/23 02/02/23 02/02/23 Range/Units 00:00 00:00 00:00 WBC 6.19 (4.8-10.8) K/ul RBC 4.42 (4.20-5.40) M/uL Hgb 12.3 (12.0-16.0) g/dl Hct 37.0 (37.0-47.0) % MCV 83.7 (80.0-100.0) fL MCH 27.8 (25.0-34.0) pg MCHC 33.2 (32.0-36.0) g/dL RDW Std Deviation 43.4 (36.4-46.3) fL RDW Coeff of Louis 14.3 (11.5-14.5) % Plt Count 177 (130-400) K/uL MPV 10.2 (9.4-12.4) fL Immature Gran % (Auto) 0.3 % Neut % (Auto) 78.2 % Lymph % (Auto) 16.2 % Christian % (Auto) 4.7 % Eos % (Auto) 0.3 % Baso % (Auto) 0.3 % Neut # (Auto) 4.84 (1.40-6.50) K/uL Lymph # (Auto) 1.00 L (1.20-3.40) K/uL Christian # (Auto) 0.29 (0.11-0.59) K/uL Eos # (Auto) 0.02 (0.00-0.50) K/uL Baso # (Auto) 0.02 (0.00-0.20) K/uL Immature Gran # (Auto) 0.02 (0.01-0.20) K/uL PT 11.0 (9.0-12.0) Seconds INR 1.0 (0.9-1.1) Sodium 135 L (136-145) mmol/L Potassium 3.8 (3.5-5.1) mmol/L Chloride 101 (98-107) mmol/L Carbon Dioxide 25 (21-32) mmol/L Anion Gap 9 (3-11) BUN 12 (6-23) mg/dl Creatinine 0.82 (0.6-1.2) mg/dl Est Cr Clr Drug Dosing 77.3 ml/min Est GFR ( Amer) 88.3 ml/min Est GFR (Non-Af Amer) 76.2 ml/min BUN/Creatinine Ratio 14.6 (10-20) Glucose 125 H (70-99(Fasting)) mg/dl POC Glucose (70-99) mg/dl Estimat Average Glucose mg/dl Hemoglobin A1c (4.5-5.6) % Lactate (0.4-2.0) mmol/L Calcium 9.0 (8.6-10.3) mg/dl Total Bilirubin 1.0 (0.2-1.0) mg/dl AST 30 (13-39) U/L ALT 74 H (7-52) U/L Alkaline Phosphatase 74 (34-104) U/L Troponin I High Sens 3.4 (0-14) pg/ml Total Protein 6.9 (6.0-8.3) gm/dl Albumin 4.1 (3.4-5.0) gm/dl Globulin 2.8 (2.5-4.0) gm/dl Albumin/Globulin Ratio 1.5 (0.9-2) Lipase 151 H (11-82) U/L Procalcitonin (0-0.5) ng/ml Urine Color Urine Appearance (Clear) Urine pH (4.5-7.5) Ur Specific [place] (1.000-1.030) Urine Protein (Negative) Urine Glucose (UA) (Negative) Urine Ketones (Negative) Urine Blood (Negative) Urine Nitrite (Negative) Urine Bilirubin (Negative) Urine Urobilinogen (Negative) Ur Leukocyte Esterase (Negative) Adenovirus (PCR) (NotDetected) Anaplasma Smear Babesia Smear B. pertussis DNA (PCR) (NotDetected) B.parapertussis DNA PCR (NotDetected) Lyme Disease IgG Ab (Negative) Lyme Disease IgM Ab (Negative) C. pneumoniae DNA (PCR) (NotDetected) Coronavirus OC43 (PCR) (NotDetected) Coronavirus HKU1 (PCR) (NotDetected) Coronavirus 229E (PCR) (NotDetected) SARS-CoV-2 (PCR) (NotDetected) Coronavirus NL63 (PCR) (NotDetected) Human Metapneumovir PCR (NotDetected) Influenza Type A (PCR) (NotDetected) Influenza Type B (PCR) (NotDetected) M. pneumoniae (PCR) (NotDetected) Parainfluenza 1 (PCR) (NotDetected) Parainfluenza 2 (PCR) (NotDetected) Parainfluenza 3 (PCR) (NotDetected) Parainfluenza 4 (PCR) (NotDetected) RSV (PCR) (NotDetected) Entero/Rhino (PCR) (NotDetected) 02/02/23 02/02/23 02/02/23 Range/Units 00:00 00:00 00:00 WBC (4.8-10.8) K/ul RBC (4.20-5.40) M/uL Hgb (12.0-16.0) g/dl Hct (37.0-47.0) % MCV (80.0-100.0) fL MCH (25.0-34.0) pg MCHC (32.0-36.0) g/dL RDW Std Deviation (36.4-46.3) fL RDW Coeff of Louis (11.5-14.5) % Plt Count (130-400) K/uL MPV (9.4-12.4) fL Immature Gran % (Auto) % Neut % (Auto) % Lymph % (Auto) % Christian % (Auto) % Eos % (Auto) % Baso % (Auto) % Neut # (Auto) (1.40-6.50) K/uL Lymph # (Auto) (1.20-3.40) K/uL Christian # (Auto) (0.11-0.59) K/uL Eos # (Auto) (0.00-0.50) K/uL Baso # (Auto) (0.00-0.20) K/uL Immature Gran # (Auto) (0.01-0.20) K/uL PT (9.0-12.0) Seconds INR (0.9-1.1) Sodium (136-145) mmol/L Potassium (3.5-5.1) mmol/L Chloride (98-107) mmol/L Carbon Dioxide (21-32) mmol/L Anion Gap (3-11) BUN (6-23) mg/dl Creatinine (0.6-1.2) mg/dl Est Cr Clr Drug Dosing ml/min Est GFR ( Amer) ml/min Est GFR (Non-Af Amer) ml/min BUN/Creatinine Ratio (10-20) Glucose (70-99(Fasting)) mg/dl POC Glucose (70-99) mg/dl Estimat Average Glucose mg/dl Hemoglobin A1c (4.5-5.6) % Lactate (0.4-2.0) mmol/L Calcium (8.6-10.3) mg/dl Total Bilirubin (0.2-1.0) mg/dl AST (13-39) U/L ALT (7-52) U/L Alkaline Phosphatase (34-104) U/L Troponin I High Sens (0-14) pg/ml Total Protein (6.0-8.3) gm/dl Albumin (3.4-5.0) gm/dl Globulin (2.5-4.0) gm/dl Albumin/Globulin Ratio (0.9-2) Lipase (11-82) U/L Procalcitonin 0.26 (0-0.5) ng/ml Urine Color Yellow Urine Appearance Slightly Cloudy (Clear) Urine pH 6.0 (4.5-7.5) Ur Specific [place] 1.010 (1.000-1.030) Urine Protein Negative (Negative) Urine Glucose (UA) Negative (Negative) Urine Ketones Negative (Negative) Urine Blood Negative (Negative) Urine Nitrite Negative (Negative) Urine Bilirubin Negative (Negative) Urine Urobilinogen Negative (Negative) Ur Leukocyte Esterase Negative (Negative) Adenovirus (PCR) (NotDetected) Anaplasma Smear See Comment Babesia Smear See Comment B. pertussis DNA (PCR) (NotDetected) B.parapertussis DNA PCR (NotDetected) Lyme Disease IgG Ab Negative (Negative) Lyme Disease IgM Ab Negative (Negative) C. pneumoniae DNA (PCR) (NotDetected) Coronavirus OC43 (PCR) (NotDetected) Coronavirus HKU1 (PCR) (NotDetected) Coronavirus 229E (PCR) (NotDetected) SARS-CoV-2 (PCR) (NotDetected) Coronavirus NL63 (PCR) (NotDetected) Human Metapneumovir PCR (NotDetected) Influenza Type A (PCR) (NotDetected) Influenza Type B (PCR) (NotDetected) M. pneumoniae (PCR) (NotDetected) Parainfluenza 1 (PCR) (NotDetected) Parainfluenza 2 (PCR) (NotDetected) Parainfluenza 3 (PCR) (NotDetected) Parainfluenza 4 (PCR) (NotDetected) RSV (PCR) (NotDetected) Entero/Rhino (PCR) (NotDetected) 02/02/23 02/02/23 02/02/23 Range/Units 01:44 02:59 07:45 WBC (4.8-10.8) K/ul RBC (4.20-5.40) M/uL Hgb (12.0-16.0) g/dl Hct (37.0-47.0) % MCV (80.0-100.0) fL MCH (25.0-34.0) pg MCHC (32.0-36.0) g/dL RDW Std Deviation (36.4-46.3) fL RDW Coeff of Louis (11.5-14.5) % Plt Count (130-400) K/uL MPV (9.4-12.4) fL Immature Gran % (Auto) % Neut % (Auto) % Lymph % (Auto) % Christian % (Auto) % Eos % (Auto) % Baso % (Auto) % Neut # (Auto) (1.40-6.50) K/uL Lymph # (Auto) (1.20-3.40) K/uL Christian # (Auto) (0.11-0.59) K/uL Eos # (Auto) (0.00-0.50) K/uL Baso # (Auto) (0.00-0.20) K/uL Immature Gran # (Auto) (0.01-0.20) K/uL PT (9.0-12.0) Seconds INR (0.9-1.1) Sodium (136-145) mmol/L Potassium (3.5-5.1) mmol/L Chloride (98-107) mmol/L Carbon Dioxide (21-32) mmol/L Anion Gap (3-11) BUN (6-23) mg/dl Creatinine (0.6-1.2) mg/dl Est Cr Clr Drug Dosing ml/min Est GFR ( Amer) ml/min Est GFR (Non-Af Amer) ml/min BUN/Creatinine Ratio (10-20) Glucose (70-99(Fasting)) mg/dl POC Glucose 121 H (70-99) mg/dl Estimat Average Glucose mg/dl Hemoglobin A1c (4.5-5.6) % Lactate 1.2 (0.4-2.0) mmol/L Calcium (8.6-10.3) mg/dl Total Bilirubin (0.2-1.0) mg/dl AST (13-39) U/L ALT (7-52) U/L Alkaline Phosphatase (34-104) U/L Troponin I High Sens (0-14) pg/ml Total Protein (6.0-8.3) gm/dl Albumin (3.4-5.0) gm/dl Globulin (2.5-4.0) gm/dl Albumin/Globulin Ratio (0.9-2) Lipase (11-82) U/L Procalcitonin (0-0.5) ng/ml Urine Color Urine Appearance (Clear) Urine pH (4.5-7.5) Ur Specific [place] (1.000-1.030) Urine Protein (Negative) Urine Glucose (UA) (Negative) Urine Ketones (Negative) Urine Blood (Negative) Urine Nitrite (Negative) Urine Bilirubin (Negative) Urine Urobilinogen (Negative) Ur Leukocyte Esterase (Negative) Adenovirus (PCR) Not Detected (NotDetected) Anaplasma Smear Babesia Smear B. pertussis DNA (PCR) Not Detected (NotDetected) B.parapertussis DNA PCR Not Detected (NotDetected) Lyme Disease IgG Ab (Negative) Lyme Disease IgM Ab (Negative) C. pneumoniae DNA (PCR) Not Detected (NotDetected) Coronavirus OC43 (PCR) Not Detected (NotDetected) Coronavirus HKU1 (PCR) Not Detected (NotDetected) Coronavirus 229E (PCR) Not Detected (NotDetected) SARS-CoV-2 (PCR) Not Detected (NotDetected) Coronavirus NL63 (PCR) Not Detected (NotDetected) Human Metapneumovir PCR Not Detected (NotDetected) Influenza Type A (PCR) Not Detected (NotDetected) Influenza Type B (PCR) Not Detected (NotDetected) M. pneumoniae (PCR) Not Detected (NotDetected) Parainfluenza 1 (PCR) Not Detected (NotDetected) Parainfluenza 2 (PCR) Not Detected (NotDetected) Parainfluenza 3 (PCR) Not Detected (NotDetected) Parainfluenza 4 (PCR) Not Detected (NotDetected) RSV (PCR) Not Detected (NotDetected) Entero/Rhino (PCR) Not Detected (NotDetected) 02/02/23 02/02/23 02/02/23 Range/Units 11:35 17:08 20:47 WBC (4.8-10.8) K/ul RBC (4.20-5.40) M/uL Hgb (12.0-16.0) g/dl Hct (37.0-47.0) % MCV (80.0-100.0) fL MCH (25.0-34.0) pg MCHC (32.0-36.0) g/dL RDW Std Deviation (36.4-46.3) fL RDW Coeff of Louis (11.5-14.5) % Plt Count (130-400) K/uL MPV (9.4-12.4) fL Immature Gran % (Auto) % Neut % (Auto) % Lymph % (Auto) % Christian % (Auto) % Eos % (Auto) % Baso % (Auto) % Neut # (Auto) (1.40-6.50) K/uL Lymph # (Auto) (1.20-3.40) K/uL Christian # (Auto) (0.11-0.59) K/uL Eos # (Auto) (0.00-0.50) K/uL Baso # (Auto) (0.00-0.20) K/uL Immature Gran # (Auto) (0.01-0.20) K/uL PT (9.0-12.0) Seconds INR (0.9-1.1) Sodium (136-145) mmol/L Potassium (3.5-5.1) mmol/L Chloride (98-107) mmol/L Carbon Dioxide (21-32) mmol/L Anion Gap (3-11) BUN (6-23) mg/dl Creatinine (0.6-1.2) mg/dl Est Cr Clr Drug Dosing ml/min Est GFR ( Amer) ml/min Est GFR (Non-Af Amer) ml/min BUN/Creatinine Ratio (10-20) Glucose (70-99(Fasting)) mg/dl POC Glucose 119 H 100 H 102 H (70-99) mg/dl Estimat Average Glucose mg/dl Hemoglobin A1c (4.5-5.6) % Lactate (0.4-2.0) mmol/L Calcium (8.6-10.3) mg/dl Total Bilirubin (0.2-1.0) mg/dl AST (13-39) U/L ALT (7-52) U/L Alkaline Phosphatase (34-104) U/L Troponin I High Sens (0-14) pg/ml Total Protein (6.0-8.3) gm/dl Albumin (3.4-5.0) gm/dl Globulin (2.5-4.0) gm/dl Albumin/Globulin Ratio (0.9-2) Lipase (11-82) U/L Procalcitonin (0-0.5) ng/ml Urine Color Urine Appearance (Clear) Urine pH (4.5-7.5) Ur Specific [place] (1.000-1.030) Urine Protein (Negative) Urine Glucose (UA) (Negative) Urine Ketones (Negative) Urine Blood (Negative) Urine Nitrite (Negative) Urine Bilirubin (Negative) Urine Urobilinogen (Negative) Ur Leukocyte Esterase (Negative) Adenovirus (PCR) (NotDetected) Anaplasma Smear Babesia Smear B. pertussis DNA (PCR) (NotDetected) B.parapertussis DNA PCR (NotDetected) Lyme Disease IgG Ab (Negative) Lyme Disease IgM Ab (Negative) C. pneumoniae DNA (PCR) (NotDetected) Coronavirus OC43 (PCR) (NotDetected) Coronavirus HKU1 (PCR) (NotDetected) Coronavirus 229E (PCR) (NotDetected) SARS-CoV-2 (PCR) (NotDetected) Coronavirus NL63 (PCR) (NotDetected) Human Metapneumovir PCR (NotDetected) Influenza Type A (PCR) (NotDetected) Influenza Type B (PCR) (NotDetected) M. pneumoniae (PCR) (NotDetected) Parainfluenza 1 (PCR) (NotDetected) Parainfluenza 2 (PCR) (NotDetected) Parainfluenza 3 (PCR) (NotDetected) Parainfluenza 4 (PCR) (NotDetected) RSV (PCR) (NotDetected) Entero/Rhino (PCR) (NotDetected) 02/03/23 02/03/23 02/03/23 Range/Units 05:58 05:58 05:58 WBC 3.72 L (4.8-10.8) K/ul RBC 3.56 L (4.20-5.40) M/uL Hgb 9.7 L (12.0-16.0) g/dl Hct 30.6 L (37.0-47.0) % MCV 86.0 (80.0-100.0) fL MCH 27.2 (25.0-34.0) pg MCHC 31.7 L (32.0-36.0) g/dL RDW Std Deviation 46.6 H (36.4-46.3) fL RDW Coeff of Louis 14.6 H (11.5-14.5) % Plt Count 118 L (130-400) K/uL MPV 10.0 (9.4-12.4) fL Immature Gran % (Auto) 0.3 % Neut % (Auto) 52.1 % Lymph % (Auto) 35.2 % Christian % (Auto) 11.3 % Eos % (Auto) 0.8 % Baso % (Auto) 0.3 % Neut # (Auto) 1.94 (1.40-6.50) K/uL Lymph # (Auto) 1.31 (1.20-3.40) K/uL Christian # (Auto) 0.42 (0.11-0.59) K/uL Eos # (Auto) 0.03 (0.00-0.50) K/uL Baso # (Auto) 0.01 (0.00-0.20) K/uL Immature Gran # (Auto) 0.01 (0.01-0.20) K/uL PT (9.0-12.0) Seconds INR (0.9-1.1) Sodium 140 (136-145) mmol/L Potassium 3.8 (3.5-5.1) mmol/L Chloride 109 H (98-107) mmol/L Carbon Dioxide 26 (21-32) mmol/L Anion Gap 5 (3-11) BUN 8 (6-23) mg/dl Creatinine 0.67 (0.6-1.2) mg/dl Est Cr Clr Drug Dosing 95.4 ml/min Est GFR ( Amer) 108.4 ml/min Est GFR (Non-Af Amer) 93.5 ml/min BUN/Creatinine Ratio 11.9 (10-20) Glucose 102 H (70-99(Fasting)) mg/dl POC Glucose (70-99) mg/dl Estimat Average Glucose 120 mg/dl Hemoglobin A1c 5.8 H (4.5-5.6) % Lactate (0.4-2.0) mmol/L Calcium 7.7 L (8.6-10.3) mg/dl Total Bilirubin 0.6 (0.2-1.0) mg/dl AST 19 (13-39) U/L ALT 40 (7-52) U/L Alkaline Phosphatase 57 (34-104) U/L Troponin I High Sens (0-14) pg/ml Total Protein 5.7 L (6.0-8.3) gm/dl Albumin 3.3 L (3.4-5.0) gm/dl Globulin 2.4 L (2.5-4.0) gm/dl Albumin/Globulin Ratio 1.4 (0.9-2) Lipase 42 (11-82) U/L Procalcitonin (0-0.5) ng/ml Urine Color Urine Appearance (Clear) Urine pH (4.5-7.5) Ur Specific [place] (1.000-1.030) Urine Protein (Negative) Urine Glucose (UA) (Negative) Urine Ketones (Negative) Urine Blood (Negative) Urine Nitrite (Negative) Urine Bilirubin (Negative) Urine Urobilinogen (Negative) Ur Leukocyte Esterase (Negative) Adenovirus (PCR) (NotDetected) Anaplasma Smear Babesia Smear B. pertussis DNA (PCR) (NotDetected) B.parapertussis DNA PCR (NotDetected) Lyme Disease IgG Ab (Negative) Lyme Disease IgM Ab (Negative) C. pneumoniae DNA (PCR) (NotDetected) Coronavirus OC43 (PCR) (NotDetected) Coronavirus HKU1 (PCR) (NotDetected) Coronavirus 229E (PCR) (NotDetected) SARS-CoV-2 (PCR) (NotDetected) Coronavirus NL63 (PCR) (NotDetected) Human Metapneumovir PCR (NotDetected) Influenza Type A (PCR) (NotDetected) Influenza Type B (PCR) (NotDetected) M. pneumoniae (PCR) (NotDetected) Parainfluenza 1 (PCR) (NotDetected) Parainfluenza 2 (PCR) (NotDetected) Parainfluenza 3 (PCR) (NotDetected) Parainfluenza 4 (PCR) (NotDetected) RSV (PCR) (NotDetected) Entero/Rhino (PCR) (NotDetected) 02/03/23 02/03/23 02/03/23 Range/Units 07:38 11:53 16:44 WBC (4.8-10.8) K/ul RBC (4.20-5.40) M/uL Hgb (12.0-16.0) g/dl Hct (37.0-47.0) % MCV (80.0-100.0) fL MCH (25.0-34.0) pg MCHC (32.0-36.0) g/dL RDW Std Deviation (36.4-46.3) fL RDW Coeff of Louis (11.5-14.5) % Plt Count (130-400) K/uL MPV (9.4-12.4) fL Immature Gran % (Auto) % Neut % (Auto) % Lymph % (Auto) % Christian % (Auto) % Eos % (Auto) % Baso % (Auto) % Neut # (Auto) (1.40-6.50) K/uL Lymph # (Auto) (1.20-3.40) K/uL Christian # (Auto) (0.11-0.59) K/uL Eos # (Auto) (0.00-0.50) K/uL Baso # (Auto) (0.00-0.20) K/uL Immature Gran # (Auto) (0.01-0.20) K/uL PT (9.0-12.0) Seconds INR (0.9-1.1) Sodium (136-145) mmol/L Potassium (3.5-5.1) mmol/L Chloride (98-107) mmol/L Carbon Dioxide (21-32) mmol/L Anion Gap (3-11) BUN (6-23) mg/dl Creatinine (0.6-1.2) mg/dl Est Cr Clr Drug Dosing ml/min Est GFR ( Amer) ml/min Est GFR (Non-Af Amer) ml/min BUN/Creatinine Ratio (10-20) Glucose (70-99(Fasting)) mg/dl POC Glucose 117 H 99 96 (70-99) mg/dl Estimat Average Glucose mg/dl Hemoglobin A1c (4.5-5.6) % Lactate (0.4-2.0) mmol/L Calcium (8.6-10.3) mg/dl Total Bilirubin (0.2-1.0) mg/dl AST (13-39) U/L ALT (7-52) U/L Alkaline Phosphatase (34-104) U/L Troponin I High Sens (0-14) pg/ml Total Protein (6.0-8.3) gm/dl Albumin (3.4-5.0) gm/dl Globulin (2.5-4.0) gm/dl Albumin/Globulin Ratio (0.9-2) Lipase (11-82) U/L Procalcitonin (0-0.5) ng/ml Urine Color Urine Appearance (Clear) Urine pH (4.5-7.5) Ur Specific [place] (1.000-1.030) Urine Protein (Negative) Urine Glucose (UA) (Negative) Urine Ketones (Negative) Urine Blood (Negative) Urine Nitrite (Negative) Urine Bilirubin (Negative) Urine Urobilinogen (Negative) Ur Leukocyte Esterase (Negative) Adenovirus (PCR) (NotDetected) Anaplasma Smear Babesia Smear B. pertussis DNA (PCR) (NotDetected) B.parapertussis DNA PCR (NotDetected) Lyme Disease IgG Ab (Negative) Lyme Disease IgM Ab (Negative) C. pneumoniae DNA (PCR) (NotDetected) Coronavirus OC43 (PCR) (NotDetected) Coronavirus HKU1 (PCR) (NotDetected) Coronavirus 229E (PCR) (NotDetected) SARS-CoV-2 (PCR) (NotDetected) Coronavirus NL63 (PCR) (NotDetected) Human Metapneumovir PCR (NotDetected) Influenza Type A (PCR) (NotDetected) Influenza Type B (PCR) (NotDetected) M. pneumoniae (PCR) (NotDetected) Parainfluenza 1 (PCR) (NotDetected) Parainfluenza 2 (PCR) (NotDetected) Parainfluenza 3 (PCR) (NotDetected) Parainfluenza 4 (PCR) (NotDetected) RSV (PCR) (NotDetected) Entero/Rhino (PCR) (NotDetected) 02/04/23 02/04/23 02/04/23 Range/Units 00:13 06:12 07:23 WBC 4.37 L (4.8-10.8) K/ul RBC 3.56 L (4.20-5.40) M/uL Hgb 9.8 L (12.0-16.0) g/dl Hct 30.5 L (37.0-47.0) % MCV 85.7 (80.0-100.0) fL MCH 27.5 (25.0-34.0) pg MCHC 32.1 (32.0-36.0) g/dL RDW Std Deviation 45.9 (36.4-46.3) fL RDW Coeff of [place] 14.6 H (11.5-14.5) % Plt Count 142 (130-400) K/uL MPV 10.6 (9.4-12.4) fL Immature Gran % (Auto) 0.2 % Neut % (Auto) 65.0 % Lymph % (Auto) 26.3 % Christian % (Auto) 6.4 % Eos % (Auto) 1.6 % Baso % (Auto) 0.5 % Neut # (Auto) 2.84 (1.40-6.50) K/uL Lymph # (Auto) 1.15 L (1.20-3.40) K/uL Christian # (Auto) 0.28 (0.11-0.59) K/uL Eos # (Auto) 0.07 (0.00-0.50) K/uL Baso # (Auto) 0.02 (0.00-0.20) K/uL Immature Gran # (Auto) 0.01 (0.01-0.20) K/uL PT (9.0-12.0) Seconds INR (0.9-1.1) Sodium (136-145) mmol/L Potassium (3.5-5.1) mmol/L Chloride (98-107) mmol/L Carbon Dioxide (21-32) mmol/L Anion Gap (3-11) BUN (6-23) mg/dl Creatinine (0.6-1.2) mg/dl Est Cr Clr Drug Dosing ml/min Est GFR ( Amer) ml/min Est GFR (Non-Af Amer) ml/min BUN/Creatinine Ratio (10-20) Glucose (70-99(Fasting)) mg/dl POC Glucose 99 89 (70-99) mg/dl Estimat Average Glucose mg/dl Hemoglobin A1c (4.5-5.6) % Lactate (0.4-2.0) mmol/L Calcium (8.6-10.3) mg/dl Total Bilirubin (0.2-1.0) mg/dl AST (13-39) U/L ALT (7-52) U/L Alkaline Phosphatase (34-104) U/L Troponin I High Sens (0-14) pg/ml Total Protein (6.0-8.3) gm/dl Albumin (3.4-5.0) gm/dl Globulin (2.5-4.0) gm/dl Albumin/Globulin Ratio (0.9-2) Lipase (11-82) U/L Procalcitonin (0-0.5) ng/ml Urine Color Urine Appearance (Clear) Urine pH (4.5-7.5) Ur Specific [place] (1.000-1.030) Urine Protein (Negative) Urine Glucose (UA) (Negative) Urine Ketones (Negative) Urine Blood (Negative) Urine Nitrite (Negative) Urine Bilirubin (Negative) Urine Urobilinogen (Negative) Ur Leukocyte Esterase (Negative) Adenovirus (PCR) (NotDetected) Anaplasma Smear Babesia Smear B. pertussis DNA (PCR) (NotDetected) B.parapertussis DNA PCR (NotDetected) Lyme Disease IgG Ab (Negative) Lyme Disease IgM Ab (Negative) C. pneumoniae DNA (PCR) (NotDetected) Coronavirus OC43 (PCR) (NotDetected) Coronavirus HKU1 (PCR) (NotDetected) Coronavirus 229E (PCR) (NotDetected) SARS-CoV-2 (PCR) (NotDetected) Coronavirus NL63 (PCR) (NotDetected) Human Metapneumovir PCR (NotDetected) Influenza Type A (PCR) (NotDetected) Influenza Type B (PCR) (NotDetected) M. pneumoniae (PCR) (NotDetected) Parainfluenza 1 (PCR) (NotDetected) Parainfluenza 2 (PCR) (NotDetected) Parainfluenza 3 (PCR) (NotDetected) Parainfluenza 4 (PCR) (NotDetected) RSV (PCR) (NotDetected) Entero/Rhino (PCR) (NotDetected) 02/04/23 Range/Units 07:23 WBC (4.8-10.8) K/ul RBC (4.20-5.40) M/uL Hgb (12.0-16.0) g/dl Hct (37.0-47.0) % MCV (80.0-100.0) fL MCH (25.0-34.0) pg MCHC (32.0-36.0) g/dL RDW Std Deviation (36.4-46.3) fL RDW Coeff of [place] (11.5-14.5) % Plt Count (130-400) K/uL MPV (9.4-12.4) fL Immature Gran % (Auto) % Neut % (Auto) % Lymph % (Auto) % Christian % (Auto) % Eos % (Auto) % Baso % (Auto) % Neut # (Auto) (1.40-6.50) K/uL Lymph # (Auto) (1.20-3.40) K/uL Christian # (Auto) (0.11-0.59) K/uL Eos # (Auto) (0.00-0.50) K/uL Baso # (Auto) (0.00-0.20) K/uL Immature Gran # (Auto) (0.01-0.20) K/uL PT (9.0-12.0) Seconds INR (0.9-1.1) Sodium 140 (136-145) mmol/L Potassium 3.6 (3.5-5.1) mmol/L Chloride 109 H (98-107) mmol/L Carbon Dioxide 24 (21-32) mmol/L Anion Gap 7 (3-11) BUN 7 (6-23) mg/dl Creatinine 0.59 L (0.6-1.2) mg/dl Est Cr Clr Drug Dosing 108.4 ml/min Est GFR ( Amer) 113.1 ml/min Est GFR (Non-Af Amer) 97.5 ml/min BUN/Creatinine Ratio 11.9 (10-20) Glucose 90 (70-99(Fasting)) mg/dl POC Glucose (70-99) mg/dl Estimat Average Glucose mg/dl Hemoglobin A1c (4.5-5.6) % Lactate (0.4-2.0) mmol/L Calcium 7.6 L (8.6-10.3) mg/dl Total Bilirubin 0.7 (0.2-1.0) mg/dl AST 16 (13-39) U/L ALT 32 (7-52) U/L Alkaline Phosphatase 68 (34-104) U/L Troponin I High Sens (0-14) pg/ml Total Protein 5.9 L (6.0-8.3) gm/dl Albumin 3.4 (3.4-5.0) gm/dl Globulin 2.5 (2.5-4.0) gm/dl Albumin/Globulin Ratio 1.4 (0.9-2) Lipase 33 (11-82) U/L Procalcitonin (0-0.5) ng/ml Urine Color Urine Appearance (Clear) Urine pH (4.5-7.5) Ur Specific [place] (1.000-1.030) Urine Protein (Negative) Urine Glucose (UA) (Negative) Urine Ketones (Negative) Urine Blood (Negative) Urine Nitrite (Negative) Urine Bilirubin (Negative) Urine Urobilinogen (Negative) Ur Leukocyte Esterase (Negative) Adenovirus (PCR) (NotDetected) Anaplasma Smear Babesia Smear B. pertussis DNA (PCR) (NotDetected) B.parapertussis DNA PCR (NotDetected) Lyme Disease IgG Ab (Negative) Lyme Disease IgM Ab (Negative) C. pneumoniae DNA (PCR) (NotDetected) Coronavirus OC43 (PCR) (NotDetected) Coronavirus HKU1 (PCR) (NotDetected) Coronavirus 229E (PCR) (NotDetected) SARS-CoV-2 (PCR) (NotDetected) Coronavirus NL63 (PCR) (NotDetected) Human Metapneumovir PCR (NotDetected) Influenza Type A (PCR) (NotDetected) Influenza Type B (PCR) (NotDetected) M. pneumoniae (PCR) (NotDetected) Parainfluenza 1 (PCR) (NotDetected) Parainfluenza 2 (PCR) (NotDetected) Parainfluenza 3 (PCR) (NotDetected) Parainfluenza 4 (PCR) (NotDetected) RSV (PCR) (NotDetected) Entero/Rhino (PCR) (NotDetected) Diagnostic Findings ULTRASOUND RIGHT UPPER QUADRANT ABDOMEN CLINICAL HISTORY: Right upper quadrant abdominal pain. Abnormal hepatobiliary scan. COMPARISON STUDY: Abdominal CT dated 02/02/2023. Nuclear hepatobiliary scan dated 02/02/2023. TECHNIQUE: Real-time, grayscale, and color flow sonography of the right upper quadrant of the abdomen was performed. Images are reviewed in the transverse and longitudinal planes. FINDINGS: Liver: The liver is enlarged and demonstrates heterogeneous increased echotexture indicating steatosis. No significant intrahepatic biliary ductal dilatation is seen. The main portal vein is patent. Gallbladder: The gallbladder is distended, and the wall is mildly thickened measuring up to 3 mm. No shadowing gallstones are identified. No pericholecystic fluid is seen. A sonographic Ty's sign is reportedly present. The common bile duct is dilated, measuring up to 1.0 cm in diameter. Pancreas: Visualized portions of the pancreatic head and body are normal in appearance. Right kidney: Survey images of the right kidney demonstrate normal size and echotexture. There is no hydronephrosis. Ascites: None. IMPRESSION: 1. Abnormal gallbladder as above with a positive sonographic Ty's sign. No shadowing gallstones are identified. When correlated with yesterday's HIDA scan findings are highly suspicious for acute cholecystitis, which may be acalculus. Surgical assessment is advised. 2. The common bile duct is dilated measuring up to 1.0 cm diameter. Underlying choledocholithiasis is not excluded. 3. Hepatomegaly and hepatic steatosis. M hepatobiliary EF CLINICAL HISTORY: RUQ pain, elevated AST, Lipase COMPARISON STUDY: CT of the abdomen and pelvis February 02, 2023. TECHNIQUE: 5.5 mCi of technetium 99m Choletec was injected IV at 12:49 PM on February 02, 2023. Imaging of the abdomen was performed in the anterior projection at 60 minutes. No gallbladder activity was identified and therefore imaging was carried out for an additional 3 hours. FINDINGS: Hepatic uptake of radiotracer is prompt and homogeneous. No activity within the gallbladder was noted at 60 minutes. Imaging was carried out for additional 3 hours and no gallbladder activity is identified. This suggests cystic duct obstruction. IMPRESSION: No radiotracer within the gallbladder at 4 hours. This suggests cystic duct obstruction and favors acute cholecystitis. ACT 112: Negative or not required by law. Exam(s): CT ABDOMEN + PELVIS With Contrast IV Amt: 90 ML OPTIRAY 320 EXAM: CT Abdomen and Pelvis With Intravenous Contrast CLINICAL HISTORY: Reason for exam: epigastric pain. TECHNIQUE: Axial computed tomography images of the abdomen and pelvis with intravenous contrast. CTDI is 28.04 mGy and DLP is 1437.97 mGy-cm. Automated exposure control was utilized for the study. A dose lowering technique was utilized adhering to the principles of ALARA. CONTRAST: Patient received 90 ML OPTIRAY 320 of IV contrast COMPARISON: 02/12/2018. FINDINGS: Lung bases: Minimal bilateral lower lobe atelectasis. ABDOMEN: Liver: Mild diffuse fatty liver. Gallbladder and bile ducts: Unremarkable. No calcified stones. No ductal dilation. Pancreas: Unremarkable. No mass. No ductal dilation. Spleen: Unremarkable. No splenomegaly. Adrenals: Unremarkable. No mass. Kidneys and ureters: Unremarkable. No solid mass. No hydronephrosis. Stomach and bowel: Mild multilevel diverticulosis with no signs of diverticulitis. No obstruction. PELVIS: Appendix: Normal appendix. Bladder: Unremarkable. No mass. Reproductive: Unremarkable as visualized. ABDOMEN and PELVIS: Intraperitoneal space: Unremarkable. No free air. No significant fluid collection. Bones/joints: Multilevel degenerative disease of the spine. No acute fracture. No dislocation. Soft tissues: Unremarkable. Vasculature: Unremarkable. No abdominal aortic aneurysm. Lymph nodes: Unremarkable. No enlarged lymph nodes. IMPRESSION: 1. Diverticulosis with no signs of diverticulitis. No acute appendicitis or bowel obstruction. 2. Mild diffuse fatty liver, otherwise unremarkable abdominal viscera.
[2023-02-04] MEDS ORDERED: BUPIVACAINE 0.5 % 5 MG/1 ML MPF 30ML VIAL ONE (10:31)
[2023-02-04] MEDS ORDERED: BACITRACIN OINT 14 GM TUBE ONE (10:31)
[2023-02-04] MEDS ORDERED: LIDOCAINE 1% LOCAL 20 ML VIAL ONE (10:31)
[2023-02-04] MEDS ORDERED: fentaNYL citrate PF 100 MCG/2 ML VIAL ONE ×2 (10:42→12:56)
[2023-02-04] MEDS ORDERED: DEXAMETHASONE SOD INJ 4 MG/ML VIAL ONE (10:44)
[2023-02-04] MEDS ORDERED: ONDANSETRON INJ 2 MG/ML 2 ML VIAL ONE ×2 (10:44→12:46)
[2023-02-04] MEDS ORDERED: ROCURONIUM BROMIDE 10 MG/ML 5 ML VIAL IV ONE (10:44)
[2023-02-04] MEDS ORDERED: PROPOFOL IV EMULSION 10 MG/ML 20 ML VIAL IV ONE (10:44)
[2023-02-04] MEDS ORDERED: LIDOCAINE 2% 2 ML VIAL/AMP(20MG/ML) INFIL ONE ×2 (10:44)
[2023-02-04] MEDS: LACTATED RINGER'S 1,000 ML IV SCH ×2 (10:46→19:17)
[2023-02-04] MEDS ORDERED: ATROPINE SULFATE 0.1 MG/ML 10ML SYR IV PRN (10:57)
[2023-02-04] MEDS ORDERED: ONDANSETRON INJ 2 MG/ML 2 ML VIAL IV PRN (10:57)
[2023-02-04] MEDS ORDERED: PROMETHAZINE HCL 6.25 MG in SODIUM CHLORIDE 0.9% 50 ML IV PRN (10:57)
[2023-02-04] MEDS ORDERED: ePHEDrine sulfate 50 MG/ML AMP IV PRN (10:57)
--- NOTE | 2023-02-04 10:59 | Anesthesiology Consultation ---
Date of Service February 04, 2023 Assessment & Plan Chart Review Chart Review: Acceptable Risk for Surgery Consults Requested none ASA ASA3 Proposed Anesthesia Anesthesia Type: General Risk / Benefits Reviewed With: PT / POA / Parent / Guardian, Accepts Plan and Informed Consent Obtained History Surgery Operation Date: 02/04/23 07:00 Proposed Procedures p Laparoscopic Cholecystectomy - Coco Davidson MD Height/Weight Height: 5 ft 2 in Weight: 100.7 kg Allergies Allergy/AdvReac Type Severity Reaction Status Date / Time hydromorphone [From Dilaudid] AdvReac Severe Migraine Verified 02/02/23 00:53 morphine AdvReac Severe HEADACHE Verified 02/02/23 00:53 Medications Home Medications Medication Instructions Recorded Confirmed Last Taken lorazepam 0.5 mg tablet 0.5 mg PO UD PRN Anxiety #30 tabs 12/28/18 02/02/23 Unknown meclizine 25 mg tablet 12.5 - 25 mg PO UD PRN Vertigo #30 03/06/19 02/02/23 10/14/20 09:00 tabs cyclobenzaprine 5 mg tablet 5 mg PO TID PRN muscle spasm #30 12/13/19 02/02/23 Unknown tabs dicyclomine 20 mg tablet 20 mg PO QID PRN diarrhea #120 tabs 11/13/20 02/02/23 Unknown naproxen 500 mg tablet 500 mg PO BID PRN pain #14 tabs 05/13/21 02/02/23 10/31/22 blood-glucose meter (OneTouch #1 ea 08/11/21 01/20/23 Unknown Ultra2 Meter kit) pen needle, diabetic 32 gauge x #100 ea 11/04/21 01/20/23 Unknown 532" (BD Manju 2nd Gen Pen Needle) cholecalciferol (vitamin D3) 125 125 mcg PO QAM 11/17/21 02/02/23 02/01/23 mcg (5,000 unit) capsule alendronate 5 mg tablet 5 mg PO WK 03/23/22 02/02/23 01/31/23 lancets (BigTent DesignTouch UltraSoft #100 ea 04/19/22 01/20/23 Unknown Lancets) lisinopril 10 mg tablet 10 mg PO QAM #90 tabs 11/08/22 02/02/23 02/01/23 pantoprazole 40 mg tablet,delayed 40 mg PO QAM #90 tabs 11/08/22 02/02/23 02/01/23 release venlafaxine 75 mg capsule,extended 75 mg PO QAM #90 caps 11/08/22 02/02/23 02/01/23 release 24 hr atorvastatin 10 mg tablet 10 mg PO QPM 02/02/23 02/02/23 02/01/23 metformin 750 mg tablet,extended 750 mg PO QAM 02/02/23 02/02/23 02/01/23 release 24 hr semaglutide 1 mg/dose (4 mg/3 mL) 1 mg subcut WK 02/02/23 02/02/23 01/27/23 subcutaneous pen injector Active Medications Generic Name Dose Route Start Last Admin Trade Name Freq PRN Reason Stop Dose Admin Potassium Chloride/Sodium Chloride 20 meq in 1,000 mls @ 80 mls/hr 02/02/23 06:00 02/04/23 09:10 Normal Saline W/20 Meq Kcl IV 03/04/23 05:59 80 mls/hr .[id number] ALMITA Administration Protocol Pantoprazole Sodium 40 mg/ 10 mls @ 5 mls/min 02/03/23 11:00 02/03/23 10:16 Syringe IV 03/05/23 10:59 5 mls/min DAILY@1100 ALMITA Administration Acetaminophen 1,000 mg in 100 mls @ 400 mls/hr 02/02/23 20:06 02/04/23 00:04 Ofirmev IV 02/05/23 20:05 Infused Q8H PRN Infusion pain or fever Piperacillin Sod/Tazobactam 120 mls @ 30 mls/hr 02/03/23 12:00 02/04/23 09:08 Sod 4.5 gm/ Dextrose IV 02/13/23 11:59 Infused Q8H ALMITA Infusion Protocol Lactated Ringer's 1,000 mls @ 15 mls/hr 02/04/23 10:45 02/04/23 10:46 Lr IV 03/06/23 10:44 15 mls/hr .Q24H ALMITA Administration Insulin Aspart 0 units 02/03/23 18:00 02/04/23 06:16 Insulin Aspart Per Unit Charge SC 03/05/23 17:59 Not Given Q6 ALMITA Ondansetron HCl 4 mg 02/02/23 05:33 02/03/23 21:51 Ondansetron Inj 2 Mg/Ml 2 Ml Vial IV 03/04/23 05:32 4 mg Q6H PRN Administration Nausea NPO Date Last Intake of Fluids: 02/01/23 Date Last Intake of Solids: 02/01/23 Past Medical History Medical History Common migraine without aura HX Depression Diabetes mellitus, type 2 NIDDM Diverticular disease hx Esophageal reflux Hepatic steatosis Hiatal hernia HTN (hypertension) Hyperlipidemia IBS (irritable bowel syndrome) Insomnia Severe sleep apnea cpap Vertigo HX Exercise / Class Metabolic Activity III < 4 Walking/Shop/Light housework Past Family History Family History Mother Lung cancer Heart valve replaced Stomach cancer Gallbladder disease Hypertension Kidney disease Lung disease Father Lung cancer Sister Hypertension Atrial fibrillation Ovarian cancer Brother Obstructive sleep apnea Atrial fibrillation Other No significant family history Denies family history of Prostate cancer Myocardial infarction Breast cancer Colorectal cancer Past Surgical History Surgical History History of colonoscopy History of esophagogastroduodenoscopy (EGD) History of tooth extraction Hx of arthroscopy of left knee Hx of cataract extraction RT/LT Hx of section x1 S/P ORIF (open reduction internal fixation) fracture left arm with hardware S/P reduction mammoplasty Tear of meniscus of left knee with surgical intervention Past Anesthesia History No Hx of Anesthesia Complications and No Family Hx of Anesthesia Complications History of PONV No Hx of PONV and No Hx of Motion Sickness Social History Smoking Status: Never smoker Do You Dip or Chew Tobacco: No Hx Alcohol Use: Yes Alcohol type: beer alcohol intake frequency: a few times a month Hx Substance Use: No substance use type: does not use Review of Systems ROS Unobtainable: All systems reviewed & are unremarkable except as noted in HPI & below Physical Exam Vital Signs Last Vital Signs Temp 37.1 C 02/04/23 10:22 Pulse 73 02/04/23 10:22 Resp 18 02/04/23 10:22 BP 134/72 02/04/23 10:22 Pulse Ox 96 02/04/23 10:22 O2 Del Method Room Air 02/04/23 10:22 Constitutional + morbidly obese; no acute distress ENMT Mouth: no TMJ abnormality Thyromental Distance: > or= 3.5 Finger Breadths Mallampati Class: II Neck normal visual inspection and trachea midline; neck extension not limited Respiratory normal respiratory effort Auscultation: lungs clear to auscultation bilaterally Cardiovascular Rate/Rhythm: regular rate and regular rhythm Heart Sounds: no murmur Musculoskeletal Spine: normal cervical ROM Extremities: full ROM of extremities Neurologic moves all extremities Psychiatric Orientation: alert and oriented x 3 Testing Laboratory Results 02/04/23 07:23 02/04/23 07:23 PT 11.0 Seconds (9.0-12.0) 02/02/23 00:00 INR 1.0 (0.9-1.1) 02/02/23 00:00 Hemoglobin A1c 5.8 % (4.5-5.6) H 02/03/23 05:58 Urine Color Yellow 02/02/23 00:00 Urine Appearance Slightly Cloudy (Clear) 02/02/23 00:00 Urine pH 6.0 (4.5-7.5) 02/02/23 00:00 Ur Specific [place] 1.010 (1.000-1.030) 02/02/23 00:00 Urine Protein Negative (Negative) 02/02/23 00:00 Urine Glucose (UA) Negative (Negative) 02/02/23 00:00 Urine Ketones Negative (Negative) 02/02/23 00:00 Urine Nitrite Negative (Negative) 02/02/23 00:00 Ur Leukocyte Esterase Negative (Negative) 02/02/23 00:00 02/02/23 02:59 Aerobic Blood Culture - Preliminary Blood No growth in Aerobic bottle after 48 hours. Anaerobic Blood Culture - Preliminary No growth in Anaerobic bottle after 48 hours. 02/02/23 03:09 Aerobic Blood Culture - Preliminary Blood No growth in Aerobic bottle after 48 hours. Anaerobic Blood Culture - Preliminary No growth in Anaerobic bottle after 48 hours. 02/04/23 02/04/23 02/04/23 10:27 06:12 00:13 POC Glucose 95 89 99 Electrocardiogram Date: 02/02/23 Findings: + NSR @
[2023-02-04] MEDS ORDERED: SODIUM CHLORIDE 0.9% PF 50 ML VIAL ONE (11:09)
[2023-02-04] MEDS ORDERED: OPTIRAY 320 100ml IV ONE (12:24)
[2023-02-04] MEDS ORDERED: SUGAMMADEX SODIUM 200 MG/2 ML VIAL IV ONE (12:40)
[2023-02-04] MEDS ORDERED: KETOROLAC 30 MG/ML VIAL ONE (12:42)
--- NOTE | 2023-02-04 12:58 | Post Operative Brief Note ---
Immediate Post Op Note v1 Date of Surgery February 04, 2023 Pre & Post Diagnosis Operation Date: 02/04/23 07:00 Pre-Op Diagnosis: acute Cholecystitis Post-Op Diagnosis: acute Cholecystitis I identified the patient and participated in the time-out.: Yes Procedure Operation Date: 02/04/23 07:00 Actual Procedures p Laparoscopic Cholecystectomy with Cholangiogram - Coco Davidson MD Surgeon Coco Davidson MD Water Softener Servicer Rakel Ho, Ayse Carlin, BECKI Estimated Blood Loss 20 Findings Consistent with Post-Op Diagnosis acute cholecystitis Fluids 900ml Specimens gallbladder Anesthesia Type General Complications none Disposition Accompanied Patient To Recovery: Yes
--- NOTE | 2023-02-04 13:25 | Operative Report ---
Post Operative Report Pre & Post Diagnosis Operation Date: 02/04/23 07:00 Pre-Op Diagnosis: acute Cholecystitis Post-Op Diagnosis: acute Cholecystitis I identified the patient and participated in the time-out.: Yes Procedure Operation Date: 02/04/23 07:00 Actual Procedures p Laparoscopic Cholecystectomy with Cholangiogram(Not Applicable) - Coco Davidson MD Surgeon Coco Davidson MD Clinic Lpn Rakel Ho, BECKI Taylor Estimated Blood Loss 20 Findings Consistent with Post-Op Diagnosis acute cholecystitis, patent on CBD Fluids 900ml Specimens gallbladder Drains none Anesthesia Type General Complications none Indications Patient is a 63 years old female who was admitted to the hospital with right upper quadrant pain. Patient abdominal ultrasound and a HIDA scan diagnosis acute cholecystitis. I recommend to do laparoscopy cholecystectomy possible cholangiogram possible open. I did talk to patient about benefits the risk and alternatives of the procedure. He indicated the risks making prepped but not limited such as a bleeding, infection, injury other organs, bile leak, may need ERCP, and incisional hernia. Patient understood. she signed informed consent. I answered ALL questions. Description of Procedure DETAILS OF PROCEDURE: After we identified the patient and verified the procedure, we brought the patient to the OR, put the patient in the supine position on the OR table. The patient received SCD on bilateral legs to prevent DVT. Also, patient received 4.5 grams zosyn IV for prophylactic antibiotic. The patient received general anesthesia without difficulty. The abdomen was prepped and draped in routine sterile fashion. After timeout, I injected the local anesthesia by using 1% lidocaine mixed with 0.5% Marcaine just above the umbilicus, then I made a small incision just above umbilicus, opened fascia, opened peritoneum. Under direct vision, put a Alexia trocar in, connected to CO2 to create pneumoperitoneum, flow rate at 6 liters per minute, pressure not more than 14 mmHg. Once we got nice pneumoperitoneum, we put a scopy in, looked around the abdomen, it shows normal finding on the liver; however, the gallbladder shows significant gallbladder wall inflammation on the gallbladder wall, edema and shows acute cholecystitis. Once we confirmed the diagnosis, we put another two 5 mm trocars on the right upper quadrant. one 11mm trocar place on epigastric area. Once all trocars in, we used the grasper to hold the base of gallbladder, put in the direction to the diaphragm, another grasper to hold the pouch of gallbladder, put a lateral to explore the triangle of Calot. critical view obtained. Once we identified the cystic duct, I put a 10 mm clap on distal cystic duct. based on 10 mm CBD, I decide to do cholangiogram. then i use scissor to cut half cystic duct. inserted catheter, and injected 50/50 contrast dye. then take X- ray, showing- patent CBD. remove cathter, then we used two 10 mm metal clips on the proximal cystic duct, then used a scissor for transection of cystic duct; rechecked and no bile leak and cystic artery was identified and mobilized. I put two 10 mm metal clips on the proximal cystic artery and one on the distal cystic artery and used a scissor for transection of cystic artery; rechecked, no active bleeding. Then, we used the Bovie to take down gallbladder from the liver bed and rechecked, no active bleeding, no bile leak from liver bed. Then, we removed gallbladder through the catch bag. Then, we reinserted the Alexia trocar in, connected to CO2 to create pneumoperitoneum, again looked around the abdomen, no active bleeding, no bile leak from liver bed. Then, we removed all trocars under direct vision. No active bleeding from the trocar sites. The pneumoperitoneum was released, then I closed the umbilical incision fascial layer by using 0 Vicryl [id number] x2, closed subcutaneous layer by using 2-0 Vicryl interrupted, closed skin by using 4-0 Vicryl continuous running, closed another two 5 mm trocar site skin only by using 4-0 Vicryl. clos epigastric incision fascia layer by use 0-icryl. Then, we put the dressing on. The patient tolerated the procedure well. All instrument, needle and sponge counts were correct x2 at the end of the case. The patient was transferred to recovery room in stable condition. The specimen was sent to pathology. After the procedure, I did talk to the patient about the OR finding and the procedure we did. Also, I gave patient postoperative care instruction, the patient understands. Dr. Knight and Ayse are necessary for this procedure, whose role was to hold the camera, retraction and exposure. I attest to the content of the Intraoperative Record and any orders documented therein. Any exceptions are noted below.
[2023-02-04] MEDS ORDERED: SODIUM CHLORIDE 0.9% 50 ML BAG ONE (13:39)
[2023-02-04] MEDS ORDERED: PROMETHAZINE HCL INJ 25 MG/ML 1 ML VIAL ONE (13:40)
[2023-02-04] MEDS: fentaNYL citrate PF 100 MCG/2 ML VIAL IV PRN ×4 (13:49→14:04)
--- NOTE | 2023-02-04 14:01 | Anesthesiology Progress Note ---
Date of Service February 04, 2023 Anesthesia Post Procedure Vital Signs Vital Signs: Temp Pulse Pulse Resp BP BP Pulse Ox 02/04/23 13:55 98.2 F 67 16 146/70 H 94 02/04/23 13:45 73 15 145/85 H 94 02/04/23 13:35 75 16 139/101 H 96 02/04/23 13:25 79 22 144/78 H 98 02/04/23 13:17 96.8 F L 72 12 146/68 H 97 02/04/23 10:22 98.8 F 73 18 134/72 96 02/04/23 07:10 98.2 F 68 16 124/75 96 02/03/23 22:45 89 20 143/85 H 100 02/03/23 15:46 98.2 F 67 18 110/59 L 97 O2 Del Method O2 Flow Rate 02/04/23 13:55 Nasal Cannula 3 02/04/23 13:45 Nasal Cannula 3 02/04/23 13:35 Nasal Cannula 3 02/04/23 13:25 Oxymask 6 02/04/23 13:17 Oxymask 6 02/04/23 10:22 Room Air 02/04/23 07:10 Room Air 02/03/23 22:45 Room Air 02/03/23 15:46 Room Air Pain Intensity Right Medial Abdomen: Pain Intensity: 7 Transfer of Care Handoff Completed per policy Notes Mental Status: alert / awake / arousable and participated in evaluation Patient Amnestic to Procedure: Yes Nausea / Vomiting: adequately controlled Pain: adequately controlled Airway Patency, RR, SpO2: stable & adequate BP & HR: stable & adequate Hydration State: stable & adequate Anesthetic Complications: no major complications apparent and Pt Satisfied with anesthetic care
--- NOTE | 2023-02-04 14:06 | Fluoroscopy Report ---
INTRAOPERATIVE RADIOGRAPH CLINICAL HISTORY: Laparoscopic cholecystectomy Fluoro time: 1 second Ka,r: 0.36 mGy FINDINGS: A single spot fluoroscopic image of the right upper quadrant is correlated with abdominal u ltrasound dated 02/03/2023. The gallbladder is surgically absent. There is smooth contrast opacificati on of the common bile duct appears mildly dilated. No intraluminal filling defects are clearly identi fied. There is smooth passage of contrast in the duodenum. IMPRESSION: Intraoperative cholangiogram image as above. Electronically signed by: Reginaldo Amin M.D. 02/04/2023 2:05 PM
[2023-02-04] MEDS ORDERED: DICYCLOMINE HCL 20 MG TAB PO PRN (14:38)
[2023-02-04] MEDS ORDERED: LORazepam 0.5 MG TAB PO PRN (14:38)
[2023-02-04] MEDS ORDERED: NAPROXEN 250 MG TAB PO PRN (14:38)
[2023-02-04] MEDS ORDERED: MECLIZINE HCL 25 MG TAB PO PRN (14:38)
[2023-02-04] MEDS ORDERED: CYCLOBENZAPRINE HCL 5 MG TAB PO PRN (14:38)
[2023-02-04] MEDS: PANTOprazole 40 MG in SYRINGE 0 ML IV SCH (14:51)
[2023-02-04] MEDS ORDERED: ACETAMINOPHEN 325 MG TAB PO PRN (15:19)
--- NOTE | 2023-02-04 15:34 | Hospitalist Progress Note ---
Date of Service February 04, 2023 Assessment & Plan (1) Cholecystitis: Plan: patient presented with fevers and abdominal pain on admission, since improve on IV Abx CTAP without clear acute pathology, mild fatty liver HIDA scan with evidence of cystic duct obstruction and likely acute cholecystitis, abdominal US also with evidence of acute cholecystitis, as well as 1cm CBD dilation She is now s/p lap viki General Surgery and GI consulted , appreciate recs Continue Zosyn for gram negative/anaerobic coverage (2) DM2 (diabetes mellitus, type 2): Plan: SSI ordered, adjust as needed with BSGs and when able to have PO (3) Hypertension: Plan: Holding lisinopril at this time, BP normotensive (4) Severe sleep apnea: Plan: CPAP HS (5) Esophageal reflux: Plan: Continue PPI IV Plan continue to monitor Admission and Anticipated Discharge Date Admission Date: February 02, 2023 Subjective patient seen and examined, still drowsy from anasthesia Review of Systems Review of Systems: unable to obtain Physical Exam Physical Exam: The patient is drowsy, obese HEENT--PERRL, EOMI, mucous membranes and oropharynx mildly dry Neck--supple. No JVD. No bruits. Thyroid normal, trachea midline, no adenopathy. Heart--normal S1 and S2. No murmurs, rubs or gallops. Lungs--clear bilaterally, no respiratory distress, no accessory muscle use. Abdomen--normal bowel sounds and soft. Mild epigastric and left sided abdominal pain Extremities--no cyanosis or clubbing. No edema. Dermatologic--normal skin turgor, normal color, no abnormal lymph nodes, no rash. Neurologic--cranial nerves II through XII grossly intact. Rheumatologic--normal range of motion. Psychiatric--unable to assess Results & Data Results & Data Vital Signs (Past 12 Hours) Vital Signs Temp Pulse Pulse Resp BP BP Pulse Ox 02/04/23 14:30 98.4 F 66 16 140/82 95 02/04/23 14:05 64 14 143/78 H 96 02/04/23 13:55 98.2 F 67 16 146/70 H 94 02/04/23 13:45 73 15 145/85 H 94 02/04/23 13:35 75 16 139/101 H 96 02/04/23 13:25 79 22 144/78 H 98 02/04/23 13:17 96.8 F L 72 12 146/68 H 97 02/04/23 10:22 98.8 F 73 18 134/72 96 02/04/23 07:10 98.2 F 68 16 124/75 96 O2 Del Method O2 Flow Rate 02/04/23 14:30 Room Air 02/04/23 14:05 Nasal Cannula 3 02/04/23 13:55 Nasal Cannula 3 02/04/23 13:45 Nasal Cannula 3 02/04/23 13:35 Nasal Cannula 3 02/04/23 13:25 Oxymask 6 02/04/23 13:17 Oxymask 6 02/04/23 10:22 Room Air 02/04/23 07:10 Room Air PG Care Time/CCT Total # of Minutes Spent Total Time Spent with Patient: Total time spent is greater than 50% in coordination of care (as documented) at patient's floor/unit and/or counseling patient: Coding Level of Care Code 61052 SUB INP/OBS CARE 2MIN Diagnoses Cholecystitis K81.9 DM2 (diabetes mellitus, type 2) E11.9 Hypertension I10 Severe sleep apnea G47.30 Esophageal reflux K21.9 Time Spent (min) 35
[2023-02-04] MEDS ORDERED: Nursing to Pharmacy Communication SCH (19:15)
[2023-02-04] MEDS ORDERED: ATORVASTATIN 10 MG TAB PO SCH (21:00)
[2023-02-04] MEDS: oxyCODONE/ACETAMINOPHEN 5mg/325mg TAB PO PRN (22:09)
[2023-02-05] MEDS: oxyCODONE/ACETAMINOPHEN 5mg/325mg TAB PO PRN ×3 (04:03→18:56)
[2023-02-05] MEDS: PIPERACILLIN/TAZOBACTAM 4.5 GM in DEXTROSE 5% 100 ML IV SCH ×2 (04:03→12:30)
--- NOTE | 2023-02-05 05:37 | Surgery Progress Note ---
Date of Service February 05, 2023 Assessment & Plan (1) Acute cholecystitis: Plan: Status post laparoscopic cholecystectomy on 02/04/2023 (postop day #1) Consider advancing diet later this morning Continue analgesics Continue antiemetics Check a.m. labs and available Continue antibiotics in the form of Zosyn Increase activity Encourage use of incentive spirometer Admission and Anticipated Discharge Date Admission Date: February 02, 2023 Supervising Physician Co-Signing Physician Notes I saw and examined this patient this am. Her am labs are good. She is without leukocytosis. LFTs are WNL. There are no electrolyte derangements. She has been afebrile and HD stable without concerns and she says her pain has been controlled on oral pain medications. Her diet is being advanced this am. She is good for discharge from a surgical standpoint once she tolerates her advanced diet with outpatient follow up with her surgeon Dr. Davidson. Subjective Patient is resting comfortably in bed and she reports an uneventful night. She notes that since her surgery she has passed flatus and she has tolerated clear liquid diet without any nausea or vomiting or exacerbation of abdominal pain. She denies any shortness of breath. She denies any fevers, shakes, or chills. Physical Exam Gastrointestinal (Abdomen): Abdomen is soft and nondistended. Surgical incisions are covered with dressings that are clean, dry, and intact. Patient has minimal pain with palpations over her surgical incisions. Bowel sounds are present. Results & Data Vital Signs (Past 12 Hours) Vital Signs Temp Pulse Resp BP BP Pulse Ox O2 Del Method 02/05/23 03:58 36.6 C 63 16 114/75 96 Room Air 02/04/23 22:30 36.6 C 63 16 122/75 97 Room Air 02/04/23 19:32 36.9 C 65 16 133/73 96 Room Air PG Care Time/CCT Total # of Minutes Spent Total Time Spent with Patient: Total time spent is greater than 50% in coordination of care (as documented) at patient's floor/unit and/or counseling patient: Coding Level of Care Code None Diagnoses Acute cholecystitis K81.0
[2023-02-05] MEDS: NSS + 20MEQ KCL 20 MEQ/1,000 ML BAG IV SCH (06:03)
[2023-02-05 08:39] LABS: Basophils # (auto) 0.01 K/uL (0.00-0.20); Basophils % (auto) 0.2 %; Eosinophils # (auto) 0.01 K/uL (0.00-0.50); Eosinophils % (auto) 0.2 %; Hematocrit (blood only) 29.4 % (37.0-47.0); Hemoglobin 9.7 g/dl (12.0-16.0); Immature Granulocytes # (auto) 0.01 K/uL (0.01-0.20); Immature Granulocytes % (auto) 0.2 %; Lymphocytes # (auto) 1.25 K/uL (1.20-3.40); Lymphocytes % (auto) 18.8 %; Mean Corpuscular Hemoglobin 27.9 pg (25.0-34.0); Mean Corpuscular Volume 84.5 fL (80.0-100.0); Mean Platelet Volume 10.8 fL (9.4-12.4); Monocytes % (auto) 7.5 %; Neutrophils # (auto) 4.86 K/uL (1.40-6.50); Neutrophils % (auto) 73.1 %; Platelet Count 164 K/uL (130-400); RDW Coefficient of Variation 14.8 % (11.5-14.5); RDW Standard Deviation 45.8 fL (36.4-46.3); Red Blood Count 3.48 M/uL (4.20-5.40); White Blood Count 6.64 K/ul (4.8-10.8)
[2023-02-05] MEDS ORDERED: metFORMIN HCL ER 500 MG TABCR PO SCH (09:00)
[2023-02-05] MEDS ORDERED: CHOLECALCIFEROL 5,000 UNITS 125 MCG TAB PO SCH (09:00)
[2023-02-05] MEDS ORDERED: PANTOprazole 40 MG TAB PO SCH (09:00)
[2023-02-05] MEDS ORDERED: VENLAFAXINE HCL XR 75 MG CAPXR PO SCH (09:00)
[2023-02-05] MEDS ORDERED: lisinopril 10 MG TAB PO SCH (09:00)
[2023-02-05] MEDS: INSULIN ASPART PER UNIT CHARGE SC SCH ×3 (09:11→17:20)
[2023-02-05 09:16] LABS: Albumin Globulin Ratio 1.4 (0.9-2); Albumin Level 3.4 gm/dl (3.4-5.0); BUN Creatinine Ratio 11.6 (10-20); Bilirubin,Total 0.7 mg/dl (0.2-1.0); Calcium 7.5 mg/dl (8.6-10.3); Creatinine Clr Calc Pharmacy 92.7 ml/min; Est GFR (African American) 107.4 ml/min; Est GFR (Non-African American) 92.6 ml/min; Globulin 2.4 gm/dl (2.5-4.0); Potassium 4.3 mmol/L (3.5-5.1); Total Protein 5.8 gm/dl (6.0-8.3)
[2023-02-05] MEDS: PANTOprazole 40 MG in SYRINGE 0 ML IV SCH (12:30)
--- NOTE | 2023-02-05 13:32 | Hospitalist Progress Note ---
Date of Service February 05, 2023 Assessment & Plan (1) Cholecystitis: Plan: patient presented with fevers and abdominal pain on admission, since improve on IV Abx CTAP without clear acute pathology, mild fatty liver HIDA scan with evidence of cystic duct obstruction and likely acute cholecystitis, abdominal US also with evidence of acute cholecystitis, as well as 1cm CBD dilation She is now day 1 s/p lap viki General Surgery and GI consulted , appreciate recs Continue Zosyn for gram negative/anaerobic coverage continue diet as tolerated (2) DM2 (diabetes mellitus, type 2): Plan: SSI ordered, adjust as needed with BSGs and when able to have PO (3) Hypertension: Plan: Holding lisinopril at this time, BP normotensive (4) Severe sleep apnea: Plan: CPAP HS (5) Esophageal reflux: Plan: Continue PPI IV Plan hopefully d/c when ok by surgery Admission and Anticipated Discharge Date Admission Date: February 02, 2023 Subjective patient seen and examined, stable post surgery, tolerating diet Review of Systems Review of Systems: All systems reviewed are negative, apart from the ones contained in the history. Physical Exam Physical Exam: The patient is awake, alert and oriented 3, well developed and well nourished, normocephalic and atraumatic, lying in bed and in no acute distress. HEENT--PERRL, EOMI, mucous membranes and oropharynx mildly dry Neck--supple. No JVD. No bruits. Thyroid normal, trachea midline, no adenopat hy. Heart--normal S1 and S2. No murmurs, rubs or gallops. Lungs--clear bilaterally, no respiratory distress, no accessory muscle use. Abdomen--normal bowel sounds and soft. Mild epigastric and left sided abdominal pain Extremities--no cyanosis or clubbing. No edema. Dermatologic--normal skin turgor, normal color, no abnormal lymph nodes, no rash. Neurologic--cranial nerves II through XII grossly intact. Rheumatologic--normal range of motion. Psychiatric--normal affect. Results & Data Results & Data Vital Signs (Past 12 Hours) Vital Signs Temp Pulse Resp BP Pulse Ox O2 Del Method 02/05/23 10:44 97.7 F 82 16 133/76 97 Room Air 02/05/23 07:38 97.7 F 55 L 16 118/75 95 Room Air 02/05/23 03:58 97.9 F 63 16 114/75 96 Room Air PG Care Time/CCT Total # of Minutes Spent Total Time Spent with Patient: Total time spent is greater than 50% in coordination of care (as documented) at patient's floor/unit and/or counseling patient: Coding Level of Care Code 67251 SUB INP/OBS CARE 2/35MIN Diagnoses Cholecystitis K81.9 DM2 (diabetes mellitus, type 2) E11.9 Hypertension I10 Severe sleep apnea G47.30 Esophageal reflux K21.9 Time Spent (min) 35
[2023-02-05 14:03] LABS: Babesia microti DNA Not Detected (Not Detected)
--- NOTE | 2023-02-05 18:02 | Discharge Summary ---
Date of Service February 05, 2023 Admission HPI Per Admitting Provider The patient is a 63-year-old female with a past medical history including hypertension, diabetes mellitus, ELVIRA requiring CPAP, hyperlipidemia, GERD, depression, hepatic steatosis and common migraine without aura. Patient presents emergency department with fever, generalized malaise, epigastric pain radiating to her back, and nausea without vomiting. CT scan of abdomen and pelvis showed mild diffuse fatty liver. Significant abnormal laboratories: ALT 74, lipase 151 and glucose 125 Principal Diagnosis cholecystectomy for cholecystitis Discharge Exam pt was discharged by surgery attending Discharge Data Allergies Allergy/AdvReac Type Severity Reaction Status Date / Time hydromorphone [From Dilaudid] AdvReac Severe Migraine Verified 02/02/23 00:53 morphine AdvReac Severe HEADACHE Verified 02/02/23 00:53 Consultations 02/02/23 02:57 ED Decision to Admit Stat 02/02/23 18:47 Consult General Surgery Routine 02/02/23 18:49 Consult Gastroenterology Routine Procedures Performed Operation Date: 02/04/23 07:00 Actual Procedures p Laparoscopic Cholecystectomy with Cholangiogram(Not Applicable) - Coco Davidson MD Ordered Studies 02/02/23 00:36 CT Abd and Pelvis [CT abd pelvis IV con only] Stat 02/03/23 11:44 US abdomen limited Routine 02/04/23 [place] cholangiogram OR Routine Hospital Course (1) Cholecystitis: patient presented with fevers and abdominal pain on admission, since improve on IV Abx CTAP without clear acute pathology, mild fatty liver HIDA scan with evidence of cystic duct obstruction and likely acute cholecystitis, abdominal US also with evidence of acute cholecystitis, as well as 1cm CBD dilation s/p lap viki 02/04/23 General Surgery and GI consulted , appreciate recs discharged pt in afternoon of 02/05/23 continue diet as tolerated (2) DM2 (diabetes mellitus, type 2): resume home regimen (3) Hypertension: resume lisinopril (4) Severe sleep apnea: CPAP HS (5) Esophageal reflux: Total Time Total Time Spent Total Time Spent (In Minutes): less than 30 minutes Discharge Plan Discharge Items Patient Disposition: Home - Self-Care Reason For Visit: EPIGASTRIC / RUQ PAIN Discharge Diagnosis: cholecystitis cholecystectomy Activity: Per Instructions section Non-emergency contact: Primary Care Provider Follow-up/Referrals: Gisell Massey MD [Primary Care Provider] - Diet: Low Fat Addtl Attending Provider Instructions: follow up with pcp Addtl [employer] Provider Instructions: Post-Surgical ~Discharge Instructions Activity Recommendations: - lifting limitation: (20 pounds for 3-4 weeks), - exercise/sex/sports limit: (nonstrenuous for 2 weeks), - driving or machine use limit: (none for 1 week or until pain free and no longer taking narcotic pain medication), - Shower/bathe limit: (october shower beginning Tuesday) Diet: - Resume previous diet SPECIAL CARE INSTRUCTIONS: - May shower o Tuesday. Sponge bath and wash hair in meantime. On Tuesday, remove outer dressings and shower. Let water run over area and pat dry. - Leave steri strips on for one week and then remove. - Call the surgeon's office with any questions or concerns - - (ex. temperature higher than 101 degrees F, excessive bleeding or pain). MEDICATIONS: - Resume previous medications unless instructed otherwise by your surgeon. - May alternate extra strength Tylenol and Ibuprofen as needed for mild to moderate pain -650 mg Tylenol every 6 hours as needed - Ibuprofen 600 mg every 6 hours as needed (Take with food) FOLLOW UP VISIT: - If not already scheduled, please call the office to schedule a two week follow-up appointment. Office number Pending Studies at Discharge: Yes (gallbladder pathology, will be reviewed at postop visit) Stand-Alone Forms: [facility], Smoking Cessation Medications and DC Order Prescriptions: Continued dicyclomine 20 mg tablet 20 mg PO QID PRN (Reason: diarrhea) Qty: 120 2RF (DME) pen needle, diabetic [BD Manju 2nd Gen Pen Needle] 32 gauge x 5/32" needle See Rx Instructions .Route Qty: 100 5RF Rx Instructions: USE ONCE DAILY WITH INSULIN; DX CODE- E11.9 (DME) lancets [OneTouch UltraSoft Lancets] Misc See Rx Instructions .Route Qty: 100 3RF Rx Instructions: TEST TWICE DAILY lisinopril 10 mg tablet 10 mg PO QAM Qty: 90 1RF Rx Instructions: TAKE 1 TABLET EVERY MORNING venlafaxine 75 mg capsule,extended release 24hr 75 mg PO QAM Qty: 90 1RF Rx Instructions: TAKE 1 CAPSULE EVERY MORNING pantoprazole 40 mg tablet,delayed release (DR/EC) 40 mg PO QAM Qty: 90 1RF Rx Instructions: TAKE 1 TABLET EVERY MORNING lorazepam 0.5 mg tablet 0.5 mg PO UD PRN (Reason: Anxiety) Qty: 30 meclizine 25 mg tablet 12.5 - 25 mg PO UD PRN (Reason: Vertigo) Qty: 30 (DME) blood-glucose meter [Candid ioTouch Ultra2 Meter] Kit See Rx Instructions .Route Qty: 1 0RF Rx Instructions: TEST TWICE DAILY cholecalciferol (vitamin D3) 125 mcg (5,000 unit) capsule 125 mcg PO QAM alendronate 5 mg tablet 5 mg PO WK Rx Instructions: MONDAYS cyclobenzaprine 5 mg tablet 5 mg PO TID PRN (Reason: muscle spasm) Qty: 30 0RF naproxen 500 mg tablet 500 mg PO BID PRN (Reason: pain) Qty: 14 1RF atorvastatin 10 mg tablet 10 mg PO QPM Rx Instructions: TAKE 1 TABLET DAILY IN THE EVENING metformin 750 mg tablet extended release 24 hr 750 mg PO QAM Rx Instructions: TAKE 1 TABLET DAILY IN THE MORNING semaglutide 1 mg/dose (4 mg/3 mL) pen injector 1 mg subcut WK Rx Instructions: THURSDAYS Discharge Orders: Discharge Order (Routine); Ordered 02/05/23 Ordered By: New Tapia Admission Data Admit Date/Time: 02/02/23 03:31 Attending Provider: Madan Melgar Admit Provider: Narciso Tracy Primary Care Provider: Gisell Massey Other Providers: Narciso Tracy ; Coco Davidson ; Jennifer Gomes Jr Coding Level of Care Code 83732 IN/OBS DISCH 30 MIN/LESS Diagnoses Cholecystitis K81.9 DM2 (diabetes mellitus, type 2) E11.9 Hypertension I10 Severe sleep apnea G47.30 Esophageal reflux K21.9
--- NOTE | 2023-02-05 22:03 | Electrocardiogram Report ---
Test Reason : Blood Pressure : / mmHG Vent. Rate : 085 BPM Atrial Rate : 085 BPM P-R Int : 158 ms QRS Dur : 066 ms QT Int : 360 ms P-R-T Axes : 062 036 070 degrees QTc Int : 428 ms Normal sinus rhythm Low voltage QRS Borderline ECG When compared with ECG of 12-JUL-2014 15:46, QRS voltage has decreased Confirmed by Harley Whitehead ([id number]) on 02/05/2023 10:03:35 PM Referred By: REFERRED SELF Confirmed By:Harley Whitehead
[2023-02-07] MEDS ORDERED: ALENDRONATE SODIUM 10 MG TAB PO SCH (06:30)
[2023-02-07] MEDS ORDERED: ALENDRONATE 5 MG PO SCH (06:30)
== END 2023-02-05 19:26 | disposition home or self-care (01) | DRG 419 ==
LOC: ED 23:40 → SUATTDRO 02-02 03:31 → 3N 02-02 03:31